=== PATIENT | female | born 1940 | race Hispanic/Latino ===

== ENCOUNTER 2018-08-19 12:24 | Emergency (ER) | payer MEDICARE ==
[~2018-08-19] VITALS: Ht 154.9 cm; Wt 63.5 kg
--- OUTSIDE RECORDS SUMMARY | 2018-08-19 12:26 | XMS REPORT | Clinical Summary ---
Author Author [facility] Organization [facility] Address Unknown Phone Unavailable Care Team Providers Care Facility Practice Specialist Name Role Phone Catrachita Carter MD PCP Allergies Comments Active Allergy Reactions Severity Noted Date Codeine 02/13/2017 Meperidine 02/13/2017 Medications End Date Status Medication Sig Dispensed Refills Start Date Active alendronate (FOSAMAX) 70 Take 70 mg by 0 12/05/ MG tablet mouth every 7 7 days. Pt takes on Mon Active atorvastatin (LIPITOR) 10 Take 10 mg by 0 12/27/ MG tablet mouth every 7 evening. Active cholecalciferol, vitamin Take 1 tablet 0 D3, 5,000 unit tablet by mouth every morning. Active cycloSPORINE (SandIMMUNE) TAKE ONE (1) 0 25 MG capsule CAPSULE(S) BY 7 MOUTH TWICE A DAY. Active diltiazem CD (CardIZEM Take 180 mg 0 CD) 180 MG 24 hr capsule by mouth 2 7 (two) times a day. Active fluticasone (FLONASE) 50 2 sprays by 0 mcg/actuation nasal spray Each Nare 7 route daily as needed. Active furosemide (LASIX) 40 mg Take 40 mg by 0 tablet mouth every 7 morning. Active isosorbide mononitrate Take 30 mg by 0 (IMDUR) 30 MG 24 hr mouth every 7 tablet evening. Active levothyroxine (SYNTHROID, TAKE ONE (1) 0 LEVOXYL) 25 mcg tablet TABLET(S) BY 7 MOUTH DAILY. at 0600 Active metoprolol succinate XL Take 25 mg by 0 (TOPROL-XL) 25 mg 24 hr mouth every 7 tablet morning. Active ondansetron ODT 1 tab under 0 (ZOFRAN-ODT) 4 MG the tongue 7 disintegrating tablet every 6 hrs prn nausea Active potassium chloride 20 mEq Take 1 tablet 0 tablet extended release by mouth 7 every other day. Active predniSONE (DELTASONE) TAKE ONE (1) 0 2.5 mg tablet TABLET(S) BY 8 MOUTH TWICE A DAY. Active repaglinide (PRANDIN) 0.5 Take 1 tablet 0 12/05/ MG tablet daily 30 7 minutes before the dinner meal ( with largest meal ). Active tiZANidine (ZANAFLEX) 4 Take 2 mg by 0 MG tablet mouth nightly 7 as needed. Active traMADol (ULTRAM) 50 mg Take 25 mg by 0 tablet mouth daily as needed. Active aspirin (ECOTRIN) 81 MG Take 81 mg by 0 enteric coated tablet mouth every morning. Active cyanocobalamin 1,000 Inject 1,000 0 mcg/mL injection mcg into the shoulder, thigh, or buttocks every 30 (thirty) days. Active pantoprazole (PROTONIX) Take 40 mg by 0 40 MG EC tablet mouth daily as needed. Active Problems Problem Noted Date Severe sepsis 02/13/2017 Social History Date Tobacco Use Types Packs/Day Years Used Never Smoker Smokeless Tobacco: Never Used Alcohol Use Drinks/Week oz/Week Comments No Sex Assigned at Date Recorded Not on file Industry Job Start Date Occupation Not on file Not on file Not on file Travel End Travel History Travel Start No recent travel history available. Last Filed Vital Signs Not on file Plan of Treatment Health Maintenance Due Date Last Done Comments SHINGLES VACCINES (#1) 1990 INFLUENZA VACCINE 09/06/2018 11/24/2016, 12/08/2015 65+ PNEUMOCOCCAL VACCINE Completed 03/02/2016, 12/08/2006 Results Not on fileafter 08/18/2017 Insurance Type Payer Benefit Subscriber ID Effective Phone Address Plan / Dates Group [facility] xxxxxxxxxxx [id number] MANDI combs [facility] Advance Directives Patient has advance care planning documents, and code status on file. For more i nformation, please contact: Osvaldo Gutierrez [phone] [place] [address] Date Inactivated Comments Code Status Date Activated 02/17/2017 9:53 PM Full Code 02/13/2017 7:36 PM Code Status decision reached by: Patient
--- OUTSIDE RECORDS SUMMARY | 2018-08-19 12:27 | XMS REPORT | Clinical Summary ---
Author Author [facility] Address Unknown Phone Unavailable Care Team Providers Care Supervisor [employer] Name Role Phone Troncoso, Zay Lane PCP Allergies Comments Active Allergy Reactions Severity Noted Date Codeine Nausea And 03/19/2014 Vomiting Meperidine Nausea And 03/19/2014 Vomiting Medications End Date Status Medication Sig Dispensed Refills Start Date Active aspirin 81 MG EC Take 81 mg by 0 tabletIndications: mouth daily. Autoimmune hepatitis (HCC), Rheumatoid arthritis (HCC), Jaundice, Abnormal liver enzymes, Immunity status testing Active ferrous sulfate 324 mg Take 324 mg 0 (65 mg iron) by mouth TbECIndications: daily with Autoimmune hepatitis breakfast. (HCC), Rheumatoid arthritis (HCC), Jaundice, Abnormal liver enzymes, Immunity status testing Active leflunomide (ARAVA) 20 MG Take 20 mg by 0 tabletIndications: mouth daily. Autoimmune hepatitis (HCC), Rheumatoid arthritis (HCC), Jaundice, Abnormal liver enzymes, Immunity status testing Active insulin aspart Inject 0 protamine-insulin aspart subcutaneousl (NOVOLOG MIX 70/30) 100 y 2 (two) unit/mL (70-30) times daily injectionIndications: with Autoimmune hepatitis breakfast and (HCC), Rheumatoid dinner. 15 arthritis (HCC), units sq in Jaundice, Abnormal liver am and 10 enzymes, Immunity status units sq in testing pm Active cycloSPORINE (SANDIMMUNE) Take 25 mg by 0 25 MG capsule mouth 2 (two) 5 times daily Take one capsule by mouth in the AM (25 mg) and one capsule by mouth in the PM (25 MG) . Active predniSONE (DELTASONE) 5 Take 1 tablet 30 tablet 0 MG tablet (5 mg total) 5 by mouth daily. Active FOSAMAX 70 mg tablet Take 70 mg by 0 mouth daily . 9 Active atorvastatin (LIPITOR) 10 Take 10 mg by 0 MG tablet mouth daily. Active DILT-XR 180 mg 24 hr Take 180 mg 0 capsule by mouth 2 9 (two) times daily . Active furosemide (LASIX) 20 MG Take 20 mg by 0 tablet mouth daily. Active isosorbide mononitrate Take 30 mg by 0 (IMDUR) 30 MG 24 hr mouth daily. tablet Active levothyroxine (SYNTHROID, Take 25 mcg 0 LEVOTHROID) 25 MCG tablet by mouth Every morning on an empty stomach. Active metoprolol (TOPROL-XL) 25 Take 25 mg by 0 MG 24 hr tablet mouth daily. Active repaglinide (PRANDIN) 0.5 Take 0.5 mg 0 MG tablet by mouth 3 (three) times daily before meals. Active potassium chloride SA Take 10 mEq 0 (K-DUR,KLOR-CON) 10 MEQ by mouth tablet daily. Active cholecalciferol, vitamin Take 5,000 0 D3, 5,000 unit Tab Units by mouth daily. Active Lactobac no.41/Bifidobact Take by mouth 0 no.7 (PROBIOTIC-10 ORAL) daily. 07/09/2018 Discontinued CALCIUM CARBONATE/VITAMIN Take 1 0 D3 (CALTRATE 600 + D capsule by ORAL)Indications: mouth daily. Autoimmune hepatitis (HCC), Rheumatoid arthritis (HCC), Jaundice, Abnormal liver enzymes, Immunity status testing 07/09/2018 Discontinued VIT B COMP/E AC Take 1 0 SUCC/FA/HC 105 capsule by (ESTRONATURAL mouth daily. ORAL)Indications: Autoimmune hepatitis (HCC), Rheumatoid arthritis (HCC), Jaundice, Abnormal liver enzymes, Immunity status testing 07/09/2018 Discontinued levothyroxine (SYNTHROID, Take 50 mcg 0 LEVOTHROID) 50 MCG by mouth tabletIndications: daily. Autoimmune hepatitis (HCC), Rheumatoid arthritis (HCC), Jaundice, Abnormal liver enzymes, Immunity status testing 07/09/2018 Discontinued cyanocobalamin (VITAMIN Take 100 mcg 0 B-12) 1000 MCG by mouth tabletIndications: daily. Autoimmune hepatitis (HCC), Rheumatoid arthritis (HCC), Jaundice, Abnormal liver enzymes, Immunity status testing 07/09/2018 Discontinued potassium gluconate 595 Take 1 tablet 0 (99) mg TabIndications: by mouth Autoimmune hepatitis daily. (HCC), Rheumatoid arthritis (HCC), Jaundice, Abnormal liver enzymes, Immunity status testing 07/09/2018 Discontinued pantoprazole (PROTONIX) Take 40 mg by 0 40 MG tabletIndications: mouth daily. Autoimmune hepatitis (HCC), Rheumatoid arthritis (HCC), Jaundice, Abnormal liver enzymes, Immunity status testing 07/09/2018 Discontinued metoprolol (TOPROL-XL) 50 Take 50 mg by 0 MG 24 hr mouth daily. tabletIndications: Autoimmune hepatitis (HCC), Rheumatoid arthritis (HCC), Jaundice, Abnormal liver enzymes, Immunity status testing 07/09/2018 Discontinued traMADol (ULTRAM) 50 mg Take 1 tablet 60 tablet 0 tabletIndications: (50 mg total) 5 Autoimmune hepatitis by mouth (HCC), Rheumatoid every 6 (six) arthritis (HCC), hours as Jaundice, Abnormal liver needed for enzymes, Immunity status Pain. testing 07/09/2018 Discontinued predniSONE (DELTASONE) 5 Take 7.5 mg 30 tablet 0 MG tablet (1.5 tablets) 5 once daily for 7 days. Take 5 mg (1 tab) once daily for 7 days. Take 2.5 mg (half tab) once daily for 7 days.. 07/09/2018 Discontinued denosumab (PROLIA) 60 Inject 60 mg 0 mg/mL Syrg subcutaneousl y every 6 (six) months. 07/09/2018 Discontinued cycloSPORINE modified TAKE ONE 270 capsule 0 (NEORAL) 25 MG capsule CAPSULE BY 5 MOUTH EVERY MORNING AND 2 CAPSULES EVERY EVENING Active Problems Problem Noted Date History of hepatitis E virus infection 08/29/2014 Liver failure 06/27/2014 Malaise 06/27/2014 Lupus (systemic lupus erythematosus) 06/27/2014 History of UTI 04/18/2014 Autoimmune hepatitis 03/19/2014 Rheumatoid arthritis 03/19/2014 Jaundice 03/19/2014 Abnormal liver enzymes 03/19/2014 Immunity status testing 03/19/2014 Encounters Care Team Description Date Type Specialty Jorden Thompson MD Autoimmune hepatitis (HCC) (Primary Dx); Rheumatoid arthritis, involving unspecified site, unspecified rheumatoid factor presence (HCC); Immunity status testing 07/09/2018 Office Visit Hepatology after 08/18/2017 Family History Medical History Relation Name Comments Diabetes Brother Heart disease Brother Diabetes Brother Heart disease Brother Colon cancer Brother Relation Name Status Comments Brother Brother Brother Alive Father Mother Social History Date Tobacco Use Types Packs/Day Years Used Quit: 02/06/1979 Former Smoker Cigarettes Smokeless Tobacco: Never Used Alcohol Use Drinks/Week oz/Week Comments No 0.0 SOCIAL-QUIT 1979 Sex Assigned at Date Recorded Not on file Industry Job Start Date Occupation Not on file Not on file Not on file Travel End Travel History Travel Start No recent travel history available. Last Filed Vital Signs Time Taken Vital Sign Reading 07/09/2018 11:04 AM CDT Blood Pressure 152/76 07/09/2018 11:04 AM CDT Pulse 65 07/09/2018 11:04 AM CDT Temperature 36.7 C (98.1 F) 07/09/2018 11:04 AM CDT Respiratory Rate 14 07/09/2018 11:04 AM CDT Oxygen Saturation 97% - Inhaled Oxygen - Concentration 07/09/2018 11:04 AM CDT Weight 64.7 kg (142 lb 9.6 oz) 07/09/2018 11:04 AM CDT Height 155.2 cm (5' 1.1") 07/09/2018 11:04 AM CDT Body Mass Index 26.86 Plan of Treatment Not on file Results Not on fileafter 08/18/2017 Insurance Payer Benefit Subscriber ID Type Phone Address Plan / Group [facility] xxxxxxxxxxx MEDICARE ADV [address] ([place]) [place] [address] Advance Directives For more information, please contact: [address] [address] Date Inactivated Comments Code Status Date Activated 07/14/2014 8:40 PM Full Code 06/27/2014 9:36 PM This code status was determined by: Patient
--- OUTSIDE RECORDS SUMMARY | 2018-08-19 12:29 | XMS REPORT | Continuity of Care Document ---
Author Author [employer] Address Unknown Phone Unavailable Care Team Providers Care Strategic Debriefing Officer Name Role Phone [employer] Unavailable Unavailable Problems Problem Status Onset Date Classification Date Reported Comments Source SCREENING MAMMOGRAM Active 04/16/2015 [facility] ANEMIA, HYPONATREMIA Active 08/03/2014 [facility] ABNORMAL LABS Active 08/03/2014 [facility] AUTOIMMUNE HEPATITIS, JAUNDICE, Active 01/10/2014 [facility] AUTO IMMUNE HTPTISIS Active 01/10/2014 [facility] EXACERBATION OF AUTOIMMUNE HEPATITIS, JA Active 01/10/2014 [facility] PAIN Active 01/08/2014 [facility] SCREENING Active 12/09/2013 [facility] FLARE UP OF LIVER Active 12/11/2012 [facility] AUTOIMMUNE HEPATITIS, UTI Active 12/11/2012 [facility] AUTOIMMUNE HEP Active 12/11/2012 [facility] ROUTINE Active 09/24/[address] [facility] [address] SENT Active 07/17/2012 [facility] LIVER FAILURE Active 07/17/2012 [facility] ELEVATED LFT Active 07/12/2012 [facility] 511.9 Active 10/08/2011 [facility] DENSITY Active 09/06/2011 [facility] ROUTINE SCREENING Active 08/31/2011 [facility] NECK PAIN Active 07/07/2011 [facility] Anemia1 Active 10/04/2007 Problem 04/24/2015 Data migrated from [employer] on 07/05/14. [facility] Hypertensive disorder2 Active 10/04/2007 Problem 04/24/2015 Data migrated from [employer] on 07/05/14. [facility] Migraine3 Active 10/04/2007 Problem 04/24/2015 Data migrated from [employer] on 07/05/14. [facility] Neck pain4 Active 10/04/2007 Problem 04/24/2015 Data migrated from [employer] on 07/05/14. [facility] Shoulder pain5 Active 10/04/2007 Problem 04/24/2015 Data migrated from [employer] on 07/05/14. [facility] Angina Resolved Problem 09/27/2012 [facility] Benign hypertension Resolved Problem 09/27/2012 [facility] H/O: hypothyroidism Active Problem 09/27/2012 [facility] H/O: rheumatoid arthritis Active Problem 09/27/2012 [facility] Hypercholesterolemia Active Problem 09/27/2012 [facility] Liver enzymes abnormal Resolved Problem 09/27/2012 [facility] Nausea Resolved Problem 12/16/2012 [facility] UTI Resolved Problem 12/16/2012 [facility] Angina Resolved Problem 04/24/2015 [facility] Benign hypertension Resolved Problem 04/24/2015 [facility] H/O: hypothyroidism Active Problem 04/24/2015 [facility] H/O: rheumatoid arthritis Active Problem 04/24/2015 [facility] Hypercholesterolemia Active Problem 04/24/2015 [facility] Liver enzymes abnormal Resolved Problem 04/24/2015 [facility] Final: 08/11/2014 [facility] Nausea Resolved Problem 04/24/2015 [facility] UTI (Confirmed) Resolved Problem 04/24/2015 [facility] NECK PAIN, CERVICAL SPONDYLOSIS, Active [facility] CIRRHOSIS OF LIVER NOS Active [facility] HEPATITIS NOS Active [facility] URIN TRACT INFECTION NOS Active [facility] JAUNDICE NOS Active [facility] ANEMIA NOS Active [facility] ENCNTR SCREEN MAMMOGRAM FOR MALIGNANT NE Active [facility] Medications Medication Details Route Status Patient Instructions Ordering Provider Order Date Source Coumadin 3 mg, 3 tab, Route: PO, Drug form: TAB, QSun, Start date: 08/10/14 17:00:00, Duration: 30 day, Stop date: 09/07/14 17:00:00Notes: Nurse to ensure documentation of patient education per anticoagulation policy. Avoid large intake of vitamin-K containing foods diet. (Same As: Coumadin) No Longer Active 08/10/2014 [facility] Cephalexin 500 MG Oral Capsule [Keflex] 500 mg=1 cap, PO, QID, X 5 day, # 20 cap, 0 Refill(s) Active 2014 [facility] Docusate Sodium 100 MG Oral Capsule [Colace] 100 mg=1 cap, PO, BID, PRN as needed for constipation, # 30 cap, 0 Refill(s) Active 2014 [facility] diltiazem 180 mg/24 hours oral capsule, extended release 360 mg=2 cap, PO, Daily, # 60 cap, 0 Refill(s) Active 2014 [facility] spironolactone 50 mg oral tablet 50 mg=1 tab, PO, Daily, 0 Refill(s) Active 2014 [facility] cetirizine 5 mg oral tablet 5 mg=1 tab, PO, Daily, X 30 day, # 30 tab, 0 Refill(s) Active 2014 [facility] Zyrtec 10 mg, 2 tab, Route: PO, Drug form: TAB, Daily, Dosing Weight 70.091, kg, Start date: 08/08/14 9:00:00, Duration: 30 day, Stop date: 09/06/14 9:00:00Notes: (Same As: Zyrtec) Inactive 2014 [facility] Docusate Sodium 100 MG Oral Capsule [Colace] 100 mg, 1 cap, Route: PO, Drug form: CAP, BID, Dosing Weight 70.091, kg, Start date: 08/08/14 9:00:00, Duration: 30 day, Stop date: 09/06/14 17:00:00Notes: (Same as: Colace) (Do Not Crush) Inactive 2014 [facility] Diltiazem Hydrochloride XT 360 mg, 2 cap, Route: PO, Drug form: ERCAP, Daily, Dosing Weight 70.091, kg, Start date: 08/08/14 9:00:00, Duration: 30 day, Stop date: 09/06/14 9:00:00Notes: (Same as:Cardizem CD) Before meals. DO NOT CRUSH. Inactive 2014 [facility] Miralax 17 gm, 1 pkt, Route: PO, Drug form: PWDR, Daily, Dosing Weight 70.091, kg, PRN Constipation, Start date: 08/07/14 19:37:00, Duration: 30 day, Stop date: 09/06/14 19:36:00Notes: Dissolve in 8 oz of water or juice. (Same as: Miralax) No Longer Active 2014 [facility] Robitussin 100 mg, Route: PO, Dosing Weight 70.091, kg, Q6H, Start date: 08/07/14 18:00:00, Duration: 30 day, Stop date: 09/06/14 12:00:00 Inactive 08/07/2014 [facility] Coumadin 2.5 mg, 1 tab, Route: PO, Drug form: TAB, , Dosing Weight 70.091, kg, Start date: 08/07/14 17:00:00, Duration: 30 day, Stop date: 09/04/14 17:00:00Notes: Nurse to ensure documentation of patient education per anticoagulation policy. Avoid large intake of vitamin-K containing foods diet. (Same As: Coumadin) No Longer Active 08/07/2014 [facility] Rocephin 1 gm, Route: IVPB, [id number], Dosing Weight 70.091, kg, Start date: 08/07/14 16:00:00, Duration: 30 day, Stop date: 09/05/14 16:00:00Notes: Mix in NS 100ml ADV bag and infuse over 30 Minutes (Same As: Rocephin) No Longer Active 08/07/2014 [facility] Robitussin 100 mg, 5 mL, Route: PO, Drug Form: LIQ, Dosing Weight 70.091, kg, Q6H, PRN Cough, Start date: 08/07/14 13:33:00, Duration: 30 day, Stop date: 09/06/14 13:32:00Notes: (Same as: Robitussin) No Longer Active 08/07/2014 [facility] Cardizem 240 mg, 1 cap, Route: PO, Drug form: ERCAP, ONCE, Dosing Weight 70.091, kg, Start date: 08/07/14 13:14:00, Stop date: 08/07/14 13:14:00Notes: (Same as: Cardizem CD) Before meals. DO NOT CRUSH. Inactive 08/07/2014 [facility] ferrous sulfate 225 mg, 3.75 mL, Route: PO, Drug form: LIQ, TID, Start date: 08/07/14 13:00:00, Duration: 30 day, Stop date: 09/06/14 9:00:00Notes: Give with food. iron elemental 12mg/ia=698pk/5ml as ferrous sulfate No Longer Active 08/07/2014 [facility] Robitussin Route: PO, Drug Form: TAB, Dosing Weight 70.091, kg, Q6H, PRN Cough, Start date: 08/07/14 12:39:00, Duration: 30 day, Stop date: 09/06/14 12:38:00 Inactive 08/07/2014 [facility] Tylenol 325 mg, 1 tab, Route: PO, Drug form: TAB, Daily, Dosing Weight 70.091, kg, PRN Headache 1-5, Start date: 08/07/14 10:03:00, Duration: 30 day, Stop date: 09/06/14 10:02:00Notes: Do not exceed 4 gm/day. (Same as: Tylenol) No Longer Active 08/07/2014 [facility] Aldactone 50 mg, 1 tab, Route: PO, Drug form: TAB, Daily, Dosing Weight 70.091, kg, Start date: 08/07/14 9:00:00, Duration: 30 day, Stop date: 09/05/14 9:00:00Notes: (Same As: Aldactone) No Longer Active 08/07/2014 [facility] diltiazem 125 mg + Sodium Chloride 0.9% (titrate) 100 mL 100 mL, Rate: Titrate, Dosing Weight 70.091, kg, Route: IV, Total Volume: 125 mL, Start Date: 08/07/14 0:02:00, Duration: 30 day, Stop date: 09/06/14 0:01:00, Replace Every: 24 hrNotes: (Same as: Cardizem) No Longer Active 08/07/2014 [facility] Diltiazem Hydrochloride XT 120 mg, 1 cap, Route: PO, Drug form: ERCAP, Daily, Dosing Weight 70.091, kg, Start date: 08/06/14 17:05:00, Duration: 30 day, Stop date: 09/05/14 9:00:00Notes: (Same as: Cardizem CD) Do Not Crush Before meals. No Longer Active 08/06/2014 [facility] Coumadin 3 mg, 3 tab, Route: PO, Drug form: TAB, Q-M-W-F, Start date: 08/06/14 17:00:00, Duration: 30 day, Stop date: 09/03/14 17:00:00Notes: Nurse to ensure documentation of patient education per anticoagulation policy. Avoid large intake of vitamin-K containing foods diet. (Same As: Coumadin) Inactive 08/06/2014 [facility] cyclosporine, modified 25 MG Oral Capsule 50 mg, 2 cap, Route: PO, Drug form: CAP, QPM, Dosing Weight 70.091, kg, Start date: 08/06/14 17:00:00, Duration: 30 day, Stop date: 09/04/14 17:00:00Notes: "Avoid grapefruit and grapefruit juice Neoral No Longer Active 08/06/2014 [facility] Actigall 300 mg, 1 cap, Route: PO, Drug form: CAP, TID, Start date: 08/06/14 12:00:00, Duration: 30 day, Stop date: 09/05/14 9:00:00Notes: (Same As: Actigall) No Longer Active 08/06/2014 [facility] Aldactone 25 mg, 1 tab, Route: PO, Drug form: TAB, ONCE, Start date: 08/06/14 9:00:00, Stop date: 08/06/14 9:00:00Notes: (Same As: Aldactone) Inactive 08/06/2014 [facility] Prednisone 5 mg, 1 tab, Route: PO, Drug form: TAB, Daily, Dosing Weight 70.091, kg, Start date: 08/06/14 9:00:00, Duration: 30 day, Stop date: 09/04/14 9:00:00Notes: Take with food. No Longer Active 08/06/2014 [facility] Slow Release Iron 45 mg oral tablet, extended release 45 mg, 1 tab, Route: PO, Drug form: ERTAB, Daily, Dosing Weight 70.091, kg, Start date: 08/06/14 9:00:00, Duration: 30 day, Stop date: 09/04/14 9:00:00 No Longer Active 08/06/2014 [facility] Ursodeoxycholate 500 mg, Route: PO, Drug form: TAB, TID, Dosing Weight 70.091, kg, Start date: 08/06/14 9:00:00, Duration: 30 day, Stop date: 09/04/14 17:00:00 Inactive 08/06/2014 [facility] Arava 20 mg, 2 tab, Route: PO, Drug form: TAB, Daily, Dosing Weight 70.091, kg, Start date: 08/06/14 9:00:00, Stop date: 09/04/14 9:00:00Notes: Non-Formulary Drug. (Same as:Arava) No Longer Active 08/06/2014 [facility] cyclosporine, modified 25 MG Oral Capsule 25 mg, 1 cap, Route: PO, Drug form: CAP, QAM, Dosing Weight 70.091, kg, Start date: 08/06/14 9:00:00, Duration: 30 day, Stop date: 09/04/14 9:00:00Notes: "Avoid grapefruit and grapefruit juice Neoral No Longer Active 08/06/2014 [facility] ursodiol 500 mg oral tablet 500 mg=1 tab, PO, TID, 0 Refill(s) Active 08/06/2014 [facility] cycloSPORINE microemulsion 50 mg oral capsule 50 mg=1 cap, PO, QPM, # 60 cap, 0 Refill(s) Active 08/06/2014 [facility] cyclosporine, modified 25 MG Oral Capsule 25 mg=1 cap, PO, QAM, # 180 cap, 0 Refill(s) Active 08/06/2014 [facility] leflunomide 20 MG Oral Tablet [Arava] 20 mg=1 tab, PO, Daily, # 30 tab, 0 Refill(s) Active 08/06/2014 [facility] Fosamax 70 mg, PO, Q7D, 0 Refill(s) Active 08/06/2014 [facility] diltiazem 125 mg + Sodium Chloride 0.9% (titrate) 100 mL 100 mL, Rate: Titrate, Dosing Weight 70.091, kg, Route: IV, Total Volume: 125 mL, Start Date: 08/05/14 18:18:00, Duration: 30 day, Stop date: 09/04/14 18:17:00, Replace Every: 24 hrNotes: (Same as: Cardizem) No Longer Active 08/05/2014 [facility] Diltiazem 10 mg, 2 mL, Route: IV, Drug form: INJ, ONCE, Dosing Weight 70.091, kg, Start date: 08/05/14 17:58:00, Stop date: 08/05/14 17:58:00Notes: (Same as: Cardizem) Inactive 08/05/2014 [facility] predniSONE 5 mg oral tablet 5 mg=1 tab, PO, Daily, 0 Refill(s) On Hold 08/05/2014 [facility] Aspirin 81 MG Enteric Coated Tablet 81 mg, 1 tab, Route: PO, Drug form: ECTAB, Daily, Dosing Weight 60.455, kg, Start date: 08/05/14 9:00:00, Duration: 30 day, Stop date: 09/03/14 9:00:00Notes: Do not crush or chew. (Same As: Ecotrin) No Longer Active 08/05/2014 [facility] Detrol LA 4 mg, 1 cap, Route: PO, Drug form: CAP, Daily, Dosing Weight 60.455, kg, Start date: 08/05/14 9:00:00, Duration: 30 day, Stop date: 09/03/14 9:00:00Notes: Do Not Crush. (Same As: Detrol LA) No Longer Active 08/05/2014 [facility] Prednisone 60 mg, 3 tab, Route: PO, Drug form: TAB, Daily, Dosing Weight 60.455, kg, Start date: 08/05/14 9:00:00, Duration: 30 day, Stop date: 09/03/14 9:00:00Notes: Take with food. No Longer Active 08/05/2014 [facility] metoprolol tartrate 25 mg, 1 tab, Route: PO, Drug form: ERTAB, Daily, Dosing Weight 60.455, kg, Start date: 08/05/14 9:00:00, Duration: 30 day, Stop date: 09/03/14 9:00:00Notes: (Same as: Toprol XL) Do Not Crush No Longer Active 08/05/2014 [facility] Isosorbide 30 mg, 1 tab, Route: PO, Drug form: ERTAB, Daily, Dosing Weight 60.455, kg, Start date: 08/05/14 9:00:00, Duration: 30 day, Stop date: 09/03/14 9:00:00Notes: (Same as:Imdur) "Do Not Crush" Take on empty stomach/ full glass of water. Do not crush No Longer Active 08/05/2014 [facility] Slow Release Iron 45 mg oral tablet, extended release 45 mg, 1 tab, Route: PO, Drug form: ERTAB, Daily, Dosing Weight 60.455, kg, Start date: 08/05/14 9:00:00, Duration: 30 day, Stop date: 09/03/14 9:00:00 No Longer Active 08/05/2014 [facility] Thyroxine 50 microgram, 1 tab, Route: PO, Drug form: TAB, Q630AM, Dosing Weight 60.455, kg, Start date: 08/05/14 6:30:00, Duration: 30 day, Stop date: 09/03/14 6:30:00Notes: Take 1 hour before or 2 hours after meal; Enteral feeds may interefere with the absorption of this medication.(Same as:Levothroid, Synthroid) No Longer Active 08/05/2014 [facility] Spironolactone 25 mg, 1 tab, Route: PO, Drug form: TAB, BID, Dosing Weight 60.455, kg, Start date: 08/04/14 17:00:00, Duration: 30 day, Stop date: 09/03/14 9:00:00Notes: (Same As: Aldactone) No Longer Active 08/04/2014 [facility] calcium-vitamin D 600 mg-200 units oral tablet 1 tab, Route: PO, Drug Form: TAB, Dosing Weight 60.455, kg, BID, Start date: 08/04/14 17:00:00, Duration: 30 day, Stop date: 09/03/14 9:00:00Notes: (Same As: Ubaldo-D, OsCal-D, Oyster Calcium) No Longer Active 08/04/2014 [facility] pantoprazole 40 mg, 1 tab, Route: PO, Drug form: ECTAB, Before Dinner, Dosing Weight 60.455, kg, Start date: 08/04/14 16:30:00, Duration: 30 day, Stop date: 09/02/14 16:30:00Notes: Tablet should not be chewed or crushed. (Same as: Protonix) No Longer Active 08/04/2014 [facility] Enoxaparin 30 mg, 0.3 mL, Route: SUB-Q, Drug form: INJ, [id number], Dosing Weight 60.455, kg, Start date: 08/04/14 15:00:00, Duration: 30 day, Stop date: 09/02/14 15:00:00Notes: (Same as: Lovenox) No Longer Active 08/04/2014 [facility] Vitamin B12 1,000 microgram, 1 mL, Route: IM, Drug form: INJ, Q30D, Dosing Weight 60.455, kg, Start date: 08/04/14 15:00:00, Duration: 30 day, Stop date: 09/03/14 9:00:00Notes: (Same As: Vitamin B12) No Longer Active 08/04/2014 [facility] nitroglycerin 0.4 mg sublingual tablet 0.4 mg, 1 tab, Route: SL, Drug form: TAB, Q5Min, PRN Chest Pain, Start date: 08/04/14 9:15:00, Duration: 30 day, Stop date: 09/03/14 9:14:00Notes: (Same as:Nitroquick, Nitrostat) "Do Not Crush" Sublingual tablet No Longer Active 08/04/2014 [facility] atropine 0.5 mg, 5 mL, Route: IVP, Drug form: INJ, PRN, PRN Bradycardia, Start date: 08/04/14 9:15:00, Duration: 30 day, Stop date: 09/03/14 9:14:00 No Longer Active 08/04/2014 [facility] Sodium Chloride 0.154 MEQ/ML Injectable Solution 1,000 mL, Rate: 90 ml/hr, Infuse over: 11.1 hr, Route: IV, Dosing Weight 56.818 kg, Total Volume: 1,000, Start date: 08/04/14 5:49:00, Duration: 30 day, Stop date: 09/03/14 5:48:00 No Longer Active 08/04/2014 [facility] Saline Flush 0.9% 10 ml, Route: IVP, Drug Form: INJ, Dosing Weight 56.818, kg, PRN, PRN Line Flush, Start date: 08/04/14 5:49:00, Duration: 30 day, Stop date: 09/03/14 5:48:00Notes: (Same as: BD Posiflush) No Longer Active 08/04/2014 [facility] Ondansetron 4 mg, 2 mL, Route: IVP, Drug form: INJ, Q8H, Dosing Weight 56.818, kg, PRN Nausea & Vomiting, Start date: 08/04/14 5:49:00, Duration: 30 day, Stop date: 09/03/14 5:48:00Notes: (Same as: Candy) MEDICATION WASTE Product Size: 4 mg Product Wasted: ___ mg No Longer Active 08/04/2014 [facility] Morphine 2 mg, 1 mL, Route: IVP, Drug form: INJ, Q3H, Dosing Weight 56.818, kg, PRN Pain Score 4-6, Start date: 08/04/14 5:49:00, Duration: 30 day, Stop date: 09/03/14 5:48:00Notes: (Same as:MORPhine Sulfate) No Longer Active 08/04/2014 [facility] Sodium Chloride 0.154 MEQ/ML Injectable Solution 500 mL, 500 ml/hr, Infuse Over: 1 hr, Route: IV, 500, Drug form: INJ, ONCE, Priority: STAT, Dosing Weight 56.818 kg, Start date: 08/04/14 1:25:00, Duration: 1 doses or times, Stop date: 08/04/14 1:25:00 Inactive 08/04/2014 [facility] Ondansetron 4 mg, 2 mL, Route: IVP, Drug form: INJ, ONCE, Dosing Weight 56.818, kg, Priority: STAT, Start date: 08/03/14 23:05:00, Stop date: 08/03/14 23:05:00Notes: (Same as: Zofran) MEDICATION WASTE Product Size: 4 mg Product Wasted: ___ mg No Longer Active 08/04/2014 [facility] pantoprazole 40 mg, Route: IVP, Drug form: INJ, ONCE, Dosing Weight 56.818, kg, For IV push reconstitute with 10 ml 0.9% sodium chloride and push over at least 3 minutes, Priority: STAT, Start date: 08/03/14 23:05:00, Stop date: 08/03/14 23:05:00Notes: For IV push reconstitute with 10 ml 0.9% sodium chloride and push over 2 minutes. (Same as: Protonix) No Longer Active 08/04/2014 [facility] Saline Flush 0.9% 10 mL, Route: IVP, Drug Form: INJ, Dosing Weight 56.818, kg, PRN, PRN Line Flush, Start date: 08/03/14 23:05:00, Duration: 30 day, Stop date: 09/02/14 23:04:00Notes: (Same as: BD Posiflush) No Longer Active 08/04/2014 [facility] Prednisone 60 mg, 3 tab, Route: PO, Drug form: TAB, Daily, Dosing Weight 69.545, kg, Start date: 01/16/14 9:00:00, Duration: 30 day, Stop date: 02/14/14 9:00:00Notes: Take with food. No Longer Active 01/16/2014 [facility] predniSONE 20 mg oral tablet 60 mg, PO, Daily, 0 Refill(s) Active 01/15/2014 [facility] Prednisone 60 mg, 3 tab, Route: PO, Drug form: TAB, ONCE, Dosing Weight 69.545, kg, Start date: 01/15/14 9:03:00, Stop date: 01/15/14 9:03:00Notes: Take with food. Inactive 01/15/2014 [facility] Methylprednisolone 125 mg, 2 mL, Route: IVP, Drug form: INJ, BID, Dosing Weight 69.545, kg, Start date: 01/14/14 9:00:00, Duration: 30 day, Stop date: 02/12/14 17:00:00Notes: (Same as:Solu-MEDROL, A-Methapred) No Longer Active 01/14/2014 [facility] NS 1,000 mL 1,000 mL, Rate: 64 ml/hr, Infuse over: 15.6 hr, Route: IV, Dosing Weight 69.545 kg, Total Volume: 1,000, Start date: 01/12/14 19:53:00, Duration: 30 day, Stop date: 02/11/14 19:52:00 No Longer Active 01/13/2014 [facility] Sodium Chloride 0.9% IV 500 mL 500 mL, Rate: 64 ml/hr, Infuse over: 7.8 hr, Route: IV, Dosing Weight 69.545 kg, Total Volume: 500, Start date: 01/12/14 15:28:00, Stop date: 02/09/14 14:47:00 Inactive 01/12/2014 [facility] Detrol LA 4 mg, 1 cap, Route: PO, Drug form: CAP, Daily, Dosing Weight 69.545, kg, Start date: 01/12/14 9:00:00, Duration: 30 day, Stop date: 02/10/14 9:00:00Notes: Do Not Crush. (Same As: Detrol LA) No Longer Active 01/12/2014 [facility] ferrous sulfate 325 mg, 1 tab, Route: PO, Drug form: ECTAB, Daily, Start date: 01/12/14 9:00:00, Duration: 30 day, Stop date: 02/10/14 9:00:00Notes: Give with food. "Do Not Crush" No Longer Active 01/12/2014 [facility] metoprolol tartrate 25 mg, 1 tab, Route: PO, Drug form: ERTAB, Daily, Dosing Weight 69.545, kg, Start date: 01/12/14 9:00:00, Duration: 30 day, Stop date: 02/09/14 21:00:00Notes: (Same as: Toprol XL) Do Not Crush No Longer Active 01/12/2014 [facility] Slow Release Iron 45 mg oral tablet, extended release 45 mg, 1 tab, Route: PO, Drug form: ERTAB, Daily, Dosing Weight 69.545, kg, Start date: 01/12/14 9:00:00, Duration: 30 day, Stop date: 02/10/14 9:00:00 No Longer Active 01/12/2014 [facility] Aspirin 81 MG Enteric Coated Tablet 81 mg, 1 tab, Route: PO, Drug form: ECTAB, Daily, Dosing Weight 69.545, kg, Start date: 01/12/14 9:00:00, Duration: 30 day, Stop date: 02/10/14 9:00:00Notes: Do not crush or chew. (Same As: Ecotrin) No Longer Active 01/12/2014 [facility] Entocort EC 9 mg, Route: PO, Drug form: ERCAP, Daily, Dosing Weight 69.545, kg, Start date: 01/12/14 9:00:00, Duration: 30 day, Stop date: 02/10/14 9:00:00 No Longer Active 01/12/2014 [facility] Thyroxine 50 microgram, 1 tab, Route: PO, Drug form: TAB, Q630AM, Dosing Weight 69.545, kg, Start date: 01/12/14 6:30:00, Duration: 30 day, Stop date: 02/10/14 6:30:00Notes: Take 1 hour before or 2 hours after meal; Enteral feeds may interefere with the absorption of this medication.(Same as:Levothroid, Synthroid) No Longer Active 01/12/2014 [facility] Spironolactone 25 mg, 1 tab, Route: PO, Drug form: TAB, Q12H, Dosing Weight 69.545, kg, Start date: 01/11/14 21:00:00, Duration: 30 day, Stop date: 02/10/14 9:00:00Notes: (Same As: Aldactone) No Longer Active 01/12/2014 [facility] Isosorbide 30 mg, 1 tab, Route: PO, Drug form: ERTAB, Daily, Dosing Weight 69.545, kg, Start date: 01/11/14 21:00:00, Stop date: 02/10/14 9:00:00Notes: (Same as:Imdur) "Do Not Crush" Take on empty stomach/ full glass of water. Do not crush No Longer Active 01/12/2014 [facility] pantoprazole 40 mg, 1 tab, Route: PO, Drug form: ECTAB, Before Dinner, Dosing Weight 69.545, kg, Start date: 01/11/14 16:30:00, Duration: 30 day, Stop date: 02/09/14 16:30:00Notes: Tablet should not be chewed or crushed. (Same as: Protonix) No Longer Active 01/11/2014 [facility] Enoxaparin 40 mg, 0.4 mL, Route: SUB-Q, Drug form: INJ, [id number], Dosing Weight 69.545, kg, Start date: 01/11/14 12:00:00, Duration: 30 day, Stop date: 02/09/14 12:00:00Notes: (Same as: Lovenox) No Longer Active 01/11/2014 [facility] multivitamin 1 tab, Route: PO, Drug Form: TAB, Daily, Start date: 01/11/14 9:00:00, Duration: 30 day, Stop date: 02/09/14 9:00:00Notes: (Same as:One Tab Daily, Tab-A-Leanne + Beta Carotene) Give with food. No Longer Active 01/11/2014 [facility] metoprolol 25 mg oral tablet, extended release PO, Daily, 0 Refill(s) Active 01/10/2014 [facility] Entocort EC 3 mg oral capsule, extended release 9 mg=3 cap, PO, Daily, # 90 cap, 0 Refill(s) No Longer Active 01/10/2014 [facility] spironolactone 25 mg oral tablet 25 mg=1 tab, PO, BID, # 60 tab, 0 Refill(s) Active 01/10/2014 [facility] tramadol hydrochloride 50 MG Oral Tablet 50 mg=1 tab, PO, Q4H, Pain, # 60 tab, 0 Refill(s) Active 01/10/2014 [facility] methylPREDNISolone 125 mg, 2 mL, Route: IV, Drug form: INJ, Q6H-02, Start date: 01/10/14 15:00:00, Duration: 30 day, Stop date: 02/09/14 14:00:00Notes: (Same as:Solu-MEDROL, A-Methapred) No Longer Active 01/10/2014 [facility] NovoLOG FlexPen 1 unit, 0.01 mL, Route: SUB-Q, Drug form: SOLN, QID-Before Meals, PRN Blood Glucose Results, Start date: 01/10/14 14:52:00, Duration: 30 day, Stop date: 02/09/14 14:51:00Notes: Roll in palms of hands gently; Do not shake vigorously. (Same as: NovoLOG) "single patient use only" Stable for 28 days at room temperature. Expires in days from Date No Longer Active 01/10/2014 [facility] Dextrose 50% in Water IV 50 mL, Route: IVP, Start date: 01/10/14 14:52:00, Duration: 30 day, Stop date: 02/09/14 14:51:00, PRN Blood Glucose Results No Longer Active 01/10/2014 [facility] glucagon 1 mg, Route: IM, Drug form: PDR/INJ, PRN, PRN Blood Glucose Results, Start date: 01/10/14 14:52:00, Duration: 30 day, Stop date: 02/09/14 14:51:00 No Longer Active 01/10/2014 [facility] NovoLOG FlexPen 4 unit, 0.04 mL, Route: SUB-Q, Drug form: SOLN, QID-Before Meals, PRN Blood Glucose Results, Start date: 01/10/14 14:51:00, Duration: 30 day, Stop date: 02/09/14 14:50:00Notes: Roll in palms of hands gently; Do not shake vigorously. (Same as: NovoLOG) "single patient use only" Stable for 28 days at room temperature. Expires in days from Date No Longer Active 01/10/2014 [facility] NovoLOG FlexPen 2 unit, 0.02 mL, Route: SUB-Q, Drug form: SOLN, QID-Before Meals, PRN Blood Glucose Results, Start date: 01/10/14 14:50:00, Duration: 30 day, Stop date: 02/09/14 14:49:00Notes: Roll in palms of hands gently; Do not shake vigorously. (Same as: NovoLOG) "single patient use only" Stable for 28 days at room temperature. Expires in days from Date No Longer Active 01/10/2014 [facility] Sodium Chloride 0.9% IV 500 mL 500 mL, Rate: 64 ml/hr, Infuse over: 7.8 hr, Route: IV, Dosing Weight 69.545 kg, Total Volume: 500, Start date: 01/10/14 14:49:00, Duration: 30 day, Stop date: 02/09/14 14:48:00 No Longer Active 01/10/2014 [facility] predniSONE 20 mg, 1 tab, Route: PO, Drug form: TAB, TID, Dosing Weight 67.955, kg, Start date: 12/14/12 13:00:00, Duration: 1 week, Stop date: 12/21/12 9:00:00Take with food. Inactive Yaa 12/14/2012 [facility] predniSONE 20 mg oral tablet 20 mg, 1 tab, PO, TID, 30 tab, Substitution Allowed, TAB Active [place] 12/14/2012 [facility] Vitamin B12 1,000 microgram, 1 mL, Route: IM, Drug form: INJ, Q30D, Start date: 12/13/12 13:00:00, Duration: 30 day, Stop date: 01/12/13 9:00:00(Same As: Vitamin B12) No Longer Active [facility] 12/13/2012 [facility] Lovenox 40 mg, 0.4 mL, Route: SUB-Q, Drug form: INJ, [id number], Dosing Weight 67.955, kg, Start date: 12/13/12 12:00:00, Duration: 30 day, Stop date: 01/11/13 12:00:00(Same as: Lovenox) No Longer Active [facility] 12/13/2012 [facility] pantoprazole 40 mg, 1 tab, Route: PO, Drug form: ECTAB, Before Dinner, Dosing Weight 68.182, kg, Start date: 12/12/12 16:30:00, Duration: 30 day, Stop date: 01/10/13 16:30:00Tablet should not be chewed or crushed. (Same as: Protonix) No Longer Active [place] 12/12/2012 [facility] calcium-vitamin D 500 mg-200 intl units oral tablet 1 tab, Route: PO, Drug Form: TAB, BID, Start date: 12/12/12 9:00:00, Duration: 30 day, Stop date: 01/10/13 17:00:00(Same As: Ubaldo-D, OsCal-D, Oyster Calcium) No Longer Active [facility] 12/12/2012 [facility] Detrol LA 4 mg, 1 cap, Route: PO, Drug form: CAP, Daily, Dosing Weight 68.182, kg, Start date: 12/12/12 9:00:00, Duration: 30 day, Stop date: 01/10/13 9:00:00Do Not Crush. (Same As: Detrol LA) No Longer Active [place] 12/12/2012 [facility] hydrochlorothiazide-losartan 12.5 mg-50 mg oral tablet 1 tab, Route: PO, Drug Form: TAB, Dosing Weight 67.955, kg, Daily, Start date: 12/12/12 9:00:00, Duration: 30 day, Stop date: 01/10/13 9:00:00 Inactive [facility] 12/12/2012 [facility] isosorbide mononitrate 30 mg, 1 tab, Route: PO, Drug form: ERTAB, Daily, Dosing Weight 68.182, kg, Start date: 12/12/12 9:00:00, Duration: 30 day, Stop date: 01/10/13 9:00:00(Same as:Imdur) "Do Not Crush" Take on e mpty stomach/ full glass of water. Do not crush No Longer Active [facility] 12/12/2012 [facility] calcium-vitamin D 600 mg-200 units oral tablet 1 tab, Route: PO, Drug Form: TAB, Dosing Weight 67.955, kg, BID, Start date: 12/12/12 9:00:00, Duration: 30 day, Stop date: 01/10/13 17:00:00 Inactive [facility] 12/12/2012 [facility] Cozaar 50 mg, 2 tab, Route: PO, Drug form: TAB, Daily, Start date: 12/12/12 9:00:00, Duration: 30 day, Stop date: 01/10/13 9:00:00(Same as: Cozaar) No Longer Active [facility] 12/12/2012 [facility] Microzide 12.5 mg, 1 cap, Route: PO, Drug form: CAP, Daily, Start date: 12/12/12 9:00:00, Duration: 30 day, Stop date: 01/10/13 9:00:00(Same as: Microzide) With food. No Longer Active [facility] 12/12/2012 [facility] aspirin 81 mg tablet, enteric coated 81 mg, 1 tab, Route: PO, Drug form: ECTAB, Daily, Dosing Weight 68.182, kg, Start date: 12/12/12 9:00:00, Duration: 30 day, Stop date: 01/10/13 9:00:00Do not crush or chew. (Same As: Ecotrin) No Longer Active [facility] 12/12/2012 [facility] Fioricet oral tablet 1 tab, Route: PO, Drug Form: TAB, Dosing Weight 67.955, kg, Q4H, PRN as needed for headache, Start date: 12/12/12 8:28:00, Duration: 30 day, Stop date: 01/11/13 8:27:00([id number]-grgnqeprte-hylgmmak 325-50-40mg) Do not exceed 4 gm/day of acetaminophen. (Same as: Esgic, Fioricet) No Longer Active [place] 12/12/2012 [facility] levothyroxine 50 microgram, 1 tab, Route: PO, Drug form: TAB, Q630AM, Dosing Weight 68.182, kg, Start date: 12/12/12 6:30:00, Duration: 30 day, Stop date: 01/10/13 6:30:00Take 1 hour before or 2 hours after meal; Ent eral feeds may interefere with the absorption of this medication.(Same as:Levothroid, Synthroid) No Longer Active [place] 12/12/2012 [facility] SoluMedrol 125 mg, 2 mL, Route: IVP, Drug form: INJ, Q6H, Dosing Weight 68.182, kg, Start date: 12/12/12 0:00:00, Duration: 30 day, Stop date: 01/10/13 18:00:00(Same as:Solu-Medrol, A-Methapred) No Longer Active Yaa 12/12/2012 [facility] insulin aspart 1 unit, 0.01 mL, Route: SUB-Q, Drug form: SOLN, TID-Before Meals, Dosing Weight 68.182, kg, PRN Blood Glucose Results, Start date: 12/11/12 22:47:00, Duration: 30 day, Stop date: 01/10/13 22:46:00Rol l in palms of hands gently; Do not shake vigorously. (Same as: NovoLog) "single patient use only" Stable for 28 days at room temperature. Expires in days from Date No Longer Active [place] 12/12/2012 [facility] glucagon 1 mg, Route: IM, Drug form: PDR/INJ, PRN, Dosing Weight 68.182, kg, PRN Blood Glucose Results, Start date: 12/11/12 22:47:00, Duration: 30 day, Stop date: 01/10/13 22:46:00 No Longer Active [place] 12/12/2012 [facility] Dextrose 50% Syringe 25 gm, 50 mL, Route: IVP, Drug Form: INJ, Dosing Weight 68.182, kg, PRN, PRN Blood Glucose Results, Start date: 12/11/12 22:47:00, Duration: 30 day, Stop date: 01/10/13 22:46:00 No Longer Active [place] 12/12/2012 [facility] Sodium Chloride 0.9% IV 1,000 mL 1,000 mL, Rate: 125 ml/hr, Infuse over: 8 hr, Route: IV, Dosing Weight 68.182 kg, Total Volume: 1,000, Start date: 12/11/12 22:47:00, Duration: 30 day, Stop date: 01/10/13 22:46:00 No Longer Active [place] 12/12/2012 [facility] Saline Flush 0.9% 5 ml, Route: IVP, Drug Form: INJ, Dosing Weight 68.182, kg, PRN, PRN Line Flush, Start date: 12/11/12 22:47:00, Duration: 30 day, Stop date: 01/10/13 22:46:00(Same as: BD Posiflush) No Longer Active [facility] 12/12/2012 [facility] ondansetron 4 mg, 2 mL, Route: IVP, Drug form: INJ, Q8H, Dosing Weight 68.182, kg, PRN Nausea & Vomiting, Start date: 12/11/12 22:47:00, Duration: 30 day, Stop date: 01/10/13 22:46:00(Same as: Zofran) No Longer Active [facility] 12/12/2012 [facility] docusate 100 mg, 1 cap, Route: PO, Drug form: CAP, BID, Dosing Weight 68.182, kg, PRN Constipation, Start date: 12/11/12 22:47:00, Duration: 30 day, Stop date: 01/10/13 22:46:00(Same as: Colace) (Do Not Crush) No Longer Active [facility] 12/12/2012 [facility] ceftriaxone + Sodium Chloride 0.9% IV 100 mL 1 gm, Route: IVPB, [id number], Dosing Weight 68.182, kg, Priority: STAT, Start date: 12/11/12 22:47:00, Duration: 30 day, Stop date: 01/09/13 22:47:00(Same As: Rocephin). Use with 100ml NS mini-bag PLUS and infuse over 30 min No Longer Active [facility] 12/12/2012 [facility] predniSONE 10 mg oral tablet 10 mg, 1 tab, PO, QSun, Substitution Allowed No Longer Active 12/12/2012 [facility] predniSONE 10 mg oral tablet 10 mg, 1 tab, PO, Q-M-W-F, Substitution Allowed No Longer Active 12/12/2012 [facility] glipiZIDE 5 mg oral tablet 2.5 mg, 0.5 tab, PO, Before Breakfast, Substitution Allowed Active 12/12/2012 [facility] pantoprazole 40 mg oral enteric coated tablet 40 mg, 1 tab, PO, Before Dinner, Substitution Allowed Active 12/12/2012 [facility] Fioricet oral tablet 1 tab, PO, Q4H, PRN, as needed for headache, Substitution Allowed, Maintenance Active 12/12/2012 [facility] potassium gluconate 595 mg oral tablet 595 mg, 1 tab, PO, Daily, Substitution Allowed Active 12/12/2012 [facility] Slow Release Iron 45 mg oral tablet, extended release 45 mg, 1 tab, Daily, Substitution Allowed Active 12/12/2012 [facility] predniSONE 20 mg oral tablet 60 mg, 3 tab, PO, Daily, 120 tab, Substitution Allowed, TAB PO Active [facility] 07/23/2012 [facility] pantoprazole 40 mg oral enteric coated tablet 40 mg, 1 tab, PO, Before Dinner, 30 tab, Substitution Allowed, ECTAB PO Active [facility] 07/23/2012 [facility] glipiZIDE 5 mg oral tablet 5 mg, 1 tab, PO, BID-Before Meals, 60 tab, Substitution Allowed, TAB PO Active [facility] 07/23/2012 [facility] calcium carbonate 500 mg (200 mg elemental calcium) oral tablet 1,000 mg, 2 tab, CHEW, TID, PRN, 120 tab, Indigestion, Substitution Allowed, CHEWTAB CHEW Active [facility] 07/23/2012 [facility] glipiZIDE 5 mg oral tablet 5 mg, 1 tab, Route: PO, Drug form: TAB, BID-Before Meals, Dosing Weight 62.7, kg, Start date: 07/22/12 7:30:00, Duration: 30 day, Stop date: 08/20/12 16:30:00 PO No Longer Active [place] 07/22/2012 [facility] MiraLax 34 gm, 2 pkt, Route: PO, Drug form: PWDR, Bedtime, PRN Constipation, Start date: 07/21/12 14:03:00, Duration: 30 day, Stop date: 08/20/12 14:02:00 PO No Longer Active [place] 07/21/2012 [facility] phytonadione 10 mg, 1 mL, Route: SUB-Q, Drug form: INJ, Daily, Start date: 07/21/12 9:00:00, Duration: 3 day, Stop date: 07/23/12 9:00:00 SUB-Q No Longer Active [place] 07/21/2012 [facility] predniSONE 60 mg, 3 tab, Route: PO, Drug form: TAB, Daily, Start date: 07/20/12 17:52:00, Duration: 30 day, Stop date: 08/19/12 9:00:00 PO No Longer Active [place] 07/20/2012 [facility] Protonix 40 mg, 1 tab, Route: PO, Drug form: ECTAB, Before Dinner, Dosing Weight 62.7, kg, Start date: 07/20/12 16:30:00, Duration: 30 day, Stop date: 08/18/12 16:30:00 PO No Longer Active [place] 07/20/2012 [facility] Dextrose 50% in Water IV 50 mL, Route: IVP, Start date: 07/20/12 14:15:00, Duration: 30 day, Stop date: 08/19/12 14:14:00, PRN Blood Glucose Results IVP No Longer Active [facility] 07/20/2012 [facility] glucagon 1 mg, Route: IM, Drug form: PDR/INJ, PRN, PRN Blood Glucose Results, Start date: 07/20/12 14:15:00, Duration: 30 day, Stop date: 08/19/12 14:14:00 IM No Longer Active [place] 07/20/2012 [facility] NovoLog FlexPen 6 unit, 0.06 mL, Route: SUB-Q, Drug form: SOLN, Sliding Scale, PRN Blood Glucose Results, Start date: 07/20/12 14:15:00, Duration: 30 day, Stop date: 08/19/12 14:14:00 SUB-Q No Longer Active [place] 07/20/2012 [facility] Tums 1,000 mg, 2 tab, Route: CHEW, Drug form: CHEWTAB, TID, PRN Indigestion, Start date: 07/19/12 20:27:00, Duration: 30 day, Stop date: 08/18/12 20:26:00 CHEW No Longer Active [facility] 07/20/2012 [facility] calcium carbonate 500 mg (200 mg elemental calcium) oral tablet 1,000 mg, 2 tab, Route: CHEW, Drug form: TAB, TID, Dosing Weight 62.7, kg, PRN Indigestion, Start date: 07/19/12 18:23:00, Stop date: 08/18/12 18:22:00 CHEW No Longer Active [facility] 07/19/2012 [facility] Protonix 40 mg, Route: IVP, Drug form: INJ, ONCE, Dosing Weight 62.7, kg, Start date: 07/19/12 18:22:00, Stop date: 07/19/12 18:22:00 IVP No Longer Active [facility] 07/19/2012 [facility] morphine Sulfate 3 mg, 1.5 mL, Route: IVP, Drug form: INJ, Q4H, Dosing Weight 62.7, kg, PRN Pain Score 4-6, Start date: 07/19/12 14:15:00, Duration: 3 day, Stop date: 07/22/12 14:14:00 IVP No Longer Active [facility] 07/19/2012 [facility] Restoril 15 mg, 1 cap, Route: PO, Drug form: CAP, Bedtime, PRN Sleep, Start date: 07/18/12 9:56:00, Duration: 30 day, Stop date: 08/17/12 9:55:00 PO No Longer Active [facility] 07/18/2012 [facility] Ambien 5 mg, Route: PO, Bedtime, Dosing Weight 62.7, kg, PRN Insomnia, Start date: 07/18/12 9:49:00, Duration: 30 day, Stop date: 08/17/12 9:48:00 PO No Longer Active [facility] 07/18/2012 [facility] hydrochlorothiazide 25 mg oral tablet 12.5 mg, 0.5 tab, Route: PO, Drug form: TAB, Daily, Start date: 07/18/12 9:00:00, Duration: 30 day, Stop date: 08/16/12 9:00:00 PO No Longer Active [place] 07/18/2012 [facility] Cozaar 50 mg, 1 tab, Route: PO, Drug form: TAB, Daily, Start date: 07/18/12 9:00:00, Duration: 30 day, Stop date: 08/16/12 9:00:00 PO No Longer Active [place] 07/18/2012 [facility] Detrol LA 4 mg, 1 cap, Route: PO, Drug form: CAP, Daily, Dosing Weight 62.727, kg, Start date: 07/18/12 9:00:00, Duration: 30 day, Stop date: 08/16/12 9:00:00 PO No Longer Active [place] 07/18/2012 [facility] isosorbide mononitrate 30 mg, 1 tab, Route: PO, Drug form: ERTAB, Daily, Dosing Weight 62.727, kg, Start date: 07/18/12 9:00:00, Duration: 30 day, Stop date: 08/16/12 9:00:00 PO No Longer Active [place] 07/18/2012 [facility] hydrochlorothiazide-losartan 12.5 mg-50 mg oral tablet 1 tab, Route: PO, Drug Form: TAB, Dosing Weight 62.727, kg, Daily, Start date: 07/18/12 9:00:00, Duration: 30 day, Stop date: 08/16/12 9:00:00 PO No Longer Active [place] 07/18/2012 [facility] calcium-vitamin D 500 mg-200 intl units oral tablet 1 tab, Route: PO, Drug Form: TAB, Dosing Weight 62.727, kg, BID, Start date: 07/18/12 9:00:00, Duration: 30 day, Stop date: 08/16/12 17:00:00 PO No Longer Active [place] 07/18/2012 [facility] levothyroxine 50 microgram, 1 tab, Route: PO, Drug form: TAB, Q630AM, Dosing Weight 62.727, kg, Start date: 07/18/12 6:30:00, Duration: 30 day, Stop date: 08/16/12 6:30:00 PO No Longer Active [place] 07/18/2012 [facility] levofloxacin 500 mg, 2 tab, Route: PO, Drug form: TAB, [id number], Dosing Weight 62.727, kg, Start date: 07/17/12 22:00:00, Duration: 2 day, Stop date: 07/18/12 9:00:00 PO No Longer Active [place] 07/18/2012 [facility] Vitamin B12 1,000 microgram, 1 mL, Route: IM, Drug form: INJ, Q30D, Dosing Weight 62.727, kg, Start date: 07/17/12 22:00:00, Duration: 30 day, Stop date: 08/16/12 9:00:00 IM No Longer Active [place] 07/18/2012 [facility] aspirin 81 mg tablet, enteric coated 81 mg, 1 tab, Route: PO, Drug form: ECTAB, Daily, Dosing Weight 62.727, kg, Start date: 07/17/12 21:41:00, Duration: 30 day, Stop date: 08/16/12 9:00:00 PO No Longer Active [place] 07/18/2012 [facility] naproxen 500 mg, 1 tab, Route: PO, Drug form: TAB, BID, Dosing Weight 62.727, kg, PRN For Pain, Start date: 07/17/12 21:34:00, Duration: 30 day, Stop date: 08/16/12 21:33:00 PO No Longer Active [place] 07/18/2012 [facility] Zofran 4 mg, 2 mL, Route: IV, Drug form: INJ, Q6H, Dosing Weight 62.727, kg, PRN Nausea, Start date: 07/17/12 21:25:00, Duration: 30 day, Stop date: 08/16/12 21:24:00 IV No Longer Active [place] 07/18/2012 [facility] tuberculin purified protein derivative 5 unit, 0.1 mL, Route: INTRADERM, Drug form: INJ, ONCE, Dosing Weight 62.727, kg, Start date: 07/17/12 21:22:00, Stop date: 07/17/12 21:22:00LOT#: EXP: (Same As: Aplisol, Tubersol) Inactive [place] 07/18/2012 [facility] naproxen 500 mg oral tablet 500 mg, 1 tab, PO, BID, PRN, as needed for pain, Substitution Allowed PO Active [place] 07/18/2012 [facility] levofloxacin 500 mg oral tablet 500 mg, 1 tab, PO, Q24H, Substitution Allowed PO No Longer Active [place] 07/18/2012 [facility] potassium gluconate 595 mg oral tablet 595 mg, 1 tab, PO, Daily, Substitution Allowed PO No Longer Active 07/18/2012 [facility] Vitamin B12 1000 mcg/mL injectable solution 1,000 microgram, 1 mL, IM, Q30D, Substitution Allowed IM Active [place] 07/18/2012 [facility] hydrochlorothiazide-losartan 12.5 mg-50 mg oral tablet 1 tab, PO, Daily, Substitution Allowed, Maintenance PO Active [place] 07/18/2012 [facility] levothyroxine 50 mcg (0.05 mg) oral tablet 50 microgram, 1 tab, PO, Daily, Substitution Allowed PO Active [place] 07/18/2012 [facility] isosorbide mononitrate 30 mg oral tablet, extended release 30 mg, 1 tab, PO, Daily, Substitution Allowed PO Active [place] 07/18/2012 [facility] Detrol LA 4 mg oral capsule, extended release 4 mg, 1 cap, PO, Daily, Substitution Allowed PO Active [place] 07/18/2012 [facility] Caltrate 600 + D oral tablet 1 tab, PO, BID, Substitution Allowed, Maintenance PO Active [place] 07/18/2012 [facility] aspirin 81 mg tablet, enteric coated 81 mg, 1 tab, PO, Daily, Substitution Allowed PO Active [place] 07/18/2012 [facility] Allergies, Adverse Reactions, Alerts Substance Category Reaction Severity Reaction type Status Date Reported Comments Source meperidine<sup>1</sup> Assertion Drug allergy Active 10/04/2007 1Data migrated from [employer] on 06/05/14. Originally documented as DEMEROL. [facility] codeine<sup>1</sup> Assertion Drug allergy Active 10/04/2007 Data migrated from [employer] on 04/08/15. Originally documented as CODEINE. [facility] meperidine<sup>2</sup> Assertion Drug allergy Active 10/04/2007 Data migrated from [employer] on 06/05/14. Originally documented as DEMEROL. [facility] codeine Assertion Propensity to adverse reactions to drug Active [facility] Demerol Assertion Drug allergy Active [facility] Immunizations Immunization Date Given Site Status Last Updated Comments Source Hx influenza vaccine-unspecified 10/18/2013 Left Arm completed Dirk [facility] tuberculin purified protein derivative 07/18/2012 completed Nikolai [facility] tuberculin purified protein derivative 07/18/2012 Left mid forearm completed Nikolai [facility] Results Order Name Results Value Reference Range Date Interpretation Comments Source HEMATOLOGY PT 20.6 12.0 - 14.7 08/06/2014 [facility] HEMATOLOGY INR 1.73 0.85 - 1.17 08/06/2014 <sup>8</sup>Interpretive Data: RECOMMENDED RANGES FOR PROTIME INR:
2.0-3.0 for most medical and surgical thromboembolic states.
2.5-3.5 for artificial heart valves and recurrent embolism.

INR SHOULD BE USED ONLY FOR PATIENTS ON STABLE ANTICOAGULANT THERAPY. [facility] BACTERIAL - SEROLOGY MRSA by PCR Negative 10 (08/05/14 6:55 PM) 08/05/2014 <sup>10</sup>Interpretive Data: Interpretive Data: The [employer] Light[employer]ycler MRSA assay is a qualitative test for the direct detection of nasal colonization with methicillin-resistant Staphyloco ccus aureus (MRSA) to aid in the prevention and control of MRSA infections in healthcare settings. A positive result does not indicate an infection or require treatment. A negative result does not exclude colonization or infection.

The polymerase chain reaction (PCR) assay detects a proprietary sequence indicative of the integration of the SCCmec cassette into the Staphylococcus aureus chromosome, indicating the presence of MRSA DNA. The assay utilizes FDA cleared IVD reagents. Performance characteristics have been verified by the [facility] within the [facility]. The [facility] is authorized under the Clinical Laboratory Improvement Amendment of 1988 (CLIA-88) to perform high complexity testing. [facility] CHEM PANEL Magnesium Lvl 1.8 1.8 - 2.4 08/05/2014 [facility] CHEM PANEL Total Protein 4.8 6.4 - 8.4 08/05/2014 [facility] CHEM PANEL B/C Ratio 21 6 - 25 08/05/2014 [facility] CHEM PANEL AGAP 14.0 10.0 - 20.0 08/05/2014 [facility] CHEM PANEL CO2 16 24 - 32 08/05/2014 [facility] CHEM PANEL BUN 30 7 - 22 08/05/2014 [facility] CHEM PANEL Bili Total 1.3 0.2 - 1.3 08/05/2014 [facility] CHEM PANEL Albumin Lvl 2.1 3.5 - 5.0 08/05/2014 [facility] CHEM PANEL Globulin 2.7 2.0 - 4.0 08/05/2014 [facility] CHEM PANEL Glucose Lvl 125 70 - 99 08/05/2014 <sup>5</sup>Interpretive Data: Adult reference range values reflect the clinical guidelines
of the [place] [employer]. [facility] CHEM PANEL Alk Phos 131 39 - 136 08/05/2014 [facility] CHEM PANEL ALT 59 0 - 65 08/05/2014 [facility] CHEM PANEL A/G Ratio 0.8 0.7 - 1.6 08/05/2014 [facility] CHEM PANEL AST 41 0 - 37 08/05/2014 [facility] CHEM PANEL eGFR 37 08/05/2014 <sup>2</sup>Result Comment: The eGFR is calculated using the CKD-EPI formula. In most young, healthy individuals the eGFR will be >90 mL/min/1.73m2. The eGFR declines with age. An eGFR of 60-89 may be normal in some populations, particularly the elderly, for whom the CKD-EPI formula has not been extensively validated. Use of the eGFR is not recommended in the following populations:& lt;br/>
Individuals with unstable creatinine concentrations, including patients and those with serious co-morbid conditions.

Patients with extremes in muscle mass or diet.

The data above are obtained from the National Kidney Disease Education Program (NKDEP) which additionally recommends that when the eGFR is used in patients with extremes of body mass index for purposes of drug dosing, the eGFR should be multiplied by the estimated BMI. [facility] CHEM PANEL Creatinine Lvl 1.4 0.5 - 1.4 08/05/2014 [facility] CHEM PANEL Chloride Lvl 108 95 - 109 08/05/2014 [facility] CHEM PANEL Calcium Lvl 8.2 8.5 - 10.5 08/05/2014 [facility] CHEM PANEL Potassium Lvl 4.0 3.5 - 5.1 08/05/2014 [facility] CHEM PANEL Sodium Lvl 134 135 - 145 08/05/2014 [facility] HEMATOLOGY Monocytes 17.8 2.0 - 12.0 08/05/2014 [facility] HEMATOLOGY Basophils 1.3 0.0 - 1.0 08/05/2014 [facility] Eosinophils 1.6 0.0 - 4.0 08/05/2014 [facility] Macrocyte 1+ *ABN* (08/05/14 6:03 PM) None Seen 08/05/2014 [facility] Lymphocytes 17.6 20.0 - 40.0 08/05/2014 [facility] Segs 61.7 45.0 - 75.0 08/05/2014 [facility] Monocytes # 1.4 0.0 - 0.8 08/05/2014 [facility] Basophils # 0.1 0.0 - 0.2 08/05/2014 [facility] Eosinophils # 0.1 0.0 - 0.5 08/05/2014 [facility] Segs-Bands # 4.9 1.5 - 8.1 08/05/2014 [facility] Lymphocytes # 1.4 1.0 - 5.5 08/05/2014 [facility] RDW 27.6 11.5 - 14.5 08/05/2014 [facility] Platelet 98 133 - 450 08/05/2014 [facility] MCH 33.6 27.0 - 31.0 08/05/2014 [facility] MCHC 33.4 32.0 - 36.0 08/05/2014 [facility] MPV 9.5 7.4 - 10.4 08/05/2014 [facility] Hgb 10.4 12.0 - 16.0 08/05/2014 [facility] RBC 3.10 4.20 - 5.40 08/05/2014 [facility] Hct 31.1 36.0 - 48.0 08/05/2014 [facility] MCV 100.6 80.0 - 98.0 08/05/2014 [facility] WBC 7.9 3.7 - 10.4 08/05/2014 [facility] CHEM PANEL Magnesium Lvl 2.0 1.8 - 2.4 08/05/2014 [facility] CHEM PANEL eGFR 30 08/05/2014 <sup>3</sup>Result Comment: The eGFR is calculated using the CKD-EPI formula. In most young, healthy individuals the eGFR will be >90 mL/min/1.73m2. The eGFR declines with age. An eGFR of 60-89 may be normal in some populations, particularly the elderly, for whom the CKD-EPI formula has not been extensively validated. Use of the eGFR is not recommended in the following populations:& lt;br/>
Individuals with unstable creatinine concentrations, including patients and those with serious co-morbid conditions.

Patients with extremes in muscle mass or diet.

The data above are obtained from the National Kidney Disease Education Program (NKDEP) which additionally recommends that when the eGFR is used in patients with extremes of body mass index for purposes of drug dosing, the eGFR should be multiplied by the estimated BMI. [facility] CHEM PANEL Globulin 2.2 2.0 - 4.0 08/05/2014 [facility] CHEM PANEL Total Protein 4.3 6.4 - 8.4 08/05/2014 [facility] CHEM PANEL A/G Ratio 1.0 0.7 - 1.6 08/05/2014 [facility] CHEM PANEL ALT 59 0 - 65 08/05/2014 [facility] CHEM PANEL Albumin Lvl 2.1 3.5 - 5.0 08/05/2014 [facility] CHEM PANEL B/C Ratio 24 6 - 25 08/05/2014 [facility] CHEM PANEL AGAP 11.8 10.0 - 20.0 08/05/2014 [facility] CHEM PANEL Calcium Lvl 7.9 8.5 - 10.5 08/05/2014 [facility] CHEM PANEL Creatinine Lvl 1.7 0.5 - 1.4 08/05/2014 [facility] CHEM PANEL CO2 19 24 - 32 08/05/2014 [facility] CHEM PANEL Glucose Lvl 81 70 - 99 08/05/2014 <sup>6</sup>Interpretive Data: Adult reference range values reflect the clinical guidelines
of the [place] [employer]. [facility] CHEM PANEL BUN 41 7 - 22 08/05/2014 [facility] CHEM PANEL Bili Total 1.4 0.2 - 1.3 08/05/2014 [facility] CHEM PANEL AST 46 0 - 37 08/05/2014 [facility] CHEM PANEL Alk Phos 140 39 - 136 08/05/2014 [facility] CHEM PANEL Potassium Lvl 3.8 3.5 - 5.1 08/05/2014 [facility] CHEM PANEL Sodium Lvl 134 135 - 145 08/05/2014 [facility] CHEM PANEL Chloride Lvl 107 95 - 109 08/05/2014 [facility] CHEM PANEL Phosphorus 2.3 2.5 - 4.5 08/05/2014 [facility] Monocytes 15.3 2.0 - 12.0 08/05/2014 [facility] Lymphocytes 14.5 20.0 - 40.0 08/05/2014 [facility] Segs 67.7 45.0 - 75.0 08/05/2014 [facility] Basophils # 0.1 0.0 - 0.2 08/05/2014 [facility] Eosinophils 1.4 0.0 - 4.0 08/05/2014 [facility] Basophils 1.1 0.0 - 1.0 08/05/2014 [facility] Monocytes # 1.4 0.0 - 0.8 08/05/2014 [facility] Macrocyte 1+ *ABN* (08/05/14 4:35 AM) None Seen 08/05/2014 [facility] Eosinophils # 0.1 0.0 - 0.5 08/05/2014 [facility] Segs-Bands # 6.3 1.5 - 8.1 08/05/2014 [facility] Lymphocytes # 1.4 1.0 - 5.5 08/05/2014 [facility] RDW 27.2 11.5 - 14.5 08/05/2014 [facility] MCHC 33.6 32.0 - 36.0 08/05/2014 [facility] MPV 9.8 7.4 - 10.4 08/05/2014 [facility] Platelet 109 133 - 450 08/05/2014 [facility] WBC 9.3 3.7 - 10.4 08/05/2014 [facility] MCH 33.9 27.0 - 31.0 08/05/2014 [facility] Hgb 10.4 12.0 - 16.0 08/05/2014 [facility] MCV 100.9 80.0 - 98.0 08/05/2014 [facility] RBC 3.07 4.20 - 5.40 08/05/2014 [facility] Hct 30.9 36.0 - 48.0 08/05/2014 [facility] CHEM PANEL eGFR 22 08/04/2014 <sup>4</sup>Result Comment: The eGFR is calculated using the CKD-EPI formula. In most young, healthy individuals the eGFR will be >90 mL/min/1.73m2. The eGFR declines with age. An eGFR of 60-89 may be normal in some populations, particularly the elderly, for whom the CKD-EPI formula has not been extensively validated. Use of the eGFR is not recommended in the following populations:& lt;br/>
Individuals with unstable creatinine concentrations, including patients and those with serious co-morbid conditions.

Patients with extremes in muscle mass or diet.

The data above are obtained from the National Kidney Disease Education Program (NKDEP) which additionally recommends that when the eGFR is used in patients with extremes of body mass index for purposes of drug dosing, the eGFR should be multiplied by the estimated BMI. [facility] CHEM PANEL Creatinine Lvl 2.2 0.5 - 1.4 08/04/2014 [facility] HEMATOLOGY Platelet 118 133 - 450 08/04/2014 [facility] HEMATOLOGY PTT 39.4 22.9 - 35.8 08/04/2014 <sup>9</sup>Interpretive Data: Heparin Therapeutic Range: 57 - 92 Seconds [facility] CHEM PANEL Magnesium Lvl 2.3 1.8 - 2.4 08/04/2014 [facility] CHEM PANEL Phosphorus 3.5 2.5 - 4.5 08/04/2014 [facility] ELECTROLYTES Chloride Lvl 99 95 - 109 08/04/2014 [facility] ELECTROLYTES Potassium Lvl 4.3 3.5 - 5.1 08/04/2014 [facility] ELECTROLYTES Sodium Lvl 128 135 - 145 08/04/2014 [facility] ELECTROLYTES BUN 60 7 - 22 08/04/2014 [facility] ELECTROLYTES Glucose Lvl 81 70 - 99 08/04/2014 <sup>7</sup>Interpretive Data: Adult reference range values reflect the clinical guidelines
of the [place] [employer]. [facility] ELECTROLYTES Bili Total 1.6 0.2 - 1.3 08/04/2014 [facility] ELECTROLYTES Alk Phos 141 39 - 136 08/04/2014 [facility] ELECTROLYTES AST 51 0 - 37 08/04/2014 [facility] ELECTROLYTES ALT 64 0 - 65 08/04/2014 [facility] ELECTROLYTES CO2 20 24 - 32 08/04/2014 [facility] ELECTROLYTES Albumin Lvl 2.3 3.5 - 5.0 08/04/2014 [facility] ELECTROLYTES Calcium Lvl 8.0 8.5 - 10.5 08/04/2014 [facility] ELECTROLYTES Total Protein 5.2 6.4 - 8.4 08/04/2014 [facility] ELECTROLYTES A/G Ratio 0.8 0.7 - 1.6 08/04/2014 [facility] ELECTROLYTES Globulin 2.9 2.0 - 4.0 08/04/2014 [facility] ELECTROLYTES B/C Ratio 25 6 - 25 08/04/2014 [facility] ELECTROLYTES AGAP 13.3 10.0 - 20.0 08/04/2014 [facility] MPV 11.3 7.4 - 10.4 08/04/2014 [facility] RDW 29.9 11.5 - 14.5 08/04/2014 [facility] MCHC 32.0 32.0 - 36.0 08/04/2014 [facility] MCH 36.5 27.0 - 31.0 08/04/2014 [facility] MCV 114.0 80.0 - 98.0 08/04/2014 [facility] RBC 2.11 4.20 - 5.40 08/04/2014 [facility] Hgb 7.7 12.0 - 16.0 08/04/2014 [facility] Hct 24.1 36.0 - 48.0 08/04/2014 [facility] WBC 12.3 3.7 - 10.4 08/04/2014 [facility] Macrocyte 3+ *NA* (08/04/14 7:11 AM) None Seen 08/04/2014 [facility] Basophils # 0.2 0.0 - 0.2 08/04/2014 [facility] Lymphocytes # 3.0 1.0 - 5.5 08/04/2014 [facility] Monocytes # 1.1 0.0 - 0.8 08/04/2014 [facility] Eosinophils # 0.1 0.0 - 0.5 08/04/2014 [facility] Basophils 2.0 0.0 - 1.0 08/04/2014 [facility] Segs-Bands # 7.9 1.5 - 8.1 08/04/2014 [facility] Segs 64.1 45.0 - 75.0 08/04/2014 [facility] Eosinophils 1.2 0.0 - 4.0 08/04/2014 [facility] Monocytes 8.6 2.0 - 12.0 08/04/2014 [facility] Lymphocytes 24.1 20.0 - 40.0 08/04/2014 [facility] Plt Morph Normal (08/04/14 7:11 AM) 08/04/2014 [facility] BLOOD BANK RESULTS RBC product Product available 1 (08/04/14 1:25 AM) 08/04/2014 <sup>1</sup>Result Comment: 08/04/2014 05:24 [id number]
called franco Sanon at08/04/2014 05:24 [facility] ANEMIA STUDY Ferritin Lvl 528 5 - 204 08/04/2014 [facility] ANEMIA STUDY Transferrin 242 212 - 360 08/04/2014 [facility] ANEMIA STUDY Iron 52 30 - 160 08/04/2014 [facility] ANEMIA STUDY TIBC 312 228 - 428 08/04/2014 [facility] ANEMIA STUDY UIBC 260 110 - 370 08/04/2014 [facility] ANEMIA STUDY % [place] 17 12 - 57 08/04/2014 [facility] BLOOD BANK RESULTS Antibody Scrn Negative (08/04/14 12:32 AM) 08/04/2014 [facility] BLOOD BANK RESULTS ABO/Rh A POS 08/04/2014 [facility] CARDIAC ENZYMES Total CK 34 12 - 191 08/04/2014 [facility] CARDIAC ENZYMES CK MB 1.2 0.5 - 3.6 08/04/2014 [facility] CARDIAC ENZYMES Troponin-I <0.02 0.00 - 0.40 08/04/2014 [facility] CARDIAC ENZYMES CK MB Index 3.5 0.0 - 2.5 08/04/2014 [facility] CHEM PANEL Lipase Lvl 510 73 - 393 08/04/2014 [facility] CHEM PANEL Phosphorus 3.8 2.5 - 4.5 08/04/2014 [facility] HEMATOLOGY Polychrom Moderate *ABN* (08/04/14 12:32 AM) None Seen 08/04/2014 [facility] HEMATOLOGY Bands 7.0 0.0 - 11.0 08/04/2014 [facility] HEMATOLOGY NRBC 21 08/04/2014 [facility] HEMATOLOGY Atypical Lymphs 0.0 <=0.0 % 08/04/2014 [facility] HEMATOLOGY Plt Morph Normal (08/04/14 12:32 AM) 08/04/2014 [facility] URINE AND STOOL UA Ketones Negative mg/dL Negative mg/dL 08/04/2014 [facility] URINE AND STOOL UA Blood Negative (08/03/14 11:09 PM) Negative 08/04/2014 [facility] URINE AND STOOL UA Bili Negative *NA* (08/03/14 11:09 PM) Negative 08/04/2014 [facility] URINE AND STOOL UA Nitrite Negative (08/03/14 11:09 PM) Negative 08/04/2014 [facility] URINE AND STOOL UA Urobilinogen 2.0 0.1 - 1.0 08/04/2014 [facility] URINE AND STOOL UA Leuk Est Moderate *ABN* (08/03/14 11:09 PM) Negative 08/04/2014 [facility] URINE AND STOOL UA Sq Epi Moderate /LPF Few /LPF 08/04/2014 [facility] URINE AND STOOL UA WBC 2 0 - 5 08/04/2014 [facility] URINE AND STOOL UA RBC 2 0 - 2 08/04/2014 [facility] URINE AND STOOL UA Bacteria Occasional /HPF None Seen /HPF 08/04/2014 [facility] URINE AND STOOL UA Mucus Few /LPF None Seen /LPF 08/04/2014 [facility] URINE AND STOOL UA Color Yellow *NA* (08/03/14 11:09 PM) Yellow 08/04/2014 [facility] URINE AND STOOL UA Turbidity Marked *ABN* (08/03/14 11:09 PM) Clear 08/04/2014 [facility] URINE AND STOOL UA Spec Grav 1.009 <=1.030 08/04/2014 [facility] URINE AND STOOL UA pH 5.0 5.0 - 8.0 08/04/2014 [facility] URINE AND STOOL UA Protein Negative mg/dL Negative mg/dL 08/04/2014 [facility] URINE AND STOOL UA Glucose Negative mg/dL Negative mg/dL 08/04/2014 [facility] URINE AND STOOL Occult Bld Stl Negative (08/03/14 11:09 PM) Negative 08/04/2014 [facility] CHEM PANEL Bili Direct 9.6 0.0 - 0.3 01/15/2014 [facility] CHEM PANEL Globulin 3.2 2.0 - 4.0 01/15/2014 [facility] CHEM PANEL A/G Ratio 0.7 0.7 - 1.6 01/15/2014 [facility] CHEM PANEL Bili Indirect 2.5 0.0 - 1.0 01/15/2014 [facility] CHEM PANEL Albumin Lvl 2.1 3.5 - 5.0 01/15/2014 [facility] CHEM PANEL Total Protein 5.3 6.4 - 8.4 01/15/2014 [facility] CHEM PANEL ALT 398 0 - 65 01/15/2014 [facility] CHEM PANEL Alk Phos 201 39 - 136 01/15/2014 [facility] CHEM PANEL Bili Total 12.1 0.2 - 1.3 01/15/2014 [facility] CHEM PANEL AST 143 0 - 37 01/15/2014 [facility] CHEM PANEL Globulin 3.5 2.0 - 4.0 01/14/2014 [facility] CHEM PANEL Bili Indirect 2.7 0.0 - 1.0 01/14/2014 [facility] CHEM PANEL A/G Ratio 0.6 0.7 - 1.6 01/14/2014 [facility] CHEM PANEL Bili Total 12.6 0.2 - 1.3 01/14/2014 [facility] CHEM PANEL Alk Phos 199 39 - 136 01/14/2014 [facility] CHEM PANEL AST 186 0 - 37 01/14/2014 [facility] CHEM PANEL Bili Direct 9.9 0.0 - 0.3 01/14/2014 [facility] CHEM PANEL Albumin Lvl 2.1 3.5 - 5.0 01/14/2014 [facility] CHEM PANEL ALT 460 0 - 65 01/14/2014 [facility] CHEM PANEL Total Protein 5.6 6.4 - 8.4 01/14/2014 [facility] ELECTROLYTES Chloride Lvl 111 95 - 109 01/13/2014 [facility] ELECTROLYTES Potassium Lvl 3.9 3.5 - 5.1 01/13/2014 [facility] ELECTROLYTES Sodium Lvl 141 135 - 145 01/13/2014 [facility] ELECTROLYTES B/C Ratio 28 6 - 25 01/13/2014 [facility] ELECTROLYTES Globulin 3.1 2.0 - 4.0 01/13/2014 [facility] ELECTROLYTES A/G Ratio 0.7 0.7 - 1.6 01/13/2014 [facility] ELECTROLYTES eGFR 73 01/13/2014 <sup>1</sup>Result Comment: The eGFR is calculated using the CKD-EPI formula. In most young, healthy individuals the eGFR will be >90 mL/min/1.73m2. The eGFR declines with age. An eGFR of 60-89 may be normal in some populations, particularly the elderly, for whom the CKD-EPI formula has not been extensively validated. Use of the eGFR is not recommended in the following populations:& lt;br/>
Individuals with unstable creatinine concentrations, including patients and those with serious co-morbid conditions.

Patients with extremes in muscle mass or diet.

The data above are obtained from the National Kidney Disease Education Program (NKDEP) which additionally recommends that when the eGFR is used in patients with extremes of body mass index for purposes of drug dosing, the eGFR should be multiplied by the estimated BMI. [facility] ELECTROLYTES Creatinine Lvl 0.8 0.5 - 1.4 01/13/2014 [facility] ELECTROLYTES CO2 20 24 - 32 01/13/2014 [facility] ELECTROLYTES Glucose Lvl 184 70 - 99 01/13/2014 <sup>4</sup>Interpretive Data: Adult reference range values reflect the clinical guidelines
of the [place] [employer]. [facility] ELECTROLYTES BUN 22 7 - 22 01/13/2014 [facility] ELECTROLYTES Bili Total 13.3 0.2 - 1.3 01/13/2014 [facility] ELECTROLYTES AGAP 13.9 10.0 - 20.0 01/13/2014 [facility] ELECTROLYTES Total Protein 5.2 6.4 - 8.4 01/13/2014 [facility] ELECTROLYTES Albumin Lvl 2.1 3.5 - 5.0 01/13/2014 [facility] ELECTROLYTES ALT 540 0 - 65 01/13/2014 [facility] ELECTROLYTES AST 246 0 - 37 01/13/2014 [facility] ELECTROLYTES Alk Phos 210 39 - 136 01/13/2014 [facility] ELECTROLYTES Calcium Lvl 7.2 8.5 - 10.5 01/13/2014 [facility] CHEM PANEL eGFR 73 01/12/2014 <sup>2</sup>Result Comment: The eGFR is calculated using the CKD-EPI formula. In most young, healthy individuals the eGFR will be >90 mL/min/1.73m2. The eGFR declines with age. An eGFR of 60-89 may be normal in some populations, particularly the elderly, for whom the CKD-EPI formula has not been extensively validated. Use of the eGFR is not recommended in the following populations:& lt;br/>
Individuals with unstable creatinine concentrations, including patients and those with serious co-morbid conditions.

Patients with extremes in muscle mass or diet.

The data above are obtained from the National Kidney Disease Education Program (NKDEP) which additionally recommends that when the eGFR is used in patients with extremes of body mass index for purposes of drug dosing, the eGFR should be multiplied by the estimated BMI. [facility] CHEM PANEL Calcium Lvl 7.5 8.5 - 10.5 01/12/2014 [facility] CHEM PANEL Potassium Lvl 4.0 3.5 - 5.1 01/12/2014 [facility] CHEM PANEL Sodium Lvl 137 135 - 145 01/12/2014 [facility] CHEM PANEL Chloride Lvl 111 95 - 109 01/12/2014 [facility] CHEM PANEL Creatinine Lvl 0.8 0.5 - 1.4 01/12/2014 [facility] CHEM PANEL B/C Ratio 28 6 - 25 01/12/2014 [facility] CHEM PANEL AGAP 12.0 10.0 - 20.0 01/12/2014 [facility] CHEM PANEL CO2 18 24 - 32 01/12/2014 [facility] CHEM PANEL BUN 22 7 - 22 01/12/2014 [facility] CHEM PANEL Glucose Lvl 189 70 - 99 01/12/2014 <sup>5</sup>Interpretive Data: Adult reference range values reflect the clinical guidelines
of the [place] [employer]. [facility] CHEM PANEL Creatinine Lvl 0.9 0.5 - 1.4 01/11/2014 [facility] CHEM PANEL eGFR 64 01/11/2014 <sup>3</sup>Result Comment: The eGFR is calculated using the CKD-EPI formula. In most young, healthy individuals the eGFR will be >90 mL/min/1.73m2. The eGFR declines with age. An eGFR of 60-89 may be normal in some populations, particularly the elderly, for whom the CKD-EPI formula has not been extensively validated. Use of the eGFR is not recommended in the following populations:& lt;br/>
Individuals with unstable creatinine concentrations, including patients and those with serious co-morbid conditions.

Patients with extremes in muscle mass or diet.

The data above are obtained from the National Kidney Disease Education Program (NKDEP) which additionally recommends that when the eGFR is used in patients with extremes of body mass index for purposes of drug dosing, the eGFR should be multiplied by the estimated BMI. [facility] HEMATOLOGY PTT 36.3 22.9 - 35.8 01/11/2014 <sup>7</sup>Interpretive Data: Heparin Therapeutic Range: 57 - 92 Seconds [facility] HEMATOLOGY Platelet 138 133 - 450 01/11/2014 [facility] CHEM PANEL Calcium Lvl 8.1 8.5 - 10.5 01/11/2014 [facility] CHEM PANEL B/C Ratio 16 6 - 25 01/11/2014 [facility] CHEM PANEL BUN 13 7 - 22 01/11/2014 [facility] CHEM PANEL Glucose Lvl 261 70 - 99 01/11/2014 <sup>6</sup>Interpretive Data: Adult reference range values reflect the clinical guidelines
of the [place] [employer]. [facility] CHEM PANEL Chloride Lvl 109 95 - 109 01/11/2014 [facility] CHEM PANEL Potassium Lvl 4.2 3.5 - 5.1 01/11/2014 [facility] CHEM PANEL Sodium Lvl 134 135 - 145 01/11/2014 [facility] CHEM PANEL CO2 15 24 - 32 01/11/2014 [facility] ELECTROLYTES AGAP 13.0 10.0 - 20.0 01/10/2014 [facility] HEMATOLOGY Segs-Bands # 5.1 1.5 - 8.1 01/10/2014 [facility] HEMATOLOGY Lymphocytes # 2.5 1.0 - 5.5 01/10/2014 [facility] HEMATOLOGY Monocytes # 1.7 0.0 - 0.8 01/10/2014 [facility] HEMATOLOGY Eosinophils # 0.1 0.0 - 0.5 01/10/2014 [facility] HEMATOLOGY Basophils # 0.1 0.0 - 0.2 01/10/2014 [facility] HEMATOLOGY Segs 53.3 45.0 - 75.0 01/10/2014 [facility] HEMATOLOGY Lymphocytes 26.7 20.0 - 40.0 01/10/2014 [facility] HEMATOLOGY Eosinophils 0.8 0.0 - 4.0 01/10/2014 [facility] HEMATOLOGY Monocytes 17.9 2.0 - 12.0 01/10/2014 [facility] HEMATOLOGY Basophils 1.3 0.0 - 1.0 01/10/2014 [facility] HEMATOLOGY WBC 9.5 3.7 - 10.4 01/10/2014 [facility] HEMATOLOGY Hct 34.0 36.0 - 48.0 01/10/2014 [facility] HEMATOLOGY Hgb 11.5 12.0 - 16.0 01/10/2014 [facility] HEMATOLOGY RBC 3.63 4.20 - 5.40 01/10/2014 [facility] HEMATOLOGY MCV 93.8 80.0 - 98.0 01/10/2014 [facility] HEMATOLOGY MCH 31.6 27.0 - 31.0 01/10/2014 [facility] HEMATOLOGY MPV 10.1 7.4 - 10.4 01/10/2014 [facility] HEMATOLOGY Platelet 153 133 - 450 01/10/2014 [facility] HEMATOLOGY RDW 16.4 11.5 - 14.5 01/10/2014 [facility] HEMATOLOGY MCHC 33.7 32.0 - 36.0 01/10/2014 [facility] TUMOR MARKERS CA 19-9 36.2 0.0 - 35.0 01/10/2014 [facility] BEDSIDE GLUCOSE TESTING Gluc POC Comment 1 Notified LUCY/ 12/14/2012 [facility] BEDSIDE GLUCOSE TESTING Glucose POC 223 70 - 99 12/14/2012 [facility] <sup>1</sup>Interpretive Data: Upper Reportable Limit: 200 mg/dL. [facility] CHEMISTRY Bili Total 3.1 0.2 - 1.3 12/14/2012 [facility] CHEMISTRY ASPARTATE TRANSAMINASE 132 0 - 37 12/14/2012 [facility] CHEMISTRY Bili Direct 2.5 0.0 - 0.3 12/14/2012 [facility] CHEMISTRY Globulin 3.9 2.0 - 4.0 12/14/2012 Normal [facility] CHEMISTRY Alk Phos 203 39 - 136 12/14/2012 [facility] CHEMISTRY ALANINE AMINOTRANSFERASE 560 0 - 65 12/14/2012 [facility] CHEMISTRY Bili Indirect 0.6 0.0 - 1.0 12/14/2012 Normal [facility] CHEMISTRY A/G Ratio 0.6 0.7 - 1.6 12/14/2012 LOW [facility] CHEMISTRY Albumin Lvl 2.3 3.5 - 5.0 12/14/2012 LOW [facility] CHEMISTRY Total Protein 6.2 6.4 - 8.4 12/14/2012 LOW [facility] BEDSIDE GLUCOSE TESTING Glucose POC 214 70 - 99 12/14/2012 [facility] <sup>2</sup>Interpretive Data: Upper Reportable Limit: 200 mg/dL. [facility] BEDSIDE GLUCOSE TESTING Glucose POC 161 70 - 99 12/14/2012 [facility] <sup>3</sup>Interpretive Data: Upper Reportable Limit: 200 mg/dL. [facility] BEDSIDE GLUCOSE TESTING Gluc POC Comment 1 Notified ADONIS 12/13/2012 [facility] BEDSIDE GLUCOSE TESTING Gluc POC Comment 1 Notified ADONIS 12/13/2012 [facility] CHEMISTRY ASPARTATE TRANSAMINASE 251 0 - 37 12/13/2012 [facility] CHEMISTRY Globulin 4.7 2.0 - 4.0 12/13/2012 [facility] CHEMISTRY A/G Ratio 0.6 0.7 - 1.6 12/13/2012 LOW [facility] CHEMISTRY Bili Indirect 0.7 0.0 - 1.0 12/13/2012 Normal [facility] CHEMISTRY Bili Direct 3.8 0.0 - 0.3 12/13/2012 [facility] CHEMISTRY Alk Phos 248 39 - 136 12/13/2012 [facility] CHEMISTRY Bili Total 4.5 0.2 - 1.3 12/13/2012 [facility] CHEMISTRY Albumin Lvl 2.6 3.5 - 5.0 12/13/2012 LOW [facility] CHEMISTRY ALANINE AMINOTRANSFERASE 755 0 - 65 12/13/2012 [facility] CHEMISTRY Total Protein 7.3 6.4 - 8.4 12/13/2012 Normal [facility] CHEMISTRY Sodium Lvl 141 135 - 145 12/13/2012 Normal [facility] CHEMISTRY Chloride Lvl 108 95 - 109 12/13/2012 Normal [facility] CHEMISTRY Potassium Lvl 3.2 3.5 - 5.1 12/13/2012 LOW [facility] CHEMISTRY eGFR 87 12/13/2012 <sup>5</sup>Result Comment: The eGFR is calculated using the CKD-EPI formula. In most young, healthy individuals the eGFR will be >90 mL/min/1.73m2. The eGFR declines with age. An eGFR of 60-89 may be normal in some populations, particularly the elderly, for whom the CKD-EPI formula has not been extensively validated. Use of the eGFR is not recommended in the following populations:& lt;br/>
Individuals with unstable creatinine concentrations, including patients and those with serious co-morbid conditions.

Patients with extremes in muscle mass or diet.

The data above are obtained from the National Kidney Disease Education Program (NKDEP) which additionally recommends that when the eGFR is used in patients with extremes of body mass index for purposes of drug dosing, the eGFR should be multiplied by the estimated BMI. [facility] CHEMISTRY A/G Ratio 0.6 0.7 - 1.6 12/13/2012 LOW [facility] CHEMISTRY ASPARTATE TRANSAMINASE 249 0 - 37 12/13/2012 [facility] CHEMISTRY B/C Ratio 26 6 - 25 12/13/2012 [facility] CHEMISTRY AGAP 11.2 10.0 - 20.0 12/13/2012 Normal [facility] CHEMISTRY Bili Total 4.6 0.2 - 1.3 12/13/2012 [facility] CHEMISTRY ALANINE AMINOTRANSFERASE 748 0 - 65 12/13/2012 [facility] CHEMISTRY Globulin 4.5 2.0 - 4.0 12/13/2012 [facility] CHEMISTRY BUN 18 7 - 22 12/13/2012 Normal [facility] CHEMISTRY Calcium Lvl 8.2 8.5 - 10.5 12/13/2012 LOW [facility] CHEMISTRY Creatinine Lvl 0.7 0.5 - 1.4 12/13/2012 Normal [facility] CHEMISTRY Glucose Lvl 174 70 - 99 12/13/2012 [facility] <sup>8</sup>Interpretive Data: Adult reference range values reflect the clinical guidelines
of the [place] [employer]. [facility] CHEMISTRY Total Protein 7.1 6.4 - 8.4 12/13/2012 Normal [facility] CHEMISTRY Alk Phos 232 39 - 136 12/13/2012 [facility] CHEMISTRY Albumin Lvl 2.6 3.5 - 5.0 12/13/2012 LOW [facility] CHEMISTRY CO2 25 24 - 32 12/13/2012 Normal [facility] REFERENCE LAB RESULTS [facility] REPORT 12/12/2012 <sup>4</sup>Result Comment:

TEST NAME RESULT FLAG UNITS REF RANGE

TPMT Activity 21
UNITS:nmol/hr/mL RBC

Reference Range for TPMT Activity:

>12 Normal
4-12 Heterozygote or low metabolizer
<4 Homozygote Deficient Range

Test Performed at:
[facility]
[id number]
[place] [address] Susana Mejia MD, PhD [facility] CHEMISTRY Phosphorus 2.6 2.5 - 4.5 12/12/2012 Normal [facility] CHEMISTRY eGFR 91 12/12/2012 <sup>6</sup>Result Comment: The eGFR is calculated using the CKD-EPI formula. In most young, healthy individuals the eGFR will be >90 mL/min/1.73m2. The eGFR declines with age. An eGFR of 60-89 may be normal in some populations, particularly the elderly, for whom the CKD-EPI formula has not been extensively validated. Use of the eGFR is not recommended in the following populations:& lt;br/>
Individuals with unstable creatinine concentrations, including patients and those with serious co-morbid conditions.

Patients with extremes in muscle mass or diet.

The data above are obtained from the National Kidney Disease Education Program (NKDEP) which additionally recommends that when the eGFR is used in patients with extremes of body mass index for purposes of drug dosing, the eGFR should be multiplied by the estimated BMI. [facility] CHEMISTRY B/C Ratio 25 6 - 25 12/12/2012 Normal [facility] CHEMISTRY Calcium Lvl 8.4 8.5 - 10.5 12/12/2012 LOW [facility] CHEMISTRY CO2 22 24 - 32 12/12/2012 LOW [facility] CHEMISTRY AGAP 14.0 10.0 - 20.0 12/12/2012 Normal [facility] CHEMISTRY Chloride Lvl 107 95 - 109 12/12/2012 Normal [facility] CHEMISTRY Potassium Lvl 4.0 3.5 - 5.1 12/12/2012 Normal [facility] CHEMISTRY Sodium Lvl 139 135 - 145 12/12/2012 Normal [facility] CHEMISTRY Creatinine Lvl 0.6 0.5 - 1.4 12/12/2012 Normal [facility] CHEMISTRY Glucose Lvl 155 70 - 99 12/12/2012 [place] <sup>9</sup>Interpretive Data: Adult reference range values reflect the clinical guidelines
of the [place] [employer]. [facility] CHEMISTRY BUN 15 7 - 22 12/12/2012 Normal [facility] CHEMISTRY Magnesium Lvl 1.7 1.8 - 2.4 12/12/2012 LOW [facility] CHEMISTRY Bili Direct 6.3 0.0 - 0.3 12/11/2012 HI [facility] CHEMISTRY Bili Indirect 1.3 0.0 - 1.0 12/11/2012 [facility] CHEMISTRY eGFR 87 12/11/2012 <sup>7</sup>Result Comment: The eGFR is calculated using the CKD-EPI formula. In most young, healthy individuals the eGFR will be >90 mL/min/1.73m2. The eGFR declines with age. An eGFR of 60-89 may be normal in some populations, particularly the elderly, for whom the CKD-EPI formula has not been extensively validated. Use of the eGFR is not recommended in the following populations:& lt;br/>
Individuals with unstable creatinine concentrations, including patients and those with serious co-morbid conditions.

Patients with extremes in muscle mass or diet.

The data above are obtained from the National Kidney Disease Education Program (NKDEP) which additionally recommends that when the eGFR is used in patients with extremes of body mass index for purposes of drug dosing, the eGFR should be multiplied by the estimated BMI. [facility] CHEMISTRY Glucose Lvl 171 70 - 99 12/11/2012 [place] <sup>10</sup>Interpretive Data: Adult reference range values reflect the clinical guidelines
of the [place] [employer]. [facility] CHEMISTRY BUN 19 7 - 22 12/11/2012 Normal [facility] CHEMISTRY Creatinine Lvl 0.7 0.5 - 1.4 12/11/2012 Normal [facility] CHEMISTRY CO2 24 24 - 32 12/11/2012 Normal [facility] CHEMISTRY AGAP 13.6 10.0 - 20.0 12/11/2012 Normal [facility] CHEMISTRY Calcium Lvl 8.7 8.5 - 10.5 12/11/2012 Normal [facility] CHEMISTRY B/C Ratio 27 6 - 25 12/11/2012 HI [facility] CHEMISTRY Sodium Lvl 137 135 - 145 12/11/2012 Normal [facility] CHEMISTRY Potassium Lvl 3.6 3.5 - 5.1 12/11/2012 Normal [facility] CHEMISTRY Chloride Lvl 103 95 - 109 12/11/2012 Normal [facility] HEMATOLOGY INR 1.33 0.85 - 1.17 12/11/2012 [place] <sup>11</sup>Interpretive Data: RECOMMENDED RANGES FOR PROTIME INR:
2.0-3.0 for most medical and surgical thromboembolic states.
2.5-3.5 for artificial heart valves and recurrent embolism.

INR SHOULD BE USED ONLY FOR PATIENTS ON STABLE ANTICOAGULANT THERAPY. [facility] HEMATOLOGY aPTT 34.0 22.9 - 35.8 12/11/2012 Normal <sup>12</sup>Interpretive Data: Heparin Therapeutic Range: 57 - 92 Seconds [facility] HEMATOLOGY PROTIME 16.3 12.0 - 14.7 12/11/2012 HI [facility] HEMATOLOGY MPV 9.5 7.4 - 10.4 12/11/2012 Normal [facility] HEMATOLOGY Platelet 237 133 - 450 12/11/2012 Normal [facility] HEMATOLOGY MCV 92.8 81.0 - 99.0 12/11/2012 Normal [facility] HEMATOLOGY MCH 31.1 27.0 - 31.0 12/11/2012 [facility] HEMATOLOGY Hgb 11.1 12.0 - 16.0 12/11/2012 LOW [facility] HEMATOLOGY Hct 33.2 36.0 - 48.0 12/11/2012 LOW [facility] HEMATOLOGY MCHC 33.5 32.0 - 36.0 12/11/2012 Normal [facility] HEMATOLOGY RDW 18.6 11.5 - 14.5 12/11/2012 [facility] HEMATOLOGY RBC X 10x6 3.58 4.20 - 5.40 12/11/2012 LOW [facility] HEMATOLOGY WBC X 10x3 10.8 3.7 - 10.4 12/11/2012 [facility] HEMATOLOGY Large Plt Slight *ABN* (12/11/2012 17:15:00) None Seen 12/11/2012 ABN [facility] HEMATOLOGY Bands 1.0 0.0 - 11.0 12/11/2012 Normal [facility] HEMATOLOGY Segs 63.0 45.0 - 75.0 12/11/2012 Normal [facility] HEMATOLOGY Lymphocytes 25.0 20.0 - 40.0 12/11/2012 Normal [facility] HEMATOLOGY Monocytes 10.0 2.0 - 12.0 12/11/2012 Normal [facility] HEMATOLOGY Eosinophils 1.0 0.0 - 4.0 12/11/2012 Normal [facility] HEMATOLOGY Lymphocytes # 2.7 1.0 - 5.5 12/11/2012 Normal [facility] HEMATOLOGY Monocytes # 1.1 0.0 - 0.8 12/11/2012 [facility] HEMATOLOGY Segs-Bands # 6.9 1.5 - 8.1 12/11/2012 Normal [facility] HEMATOLOGY Eosinophils # 0.1 0.0 - 0.5 12/11/2012 Normal [facility] HEMATOLOGY Hypochrom Slight (12/11/2012 17:15:00) None Seen 12/11/2012 Normal [facility] HEMATOLOGY Target Cell Moderate *ABN* (12/11/2012 17:15:00) None Seen 12/11/2012 ABN [facility] URINALYSIS UA Color Mireya 12/11/2012 [facility] URINALYSIS UA Urobilinogen 2.0 0.1 - 1.0 12/11/2012 [facility] URINALYSIS UA Nitrite Negative (12/11/2012 17:15:00) Negative 12/11/2012 [facility] URINALYSIS UA Leuk Est Moderate *ABN* (12/11/2012 17:15:00) Negative 12/11/2012 ABN [facility] URINALYSIS UA Sq Epi Occasional /LPF Few 12/11/2012 [facility] URINALYSIS UA pH 6.0 5.0 - 8.0 12/11/2012 Normal [facility] URINALYSIS UA Spec Grav 1.006 <=1.030 12/11/2012 Normal [facility] URINALYSIS UA Protein Negative mg/dL Negative 12/11/2012 Normal [facility] URINALYSIS UA Turbidity Clear (12/11/2012 17:15:00) Clear 12/11/2012 Normal [facility] URINALYSIS UA Ketones Negative mg/dL Negative 12/11/2012 [facility] URINALYSIS UA Blood Negative (12/11/2012 17:15:00) Negative 12/11/2012 Normal [facility] URINALYSIS UA Glucose Negative mg/dL Negative 12/11/2012 [facility] URINALYSIS UA Bili Negative *NA* (12/11/2012 17:15:00) Negative 12/11/2012 [facility] URINALYSIS UA WBC 3 0 - 5 12/11/2012 Normal [facility] URINALYSIS UA RBC 1 0 - 2 12/11/2012 Normal [facility] URINALYSIS UA Bacteria Occasional /HPF None Seen 12/11/2012 [facility] BEDSIDE GLUCOSE TESTING Comment1 Notify RN/MD 07/23/2012 NA [facility] BEDSIDE GLUCOSE TESTING Gluc POC Lifscn 314 70 - 99 07/23/2012 [place] <sup>1</sup>Interpretive Data: Upper Reportable Limit: 200 mg/dL. [facility] CHEMISTRY Globulin 3.8 2.0 - 4.0 07/23/2012 Normal [facility] CHEMISTRY A/G Ratio 0.7 0.7 - 1.6 07/23/2012 Normal [facility] CHEMISTRY Bili Indirect 0.9 0.0 - 1.0 07/23/2012 Normal [facility] CHEMISTRY AST 246 0 - 37 07/23/2012 [facility] CHEMISTRY Bili Total 3.7 0.2 - 1.3 07/23/2012 HI [facility] CHEMISTRY Bili Direct 2.8 0.0 - 0.3 07/23/2012 HI [facility] CHEMISTRY Total Protein 6.3 6.4 - 8.4 07/23/2012 LOW [facility] CHEMISTRY Albumin Lvl 2.5 3.5 - 5.0 07/23/2012 LOW [facility] CHEMISTRY ALT 752 0 - 65 07/23/2012 [facility] CHEMISTRY Alk Phos 252 39 - 136 07/23/2012 [facility] HEMATOLOGY PT 17.4 12.0 - 14.7 07/23/2012 [facility] HEMATOLOGY INR 1.41 0.85 - 1.17 07/23/2012 [place] <sup>6</sup>Interpretive Data: RECOMMENDED RANGES FOR PROTIME INR:
2.0-3.0 for most medical and surgical thromboembolic states.
2.5-3.5 for artificial heart valves and recurrent embolism.

INR SHOULD BE USED ONLY FOR PATIENTS ON STABLE ANTICOAGULANT THERAPY. [facility] BEDSIDE GLUCOSE TESTING Comment1 Notify RN/ 07/23/2012 [facility] BEDSIDE GLUCOSE TESTING Gluc POC Lifscn 93 70 - 99 07/23/2012 Normal <sup>2</sup>Interpretive Data: Upper Reportable Limit: 200 mg/dL. [facility] BEDSIDE GLUCOSE TESTING Comment2 Notify RN/ 07/22/2012 [facility] BEDSIDE GLUCOSE TESTING Comment1 Assess patient 07/22/2012 [facility] BEDSIDE GLUCOSE TESTING Gluc POC Lifscn 290 70 - 99 07/22/2012 [place] <sup>3</sup>Interpretive Data: Upper Reportable Limit: 200 mg/dL. [facility] BEDSIDE GLUCOSE TESTING Comment2 Notify RN/ 07/22/2012 [facility] CHEMISTRY AST 324 0 - 37 07/22/2012 [facility] CHEMISTRY Bili Direct 4.6 0.0 - 0.3 07/22/2012 [facility] CHEMISTRY Total Protein 6.7 6.4 - 8.4 07/22/2012 Normal [facility] CHEMISTRY Albumin Lvl 3.0 3.5 - 5.0 07/22/2012 LOW [facility] CHEMISTRY ALT 992 0 - 65 07/22/2012 [facility] CHEMISTRY Bili Total 5.9 0.2 - 1.3 07/22/2012 [facility] CHEMISTRY Alk Phos 323 39 - 136 07/22/2012 [facility] CHEMISTRY Globulin 3.7 2.0 - 4.0 07/22/2012 Normal [facility] CHEMISTRY Bili Indirect 1.3 0.0 - 1.0 07/22/2012 HI [facility] CHEMISTRY A/G Ratio 0.8 0.7 - 1.6 07/22/2012 Normal [facility] HEMATOLOGY PT 16.2 12.0 - 14.7 07/22/2012 [facility] HEMATOLOGY INR 1.28 0.85 - 1.17 07/22/2012 [place] <sup>7</sup>Interpretive Data: RECOMMENDED RANGES FOR PROTIME INR:
2.0-3.0 for most medical and surgical thromboembolic states.
2.5-3.5 for artificial heart valves and recurrent embolism.

INR SHOULD BE USED ONLY FOR PATIENTS ON STABLE ANTICOAGULANT THERAPY. [facility] HEMATOLOGY PTT 31.7 22.9 - 35.8 07/22/2012 Normal <sup>9</sup>Interpretive Data: Heparin Therapeutic Range: 57 - 92 Seconds [facility] BEDSIDE GLUCOSE TESTING Comment2 Notify RN/ 07/21/2012 [facility] CHEMISTRY Alk Phos 371 39 - 136 07/21/2012 [facility] CHEMISTRY Bili Total 8.0 0.2 - 1.3 07/21/2012 [facility] CHEMISTRY ALT 1418 0 - 65 07/21/2012 [facility] CHEMISTRY Globulin 4.7 2.0 - 4.0 07/21/2012 [facility] CHEMISTRY A/G Ratio 0.7 0.7 - 1.6 07/21/2012 Normal [facility] CHEMISTRY Total Protein 7.9 6.4 - 8.4 07/21/2012 Normal [facility] CHEMISTRY Albumin Lvl 3.2 3.5 - 5.0 07/21/2012 LOW [facility] CHEMISTRY Bili Indirect 1.5 0.0 - 1.0 07/21/2012 [facility] CHEMISTRY AST 671 0 - 37 07/21/2012 [facility] CHEMISTRY Bili Direct 6.5 0.0 - 0.3 07/21/2012 [facility] HEMATOLOGY PTT 33.2 22.9 - 35.8 07/21/2012 Normal <sup>10</sup>Interpretive Data: Heparin Therapeutic Range: 57 - 92 Seconds [facility] HEMATOLOGY INR 1.37 0.85 - 1.17 07/21/2012 [place] <sup>8</sup>Interpretive Data: RECOMMENDED RANGES FOR PROTIME INR:
2.0-3.0 for most medical and surgical thromboembolic states.
2.5-3.5 for artificial heart valves and recurrent embolism.

INR SHOULD BE USED ONLY FOR PATIENTS ON STABLE ANTICOAGULANT THERAPY. [facility] HEMATOLOGY PT 17.0 12.0 - 14.7 07/21/2012 [facility] PTT 38.4 22.9 - 35.8 07/20/2012 [place] <sup>11</sup>Interpretive Data: Heparin Therapeutic Range: 57 - 92 Seconds [facility] EBV VCA IgG >8.0 <=0.8 07/19/2012 [place] <sup>13</sup>Interpretive Data: Antibody Index (AI) Results Interpretation
-------
0.0-0.8 Negative No detectable IgG Antibody.
0.9-1.0 Equivocal Repeat testing suggested in
10-14 days.
>=1.10 Positive Indicates presence of detectable
IgG Antibody. [facility] EBV VCA IgM 0.4 <=0.8 07/19/2012 Normal <sup>14</sup>Interpretive Data: Antibody Index (AI) Results Interpretation
-------
0.0-0.8 Negative No detectable IgM Antibody.
0.9-1.0 Equivocal Repeat testing suggested in
10-14 days.
>=1.10 Positive Significant level of detectable
IgM Antibody, indicative of
current or recent infection. [facility] CMV IgM 0.4 07/19/2012 NA <sup>12</sup>Interpretive Data: Reference Ranges:
Non-reactive: <0.9 S/CO Ratio
Indeterminate: 0.9 - 1.0 S/CO Ratio
Reactive: >=1.1 S/CO Ratio [facility] CMV IgG Reactive *ABN* (07/19/2012 04:03:00) Non Reactive 07/19/2012 ABN [facility] IMMUNOLOGY SMA Titer 1:80 *ABN* (07/19/2012 04:03:00) Negative 07/19/2012 ABN [facility] IMMUNOLOGY A-1-AT 204 83 - 199 07/19/2012 HI [facility] IMMUNOLOGY SMA Screen Positive *ABN* (07/19/2012 04:03:00) Negative 07/19/2012 ABN [facility] IMMUNOLOGY AMA Ab Scr Negative (07/19/2012 04:03:00) Negative 07/19/2012 Normal [facility] IMMUNOLOGY Ceruloplasmin 44 20 - 60 07/19/2012 Normal [facility] IMMUNOLOGY [place] Positive *ABN* (07/19/2012 04:03:00) Negative 07/19/2012 ABN [facility] IMMUNOLOGY DNA DS Ttr 1:20 *ABN* (07/19/2012 04:03:00) 07/19/2012 ABN [facility] SS-B (La) Ab Negative (07/19/2012 04:03:00) Negative 07/19/2012 Normal [facility] SS-A ([place]) Ab Negative (07/19/2012 04:03:00) Negative 07/19/2012 Normal [facility] IMMUNOLOGY [employer] Ab Negative (07/19/2012 04:03:00) Negative 07/19/2012 Normal [facility] IMMUNOLOGY Sm Ab Negative (07/19/2012 04:03:00) Negative 07/19/2012 Normal [facility] DNA Ab (DS) Positive *ABN* (07/19/2012 04:03:00) Negative 07/19/2012 ABN [facility] IMMUNOLOGY [place] Interp Pattern appears Homogeneous Marked Cytoplamic staining present. 07/19/2012 NA [facility] IMMUNOLOGY [place] Titer 1:160 *ABN* (07/19/2012 04:03:00) Negative 07/19/2012 ABN [facility] CHEMISTRY Acetaminoph Lvl 10 - 20 07/18/2012 Normal [facility] URINALYSIS UA Urobilinogen 0.1 - 1.0 07/18/2012 NA [facility] URINALYSIS UA WBC 7 0 - 5 07/18/2012 HI [facility] URINALYSIS UA RBC 1 0 - 2 07/18/2012 Normal [facility] URINALYSIS UA Bili Negative *NA* (07/17/2012 21:30:00) Negative 07/18/2012 NA [facility] URINALYSIS UA Nitrite Negative (07/17/2012 21:30:00) Negative 07/18/2012 Normal [facility] URINALYSIS UA Sq Epi Occasional /LPF *NA* (07/17/2012 21:30:00) Few 07/18/2012 NA [facility] URINALYSIS UA Leuk Est Moderate *ABN* (07/17/2012 21:30:00) Negative 07/18/2012 ABN [facility] URINALYSIS UA Ketones Negative mg/dL *NA* (07/17/2012 21:30:00) Negative 07/18/2012 NA [facility] URINALYSIS UA Blood Negative (07/17/2012 21:30:00) Negative 07/18/2012 Normal [facility] URINALYSIS UA Glucose Negative mg/dL *NA* (07/17/2012 21:30:00) Negative 07/18/2012 NA [facility] URINALYSIS UA Turbidity Slight *ABN* (07/17/2012 21:30:00) Clear 07/18/2012 ABN [facility] URINALYSIS UA Protein Negative mg/dL (07/17/2012 21:30:00) Negative 07/18/2012 Normal [facility] URINALYSIS UA Color Yellow *NA* (07/17/2012 21:30:00) Yellow 07/18/2012 NA [facility] URINALYSIS UA pH 7.0 5.0 - 8.0 07/18/2012 Normal [facility] URINALYSIS UA Spec Grav 1.003 <=1.030 07/18/2012 Normal [facility] Microbiology Culture: Urine 07/18/2012 [facility] CHEMISTRY Potassium Lvl 3.5 3.5 - 5.1 07/18/2012 Normal [facility] CHEMISTRY Sodium Lvl 130 135 - 145 07/18/2012 LOW [facility] CHEMISTRY Chloride Lvl 97 95 - 109 07/18/2012 Normal [facility] CHEMISTRY eGFR 87 07/18/2012 NA <sup>4</sup>Result Comment: The eGFR is calculated using the CKD-EPI formula. In most young, healthy individuals the eGFR will be >90 mL/min/1.73m2. The eGFR declines with age. An eGFR of 60-89 may be normal in some populations, particularly the elderly, for whom the CKD-EPI formula has not been extensively validated. Use of the eGFR is not recommended in the following populations:& lt;br/>
Individuals with unstable creatinine concentrations, including patients and those with serious co-morbid conditions.

Patients with extremes in muscle mass or diet.

The data above are obtained from the National Kidney Disease Education Program (NKDEP) which additionally recommends that when the eGFR is used in patients with extremes of body mass index for purposes of drug dosing, the eGFR should be multiplied by the estimated BMI. [facility] CHEMISTRY B/C Ratio 17 6 - 25 07/18/2012 Normal [facility] CHEMISTRY Calcium Lvl 8.9 8.5 - 10.5 07/18/2012 Normal [facility] CHEMISTRY AGAP 13.5 10.0 - 20.0 07/18/2012 Normal [facility] CHEMISTRY CO2 23 24 - 32 07/18/2012 LOW [facility] CHEMISTRY Creatinine Lvl 0.7 0.5 - 1.4 07/18/2012 Normal [facility] CHEMISTRY Glucose Lvl 104 70 - 99 07/18/2012 [place] <sup>5</sup>Interpretive Data: Adult reference range values reflect the clinical guidelines
of the [place] [employer]. [facility] CHEMISTRY BUN 12 7 - 22 07/18/2012 Normal [facility] CHEMISTRY GGT 747 5 - 85 07/18/2012 HI [facility] CHEMISTRY Lipase Lvl 112 73 - 393 07/18/2012 Normal [facility] HEMATOLOGY Eosinophils # 0.1 0.0 - 0.5 07/18/2012 Normal [facility] HEMATOLOGY Basophils # 0.0 0.0 - 0.2 07/18/2012 Normal [facility] HEMATOLOGY Segs-Bands # 7.2 1.5 - 8.1 07/18/2012 Normal [facility] HEMATOLOGY Lymphocytes # 2.2 1.0 - 5.5 07/18/2012 Normal [facility] HEMATOLOGY Monocytes # 1.9 0.0 - 0.8 07/18/2012 HI [facility] HEMATOLOGY Monocytes 16.6 2.0 - 12.0 07/18/2012 HI [facility] HEMATOLOGY Eosinophils 0.6 0.0 - 4.0 07/18/2012 Normal [facility] HEMATOLOGY Basophils 0.2 0.0 - 1.0 07/18/2012 Normal [facility] HEMATOLOGY Segs 63.4 45.0 - 75.0 07/18/2012 Normal [facility] HEMATOLOGY Lymphocytes 19.2 20.0 - 40.0 07/18/2012 LOW [facility] HEMATOLOGY Hgb 12.5 12.0 - 16.0 07/18/2012 Normal [facility] HEMATOLOGY MCV 94.2 81.0 - 99.0 07/18/2012 Normal [facility] HEMATOLOGY Hct 36.7 36.0 - 48.0 07/18/2012 Normal [facility] HEMATOLOGY MCH 32.0 27.0 - 31.0 07/18/2012 HI [facility] HEMATOLOGY MCHC 34.0 32.0 - 36.0 07/18/2012 Normal [facility] RBC 3.89 4.20 - 5.40 07/18/2012 LOW [facility] HEMATOLOGY WBC 11.4 3.7 - 10.4 07/18/2012 HI [facility] HEMATOLOGY RDW 16.8 11.5 - 14.5 07/18/2012 [facility] HEMATOLOGY MPV 8.6 7.4 - 10.4 07/18/2012 Normal [facility] HEMATOLOGY Platelet 226 133 - 450 07/18/2012 Normal [facility] IMMUNOLOGY Hep A IgM Negative *NA* (07/17/2012 19:18:00) Negative 07/18/2012 NA [facility] Hep B Core IgM Negative *NA* (07/17/2012 19:18:00) Negative 07/18/2012 Count includes the [facility] Hep Bs Ag Negative *NA* (07/17/2012 19:18:00) Negative 07/18/2012 NA [facility] IMMUNOLOGY Hep C Ab Negative *NA* (07/17/2012 19:18:00) Negative 07/18/2012 [facility] Pathology Reports No Data Provided for This Section Diagnostic Reports Report Value Date Source Digital Mammo Screening Oral MA - DIGITAL MAMMO SCREENING ORAL MA BILATERAL DIGITAL SCREENING MAMMOGRAM WITH CAD: 04/21/2015 CLINICAL: Other Screening Mammogram. Current study was evaluated with a Computer Aided Detection (CAD) system. Comparison is made to exams dated: 12/25/2013 mammogram, 09/25/2012 mammogram, 09/02/2011 mammogram, 06/08/2010 mammogram, 05/26/2009 mammogram - [facility] and 10/04/2007 mammogram - [facility]. The tissue of both breasts is extremely dense. This may lower the sensitivity of mammography. There are benign appearing calcifications in both breasts. There also are benign appearing densities in both breasts. Additionally there is a benign appearing intramammary node in the left breast. No significant masses, calcifications, or other findings are seen in either breast. There has been no significant interval change. IMPRESSION: BENIGN There is no mammographic evidence of malignancy. A 1 year screening mammogram is recommended. SUMMARY: As the patient has dense breast parenchyma, this could obscure additional abnormalities. The patient would likely benefit from a supplemental screening test such as bilateral ultrasound. This should be discussed with the patient by the referring physician. Pretty Ying M.D. ap/penrad:04/22/2015 09:10:37 [employer] Bab[employer]itter: Elisa Snow, [facility] This exam was dictated and interpreted by [id number] for [facility]. letter sent: Normal [facility] BI-RADS: 2 Benign 04/21/2015 [facility] Chest 1view DX Examination: Chest x-ray, single view History: Coughing Comparison: 10/25/2011 Findings: The lungs are clear and without focal consolidation. The cardiomediastinal silhouette is within normal limits. No pleural effusion or pneumothorax is seen. The osseous structures are without focal abnormality. Azygos lobe is again noted. IMPRESSION: No acute cardiopulmonary disease. SL: 16 08/03/2014 [facility] Abdomen complete US ABDOMINAL ULTRASOUND. HISTORY: Jaundice. TECHNIQUE: The abdomen was scanned utilizing dynamic scanning. Comparison is made to a right upper quadrant ultrasound of 12/11/2012. An MRI of the abdomen of 07/19/2012 was reviewed. FINDINGS: Gallbladder: Status post cholecystectomy. Common bile duct: Not dilated, 3 mm in diameter Bile ducts: No intrahepatic ductal dilatation evident. Liver: Somewhat coarsened echogenicity which may indicate diffuse hepatocellular disease. It is noted the patient underwent a liver biopsy on 07/19/2012. Please refer to the liver biopsy results. No focal lesion seen. Pancreas: Most of pancreas visualized and unremarkable. Spleen: Normal in size. Measures 9.8 x 3.6 x 3.4 cm Kidneys: Normal in size and echogenicity without hydronephrosis. Right kidney size: 9.9 x 4.6 x 4.1 cm. Left kidney size: 9.9 x 5.3 x 3.9 cm. Aorta: Normal in caliber. IVC: Visualized in segments and appears patent. CONCLUSION: 1. Status post cholecystectomy. 2. Coarsened echotexture of the liver which could indicate diffuse hepatocellular disease. 3.It is noted the patient underwent a liver biopsy on 07/19/2012. Please refer to the liver biopsy results. 4. No evidence of biliary ductal dilatation or other abnormality. Coding: Abdomen complete US CPT code:60364 SL: 13 Art Munson M.D. 01/08/2014 [facility] Digital Mammo Screening Oral MA - DIGITAL MAMMO SCREENING ORAL MA BILATERAL DIGITAL SCREENING MAMMOGRAM WITH CAD: 12/25/2013 CLINICAL: Other Screening Mammogram. Current study was evaluated with a Computer Aided Detection (CAD) system. Comparison is made to exams dated: 09/25/2012 mammogram, 09/02/2011 mammogram, 06/08/2010 mammogram, 05/26/2009 mammogram - [facility] and 10/04/2007 mammogram - [facility]. The tissue of both breasts is heterogeneously dense, which could obscure detection of small masses. There are benign calcifications in both breasts. There also is a benign nodule in the left breast. No significant masses, calcifications, or other findings are seen in either breast. There has been no significant interval change. IMPRESSION: BENIGN There is no mammographic evidence of malignancy. A screening mammogram in one year is recommended. Nga castle/jahaira:12/26/2013 08:16:23 Before School Babysitter: Pamela Topete, [facility] This exam was dictated and interpreted by [id number] for [facility]. letter sent: Normal exam Mammogram BI-RADS: 2 Benign 12/25/2013 [facility] Abdomen RUQ US PROCEDURE: Right upper quadrant abdominal ultrasound. INDICATION: Acute abdominal pain. COMPARISON: Liver ultrasound 07/16/2012. FINDINGS: The pancreas is not visualized in its entirety. There is no mass lesion in the visualized pancreas. The liver has normal homogeneous echogenicity without any mass lesion . Nonvisualization of the gallbladder presumably post cholecystectomy. The common bile duct measures 4.0 mm in diameter. There is no stone visualized in the common bile duct. The right kidney measures 10.1 cm. There is no mass lesion or hydronephrosis in the right kidney. IMPRESSION: Postoperative cholecystectomy. SL: 12 12/11/2012 [facility] Digital Mammo Screening Oral MA - DIGITAL MAMMO SCREENING ORAL MA BILATERAL DIGITAL SCREENING MAMMOGRAM WITH CAD: 09/25/2012 CLINICAL: Routine. Current study was evaluated with a Computer Aided Detection (CAD) system. Comparison is made to exams dated: 09/02/2011 mammogram, 06/08/2010 mammogram, 05/26/2009 mammogram - [facility], 10/04/2007 mammogram - [facility] and 01/11/2005. The tissue of both breasts is heterogeneously dense. This may lower the sensitivity of mammography. There are benign calcifications in both breasts. There also is a benign nodule in the left breast. No significant masses, calcifications, or other findings are seen in either breast. There has been no significant interval change. IMPRESSION: BENIGN There is no mammographic evidence of malignancy. A screening mammogram in one year is recommended. SUMMARY: SL: 13. Nga castle/jahaira:09/26/2012 08:15:06 Before School Babysitter: Nia Velasquez, [facility] letter sent: Normal exam Mammogram BI-RADS: 2 Benign 09/25/2012 [facility] Biopsy liver VR NEEDLE BIOPSY OF THE LIVER: HISTORY: Abnormal liver functions with jaundice due to acute liver failure. Autoimmune hepatitis is being considered. PROCEDURE: A suitable access site in the right intercostal region was identified with ultrasound. The procedure was then done using fluoroscopic guidance, sterile technique and local anesthetic. The fluoroscopic time for the procedure was 0.4 minutes. A 17-gauge guide needle was placed into the right lobe of the liver. Three cores of tissue were then obtained using a coaxial 18-gauge cutting needle and placed into formalin for histology. The tract was embolized with 3 pieces of gelfoam via the guide needle prior to its removal. The patient tolerated the procedure well without complications, and was transferred back to her hospital room in stable condition. SL:13 07/19/2012 [facility] Abdomen wo contrast MRI MRCP. TECHNIQUE: Multiple imaging sequences were obtained including axial T1, coronal T2 SS FSE, axial T2 SS FSE, axial T2 fat-saturated, and three-dimensional thick slab. COMPARISON: Liver ultrasound 07/16/2012 FINDINGS: The biliary system is reasonably well demonstrated. The common bile duct is of upper range normal to minimally dilated with maximum caliber at 6.5 mm. No filling defects to suggest choledocholithiasis. No intrahepatic bile duct dilation. The pancreatic duct is reasonably well visualized and demonstrates normal morphology. 2.3 x 1.3 cm increased T2 signal focus is noted anterior to the aorta near the aortic hiatus. This is located posterior and inferior to the heart. Tiny high T2 signal lesions are visualized in both kidneys, likely reflecting subcentimeter cysts IMPRESSION: Minimal dilation of common bile duct likely related to post cholecystectomy change. No intraluminal filling defects to suggest choledocholithiasis. Small increased T2 signal focus noted inferior to the heart and anterior to the aorta near the thoracoabdominal junction. This may represent a pericardial cyst but is inadequately evaluated on the current study. Further evaluation with cardiac echo or pre- and postcontrast CT of abdomen is recommended. SL:07/19/2012 [facility] Liver US PROCEDURE: Liver US CLINICAL INFORMATION: Elev. LFT's COMPARISON: None. FINDINGS: The pancreas body is obscured by bowel gas. The liver echotexture is normal. There is no intrahepatic ductal dilation. The gallbladder is without stones, pericholecystic fluid or abnormal wall thickness. The common bile duct measures 3.1 mm. IMPRESSION: 1. Normal liver ultrasound. SL: 07/16/2012 [facility] Consultation Notes No Data Provided for This Section Discharge Summaries No Data Provided for This Section History and Physicals No Data Provided for This Section Vital Signs Vital Sign Value Date Comments Source Temperature Oral (F) 97.7 F 2014 [facility] Heart Rate 87 2014 [facility] Systolic (mm Hg) 148 2014 [facility] Diastolic (mm Hg) 78 2014 [facility] Respitory Rate 18 2014 [facility] Temperature Oral (F) 97.7 F 2014 [facility] Heart Rate 80 2014 [facility] Systolic (mm Hg) 143 2014 [facility] Diastolic (mm Hg) 73 2014 [facility] Respitory Rate 19 2014 [facility] Heart Rate 77 2014 [facility] Respitory Rate 19 2014 [facility] Systolic (mm Hg) 137 2014 [facility] Diastolic (mm Hg) 73 2014 [facility] Temperature Oral (F) 97.3 F 2014 [facility] Weight 70.091 08/04/2014 [facility] Weight 60.455 08/04/2014 [facility] BMI Calculated 25.18 08/04/2014 [facility] Height 154.94 cm 08/04/2014 [facility] Weight 56.818 08/04/2014 [facility] BMI Calculated 24.46 08/04/2014 [facility] Height 152.4 cm 08/04/2014 [facility] Diastolic (mm Hg) 72 01/15/2014 [facility] Systolic (mm Hg) 113 01/15/2014 [facility] Respitory Rate 18 01/15/2014 [facility] Heart Rate 74 01/15/2014 [facility] Temperature Oral (F) 97.5 F 01/15/2014 [facility] Heart Rate 65 01/15/2014 [facility] Temperature Oral (F) 98.1 F 01/15/2014 [facility] Respitory Rate 18 01/15/2014 [facility] Systolic (mm Hg) 138 01/15/2014 [facility] Diastolic (mm Hg) 79 01/15/2014 [facility] Temperature Oral (F) 97.6 F 01/15/2014 [facility] Heart Rate 85 01/15/2014 [facility] Respitory Rate 18 01/15/2014 [facility] Diastolic (mm Hg) 73 01/15/2014 [facility] Systolic (mm Hg) 142 01/15/2014 [facility] BMI Calculated 28.97 01/10/2014 [facility] Weight 69.545 01/10/2014 [facility] Height 154.94 cm 01/10/2014 [facility] Height 154.94 cm 01/10/2014 [facility] BMI Calculated 28.97 01/10/2014 [facility] Weight 69.545 01/10/2014 [facility] Temperature Oral (F) 97.7 F 12/14/2012 [facility] Respitory Rate 15 12/14/2012 [facility] Systolic (mm Hg) 150 12/14/2012 [facility] Diastolic (mm Hg) 68 12/14/2012 [facility] Heart Rate 62 12/14/2012 [facility] Diastolic (mm Hg) 65 12/14/2012 [facility] Temperature Oral (F) 98.5 F 12/14/2012 [facility] Respitory Rate 16 12/14/2012 [facility] Systolic (mm Hg) 138 12/14/2012 [facility] Heart Rate 77 12/14/2012 [facility] Temperature Oral (F) 98.3 F 12/14/2012 [facility] Heart Rate 79 12/14/2012 [facility] Respitory Rate 16 12/14/2012 [facility] Diastolic (mm Hg) 62 12/14/2012 [facility] Systolic (mm Hg) 120 12/14/2012 [facility] Height 154.94 cm 12/12/2012 [facility] Weight 67.955 12/12/2012 [facility] Height 154.94 cm 12/11/2012 [facility] Weight 68.182 12/11/2012 [facility] Systolic (mm Hg) 122 07/23/2012 [facility] Heart Rate 83 07/23/2012 [facility] Respitory Rate 18 07/23/2012 [facility] Temperature Oral (F) 97.4 F 07/23/2012 [facility] Diastolic (mm Hg) 68 07/23/2012 [facility] Respitory Rate 18 07/23/2012 [facility] Heart Rate 60 07/23/2012 [facility] Systolic (mm Hg) 132 07/23/2012 [facility] Temperature Oral (F) 97.6 F 07/23/2012 [facility] Diastolic (mm Hg) 75 07/23/2012 [facility] Respitory Rate 18 07/23/2012 [facility] Systolic (mm Hg) 118 07/23/2012 [facility] Diastolic (mm Hg) 65 07/23/2012 [facility] Temperature Oral (F) 97.7 F 07/23/2012 [facility] Heart Rate 66 07/23/2012 [facility] Height 157.4 cm 07/22/2012 [facility] Height 157.4 cm 07/21/2012 [facility] Weight 62.7 07/18/2012 [facility] Weight 62.727 07/17/2012 [facility] Height 157.48 cm 07/17/2012 [facility] Encounters Location Location Details Encounter Type Encounter Number Reason For Visit Attending Provider ADM Date DC Date Status Source [facility] Outpatient [id number] NECK PAIN, CERVICAL SPONDYLOSIS, ASLAM TRONCOSO 07/01/2011 Active [facility] Outpatient [id number] NECK PAIN ASLAM TRONCOSO 07/13/2011 Active [facility] Outpatient [id number] ROUTINE SCREENING ASLAM TRONCOSO 09/02/2011 Active [facility] Outpatient [id number] DENSITY ASLAM TRONCOSO 09/15/2011 Active [facility] Outpatient [id number] 511.9 ZACHARY BAPAT 10/25/2011 Active [facility] Inpatient [id number] RAFI TEQWIMUAH 07/17/2012 07/23/2012 Discharged [facility] Outpatient [id number] ROUTINE MAYNOR TRONCOSO 09/25/2012 Active [facility] Inpatient [id number] ASLAM TRONCOSO 12/11/2012 12/14/2012 Discharged [facility] Outpatient [id number] Aslam Troncoso 12/25/2013 12/26/2013 [facility] Outpatient [id number] Aslam Troncoso 01/08/2014 01/09/2014 [facility] Inpatient [id number] Rafi Chavaqwimana laura 01/10/2014 01/15/2014 [facility] Inpatient [id number] Preeti Betancur 08/04/2014 2014 [facility] Outpatient [id number] Aslam Troncoso 04/21/2015 04/22/2015 [facility] Outpatient [id number] THEODOROS VOLOYIANNIS 05/12/2015 Active [facility] Outpatient [id number] THEODOROS VOLOYIANNIS 07/02/2015 Active [facility] Outpatient [id number] THEODOROS VOLOYIANNIS 07/21/2015 Active [facility] Outpatient [id number] THEODOROS VOLOYIANNIS 10/22/2015 Active [facility] Outpatient [id number] ANN ALVAREZAY 01/19/2016 Active [facility] Outpatient [id number] ELEVATED LFT ASLAM TRONCOSO Active [facility] Procedures Procedure Code Date Perfomer Comments Source Breast biopsy and related procedures [id number] [facility] Cataract surgery [id number] [facility] Appendectomy [id number] [facility] Cholecystectomy [id number] [facility] Tonsillectomy [id number] [facility] Total hysterectomy [id number] [facility] Appendectomy [id number] [facility] Cholecystectomy [id number] [facility] Tonsillectomy [id number] [facility] Total hysterectomy [id number] [facility] Assessment and Plan Assessment and Plan Date Source Extracted from:Title: Clinical Document Author: Rafi Sage DO Date: 01/14/14 Progress Daily [facility] SUBJECTIVE Pt is feeling better with no pain in her left eye which is still red. denies fever or chills OBJECTIVE Vital Signs (last 24 hrs) Last Charted Minimum Maximum Temp 98 (JAN 14 08:00) 97.5 (JAN 13 11:48) 98.2 (JAN 13 20:15) Heart Rate 79 (JAN 14 08:00) 73 (JAN 14 00:51) 79 (JAN 14 08:00) Resp Rate 18 (DEC 09 08:00) 18 (JAN 13 11:48) 18 (JAN 13 11:48) SBP H 148 (JAN 14 08:00) 127 (JAN 13 11:48) H 148 (JAN 14 08:00) DBP 79 (JAN 14 08:00) 64 (JAN 13 15:48) 79 (JAN 13 20:15) Labs (Last four charted values) WBC 9.5 (JAN 10) Hgb L 11.5 (JAN 10) Hct L 34.0 (JAN 10) Plt 138 (JAN 11) 153 (JAN 10) Na 141 (JAN 13) 137 (JAN 12) L 134 (JAN 11) 135 (JAN 10) K 3.9 (JAN 13) 4.0 (JAN 12) 4.2 (JAN 11) 4.0 (JAN 10) CO2 L 20 (JAN 13) L 18 (JAN 12) 15 (JAN 11) L 17 (JAN 10) Cl H 111 (JAN 13) H 111 (JAN 12) 109 (JAN 11) 109 (JAN 10) Cr 0.8 (JAN 13) 0.8 (JAN 12) 0.9 (JAN 11) 0.8 (JAN 11) BUN 22 (JAN 13) 22 (JAN 12) 13 (JAN 11) 11 (JAN 10) Glucose Random H 184 (JAN 13) H 189 (JAN 12) H 261 (JAN 11) L 61 (JAN 10) Ca L 7.2 (JAN 13) L 7.5 (JAN 12) L 8.1 (JAN 11) L 8.1 (JAN 10) PTT H 36.3 (JAN 11) Input/Output Record In Out Bal 01/14 24hr Tot 302 0 302 01/13 24hr Tot 2442 0 [id number] ASSESSMENT and EXAM Gen. Pt is AOX4 in no acute distress HEET: Normocephalic, nontraumatic.left eye hemorrhage with sclera icterus NECK: Supple, no JVD or Lymphadenopathy LUNGS: Clear on auscultation B/l with no wheezing or crackles HEART: S1, S2.RRR with no murmurs ABDOMEN: Soft, NT/ND with good BS CENTRAL NERVOUS SYSTEM: Patient moving all extremities grossly well. LOWER EXTREMITIES: No C/C/E PLAN and TREATMENT Pt with a hx id Autoimmune hepatitis admitted with jaundice with elevated LFT -Appreciated input from GI -C/w IV steroid at a redused dose -LFTs are improving -Monitor blood glucose closely -D/C IVF -Monitor left eye hemorrhage closely -Pt will need Ophthalmology f/u as out pt DIAGNOSES and PROBLEMS Jaundice Autoimmune hepatitis Anorexia Lupus Rheumothoid arthritis HTN Hypothyroidism DM Scheduled Meds (11):aspirin (aspirin 81 mg tablet, enteric coated), enoxaparin, ferrous sulfate, isosorbide mononitrate, levothyroxine, methylPREDNISolone, metoprolol (metoprolol tartrate), multivitamin, pantoprazole, spironolactone, tolterodine (Detrol LA) Unscheduled Meds: None PRN Meds (8):Dextrose 50% in Water IV, glucagon, insulin aspart (NovoLOG FlexPen), insulin aspart (NovoLOG FlexPen), insulin aspart (NovoLOG FlexPen), insulin aspart (NovoLOG FlexPen), insulin aspart (NovoLOG FlexPen), insulin aspart (NovoLOG FlexPen) One Time Meds: None Continuous Infusions: None 01/15/2014 [facility] Plan of Care No Data Provided for This Section Social History Social History Date Source Social History TypeResponse Smoking Status Former smoker; Type: Cigarettes; Exposure to Tobacco Smoke None; Cigarette Smoking Last 365 Days No; Reg Smoking Cessation Counseling No 08/04/2014 [facility] Family History No Data Provided for This Section Advance Directives No Data Provided for This Section Functional Status No Data Provided for This Section
--- OUTSIDE RECORDS SUMMARY | 2018-08-19 12:32 | XMS REPORT | CCD ---
Author Author Auto Generated Organization [facility] Address Unknown Phone Unavailable Care Team Providers Care Dredge Master Name Role Phone Eugene Coy CP Allergies, Adverse Reactions, Alerts Substance Reaction Status codeine Active Demerol Active
--- OUTSIDE RECORDS SUMMARY | 2018-08-19 12:32 | XMS REPORT | CCD ---
Author Author Auto Generated Organization [facility] Address Unknown Phone Unavailable Care Team Providers Care Mechanic And Welder Name Role Phone Zay Troncoso CP Allergies, Adverse Reactions, Alerts Substance Reaction Status codeine Active Demerol Active
--- OUTSIDE RECORDS SUMMARY | 2018-08-19 12:32 | XMS REPORT | CCD ---
Author Author Auto Generated Organization [facility] Address Unknown Phone Unavailable Care Team Providers Care Boom Stick Worker Name Role Phone Zay Troncoso RP Allergies, Adverse Reactions, Alerts Substance Reaction Status codeine Active Demerol Active
--- OUTSIDE RECORDS SUMMARY | 2018-08-19 12:32 | XMS REPORT | CCD ---
Author Author Auto Generated Organization [facility] Address Unknown Phone Unavailable Care Team Providers Care Food Bagging Machine Operator Name Role Phone Zay Troncoso RP Allergies, Adverse Reactions, Alerts Substance Reaction Status codeine Active Demerol Active
--- OUTSIDE RECORDS SUMMARY | 2018-08-19 12:32 | XMS REPORT | CCD ---
Author Author Auto Generated Organization [facility] Address Unknown Phone Unavailable Care Team Providers Care Beaver Trapper Name Role Phone Zay Troncoso RP Allergies, Adverse Reactions, Alerts Substance Reaction Status codeine Active Demerol Active
--- OUTSIDE RECORDS SUMMARY | 2018-08-19 12:33 | XMS REPORT | CCD ---
Author Author Auto Generated Organization [facility] Address Unknown Phone Unavailable Care Team Providers Care General Farmworker Name Role Phone Rafi Sage CP Allergies, Adverse Reactions, Alerts Substance Reaction Status codeine Active Demerol Active Problem List Condition Effective Dates Status Angina Resolved Benign hypertension Resolved H/O: hypothyroidism Active H/O: rheumatoid arthritis Active Hypercholesterolemia Active Liver enzymes abnormal Resolved Nausea Resolved UTI (urinary tract infection) Resolved Medications Medication Instructions Start Date End Date Status hydrochlorothiazide 12.5 mg, 0.5 tab, Route: PO, Drug 07/18/2012 07/23/2012 Discontinued 25 mg oral tablet form: TAB, Daily, Start date: 07/18/12 9:00:00, Duration: 30 day, Stop date: 08/16/12 9:00:00 Cozaar 50 mg, 1 tab, Route: PO, Drug form: 07/18/2012 07/23/2012 Discontinued TAB, Daily, Start date: 07/18/12 9:00:00, Duration: 30 day, Stop date: 08/16/12 9:00:00 Tums 1,000 mg, 2 tab, Route: CHEW, Drug 07/19/2012 07/23/2012 Discontinued form: CHEWTAB, TID, PRN Indigestion, Start date: 07/19/12 20:27:00, Duration: 30 day, Stop date: 08/18/12 20:26:00 Zofran 4 mg, 2 mL, Route: IV, Drug form: 07/17/2012 07/23/2012 Discontinued INJ, Q6H, Dosing Weight 62.727, kg, PRN Nausea, Start date: 07/17/12 21:25:00, Duration: 30 day, Stop date: 08/16/12 21:24:00 glipiZIDE 5 mg oral 5 mg, 1 tab, Route: PO, Drug form: 07/22/2012 07/23/2012 Discontinued tablet TAB, BID-Before Meals, Dosing Weight 62.7, kg, Start date: 07/22/12 7:30:00, Duration: 30 day, Stop date: 08/20/12 16:30:00 Restoril 15 mg, 1 cap, Route: PO, Drug form: 07/18/2012 07/23/2012 Discontinued CAP, Bedtime, PRN Sleep, Start date: 07/18/12 9:56:00, Duration: 30 day, Stop date: 08/17/12 9:55:00 MiraLax 34 gm, 2 pkt, Route: PO, Drug form: 07/21/2012 07/23/2012 Discontinued PWDR, Bedtime, PRN Constipation, Start date: 07/21/12 14:03:00, Duration: 30 day, Stop date: 08/20/12 14:02:00 Dextrose 50% in 50 mL, Route: IVP, Start date: 07/20/2012 07/23/2012 Discontinued Water IV 07/20/12 14:15:00, Duration: 30 day, Stop date: 08/19/12 14:14:00, PRN Blood Glucose Results glucagon 1 mg, Route: IM, Drug form: 07/20/2012 07/23/2012 Discontinued PDR/INJ, PRN, PRN Blood Glucose Results, Start date: 07/20/12 14:15:00, Duration: 30 day, Stop date: 08/19/12 14:14:00 NovoLog FlexPen 6 unit, 0.06 mL, Route: SUB-Q, Drug 07/20/2012 07/23/2012 Discontinued form: SOLN, Sliding Scale, PRN Blood Glucose Results, Start date: 07/20/12 14:15:00, Duration: 30 day, Stop date: 08/19/12 14:14:00 NovoLog FlexPen 5 unit, 0.05 mL, Route: SUB-Q, Drug 07/20/2012 07/23/2012 Discontinued form: SOLN, Sliding Scale, PRN Blood Glucose Results, Start date: 07/20/12 14:15:00, Duration: 30 day, Stop date: 08/19/12 14:14:00 NovoLog FlexPen 4 unit, 0.04 mL, Route: SUB-Q, Drug 07/20/2012 07/23/2012 Discontinued form: SOLN, Sliding Scale, PRN Blood Glucose Results, Start date: 07/20/12 14:15:00, Duration: 30 day, Stop date: 08/19/12 14:14:00 Ambien 5 mg, Route: PO, Bedtime, Dosing 07/18/2012 07/18/2012 Deleted Weight 62.7, kg, PRN Insomnia, Start date: 07/18/12 9:49:00, Duration: 30 day, Stop date: 08/17/12 9:48:00 NovoLog FlexPen 3 unit, 0.03 mL, Route: SUB-Q, Drug 07/20/2012 07/23/2012 Discontinued form: SOLN, Sliding Scale, PRN Blood Glucose Results, Start date: 07/20/12 14:15:00, Duration: 30 day, Stop date: 08/19/12 14:14:00 NovoLog FlexPen 2 unit, 0.02 mL, Route: SUB-Q, Drug 07/20/2012 07/23/2012 Discontinued form: SOLN, Sliding Scale, PRN Blood Glucose Results, Start date: 07/20/12 14:15:00, Duration: 30 day, Stop date: 08/19/12 14:14:00 levofloxacin 500 mg, 2 tab, Route: PO, Drug 07/17/2012 07/18/2012 Completed form: TAB, [id number], Dosing Weight 62.727, kg, Start date: 07/17/12 22:00:00, Duration: 2 day, Stop date: 07/18/12 9:00:00 Detrol LA 4 mg, 1 cap, Route: PO, Drug form: 07/18/2012 07/23/2012 Discontinued CAP, Daily, Dosing Weight 62.727, kg, Start date: 07/18/12 9:00:00, Duration: 30 day, Stop date: 08/16/12 9:00:00 naproxen 500 mg, 1 tab, Route: PO, Drug 07/17/2012 07/23/2012 Discontinued form: TAB, BID, Dosing Weight 62.727, kg, PRN For Pain, Start date: 07/17/12 21:34:00, Duration: 30 day, Stop date: 08/16/12 21:33:00 levothyroxine 50 microgram, 1 tab, Route: PO, 07/18/2012 07/23/2012 Discontinued Drug form: TAB, [id number], Dosing Weight 62.727, kg, Start date: 07/18/12 6:30:00, Duration: 30 day, Stop date: 08/16/12 6:30:00 isosorbide 30 mg, 1 tab, Route: PO, Drug form: 07/18/2012 07/23/2012 Discontinued mononitrate ERTAB, Daily, Dosing Weight 62.727, kg, Start date: 07/18/12 9:00:00, Duration: 30 day, Stop date: 08/16/12 9:00:00 hydrochlorothiazide- 1 tab, Route: PO, Drug Form: TAB, 07/18/2012 07/17/2012 Deleted losartan 12.5 mg-50 Dosing Weight 62.727, kg, Daily, mg oral tablet Start date: 07/18/12 9:00:00, Duration: 30 day, Stop date: 08/16/12 9:00:00 Vitamin B12 1,000 microgram, 1 mL, Route: IM, 07/17/2012 07/23/2012 Discontinued Drug form: INJ, Q30D, Dosing Weight 62.727, kg, Start date: 07/17/12 22:00:00, Duration: 30 day, Stop date: 08/16/12 9:00:00 NovoLog FlexPen 1 unit, 0.01 mL, Route: SUB-Q, Drug 07/20/2012 07/23/2012 Discontinued form: SOLN, Sliding Scale, PRN Blood Glucose Results, Start date: 07/20/12 14:15:00, Duration: 30 day, Stop date: 08/19/12 14:14:00 calcium-vitamin D 1 tab, Route: PO, Drug Form: TAB, 07/18/2012 07/23/2012 Discontinued 500 mg-200 intl Dosing Weight 62.727, kg, BID, units oral tablet Start date: 07/18/12 9:00:00, Duration: 30 day, Stop date: 08/16/12 17:00:00 aspirin 81 mg 81 mg, 1 tab, Route: PO, Drug form: 07/17/2012 07/23/2012 Discontinued tablet, enteric ECTAB, Daily, Dosing Weight 62.727, coated kg, Start date: 07/17/12 21:41:00, Duration: 30 day, Stop date: 08/16/12 9:00:00 phytonadione 10 mg, 1 mL, Route: SUB-Q, Drug 07/21/2012 07/23/2012 Completed form: INJ, Daily, Start date: 07/21/12 9:00:00, Duration: 3 day, Stop date: 07/23/12 9:00:00 predniSONE 60 mg, 3 tab, Route: PO, Drug form: 07/20/2012 07/23/2012 Discontinued TAB, Daily, Start date: 07/20/12 17:52:00, Duration: 30 day, Stop date: 08/19/12 9:00:00 predniSONE 20 mg 60 mg, 3 tab, PO, Daily, 120 tab, 07/23/2012 Ordered oral tablet Substitution Allowed, TAB pantoprazole 40 mg 40 mg, 1 tab, PO, Before Dinner, 30 07/23/2012 Ordered oral enteric coated tab, Substitution Allowed, ECTAB tablet tuberculin purified 5 unit, 0.1 mL, Route: INTRADERM, 07/17/2012 07/17/2012 Completed protein derivative Drug form: INJ, ONCE, Dosing Weight 62.727, kg, Start date: 07/17/12 21:22:00, Stop date: 07/17/12 21:22:00 glipiZIDE 5 mg oral 5 mg, 1 tab, PO, BID-Before Meals, 07/23/2012 Ordered tablet 60 tab, Substitution Allowed, TAB calcium carbonate 1,000 mg, 2 tab, CHEW, TID, PRN, 07/23/2012 Ordered 500 mg (200 mg 120 tab, Indigestion, Substitution elemental calcium) Allowed, CHEWTAB oral tablet naproxen 500 mg oral 500 mg, 1 tab, PO, BID, PRN, as 07/17/2012 Ordered tablet needed for pain, Substitution Allowed levofloxacin 500 mg 500 mg, 1 tab, PO, Q24H, 07/17/2012 07/23/2012 Discontinued oral tablet Substitution Allowed morphine Sulfate 3 mg, 1.5 mL, Route: IVP, Drug 07/19/2012 07/22/2012 Completed form: INJ, Q4H, Dosing Weight 62.7, kg, PRN Pain Score 4-6, Start date: 07/19/12 14:15:00, Duration: 3 day, Stop date: 07/22/12 14:14:00 potassium gluconate 595 mg, 1 tab, PO, Daily, 07/17/2012 07/17/2012 Completed 595 mg oral tablet Substitution Allowed calcium carbonate 1,000 mg, 2 tab, Route: CHEW, Drug 07/19/2012 07/19/2012 Deleted 500 mg (200 mg form: TAB, TID, Dosing Weight 62.7, elemental calcium) kg, PRN Indigestion, Start date: oral tablet 07/19/12 18:23:00, Stop date: 08/18/12 18:22:00 Protonix 40 mg, Route: IVP, Drug form: INJ, 07/19/2012 07/19/2012 Completed ONCE, Dosing Weight 62.7, kg, Start date: 07/19/12 18:22:00, Stop date: 07/19/12 18:22:00 Vitamin B12 1000 1,000 microgram, 1 mL, IM, Q30D, 07/17/2012 Ordered mcg/mL injectable Substitution Allowed solution hydrochlorothiazide- 1 tab, PO, Daily, Substitution 07/17/2012 Ordered losartan 12.5 mg-50 Allowed, Maintenance mg oral tablet isosorbide 30 mg, 1 tab, PO, Daily, 07/17/2012 Ordered mononitrate 30 mg Substitution Allowed oral tablet, extended release levothyroxine 50 mcg 50 microgram, 1 tab, PO, Daily, 07/17/2012 Ordered (0.05 mg) oral Substitution Allowed tablet Detrol LA 4 mg oral 4 mg, 1 cap, PO, Daily, 07/17/2012 Ordered capsule, extended Substitution Allowed release Caltrate 600 + D 1 tab, PO, BID, Substitution 07/17/2012 Ordered oral tablet Allowed, Maintenance aspirin 81 mg 81 mg, 1 tab, PO, Daily, 07/17/2012 Ordered tablet, enteric Substitution Allowed coated Protonix 40 mg, 1 tab, Route: PO, Drug form: 07/20/2012 07/23/2012 Discontinued ECTAB, Before Dinner, Dosing Weight 62.7, kg, Start date: 07/20/12 16:30:00, Duration: 30 day, Stop date: 08/18/12 16:30:00 Immunizations Vaccine Date Status tuberculin purified protein derivative 07/17/2012 Auth (Verified) Vital Signs Most recent to oldest [Reference Range]: 1 2 3 Height 157.4 cm (07/22/2012 06:01:00) 157.4 cm (07/21/2012 06:08:00) 157.48 cm (07/17/2012 18:44:00) Current Weight 61.864 kg (07/23/2012 06:21:00) 62.227 kg (07/22/2012 06:01:00) 62.074 kg (07/22/2012 04:52:00) Temperature Oral [96.4-99.1 DegF] 97.4 DegF (07/23/2012 11:15:00) 97.6 DegF (07/23/2012 07:15:00) 97.7 DegF (07/23/2012 03:40:00) Systolic Blood Pressure [90-140 mmHg] 122 mmHg (07/23/2012 11:15:00) 132 mmHg (07/23/2012 07:15:00) 118 mmHg (07/23/2012 03:40:00) Diastolic Blood Pressure [60-90 mmHg] 68 mmHg (07/23/2012 11:15:00) 75 mmHg (07/23/2012 07:15:00) 65 mmHg (07/23/2012 03:40:00) Respiratory Rate [14-20 BRMIN] 18 BRMIN (07/23/2012 11:15:00) 18 BRMIN (07/23/2012 07:15:00) 18 BRMIN (07/23/2012 03:40:00) Peripheral Pulse Rate [60-100 bpm] 83 bpm (07/23/2012 11:15:00) 60 bpm (07/23/2012 07:15:00) 66 bpm (07/23/2012 03:40:00) Weight 62.7 kg (07/17/2012 22:13:00) 62.727 kg (07/17/2012 18:44:00) Results BEDSIDE GLUCOSE TESTING Most recent to oldest [Reference Range]: 1 2 3 Gluc POC Lifscn [70-99 mg/dL] 314 mg/dL 1 *HI* (07/23/2012 11:14:00) 93 mg/dL 2 (07/23/2012 05:27:00) 290 mg/dL 3 *HI* (07/22/2012 16:46:00) Comment1 Notify RN/MD *NA* (07/23/2012 11:14:00) Notify RN/MD *NA* (07/23/2012 05:27:00) Assess patient *NA* (07/22/2012 16:46:00) Comment2 Notify RN/MD *NA* (07/22/2012 16:46:00) Notify RN/MD *NA* (07/22/2012 11:04:00) Notify RN/MD *NA* (07/21/2012 15:31:00) 1Interpretive Data: Upper Reportable Limit: 200 mg/dL. 2Interpretive Data: Upper Reportable Limit: 200 mg/dL. 3Interpretive Data: Upper Reportable Limit: 200 mg/dL. URINALYSIS Most recent to oldest [Reference Range]: 1 2 3 UA Turbidity [Clear] Slight *ABN* (07/17/2012 21:30:00) UA Color [Yellow] Yellow *NA* (07/17/2012 21:30:00) UA pH [5.0-8.0] 7.0 (07/17/2012 21:30:00) UA Spec Grav [<=1.030] 1.003 (07/17/2012 21:30:00) UA Glucose [Negative mg/dL] Negative mg/dL *NA* (07/17/2012 21:30:00) UA Blood [Negative] Negative (07/17/2012 21:30:00) UA Ketones [Negative mg/dL] Negative mg/dL *NA* (07/17/2012 21:30:00) UA Protein [Negative mg/dL] Negative mg/dL (07/17/2012 21:30:00) UA Urobilinogen [0.1-1.0 mg/dL] <=1.0 mg/dL *NA* (07/17/2012 21:30:00) UA Bili [Negative] Negative *NA* (07/17/2012 21:30:00) UA Leuk Est [Negative] Moderate *ABN* (07/17/2012 21:30:00) UA Nitrite [Negative] Negative (07/17/2012 21:30:00) UA WBC [0-5 /HPF] 7 /HPF *HI* (07/17/2012 21:30:00) UA RBC [0-2 /HPF] 1 /HPF (07/17/2012 21:30:00) UA Sq Epi [Few /LPF] Occasional /LPF *NA* (07/17/2012 21:30:00) CHEMISTRY Most recent to oldest [Reference Range]: 1 2 3 Sodium Lvl [135-145 mEq/L] 130 mEq/L *LOW* (07/17/2012 19:18:00) Potassium Lvl [3.5-5.1 mEq/L] 3.5 mEq/L (07/17/2012 19:18:00) Chloride Lvl [95-109 mEq/L] 97 mEq/L (07/17/2012 19:18:00) CO2 [24-32 mEq/L] 23 mEq/L *LOW* (07/17/2012 19:18:00) AGAP [10.0-20.0 mEq/L] 13.5 mEq/L (07/17/2012 19:18:00) Creatinine Lvl [0.5-1.4 mg/dL] 0.7 mg/dL (07/17/2012 19:18:00) eGFR 87 mL/min/1.73m2 4 *NA* (07/17/2012 19:18:00) BUN [7-22 mg/dL] 12 mg/dL (07/17/2012 19:18:00) B/C Ratio [6-25] 17 (07/17/2012 19:18:00) Glucose Lvl [70-99 mg/dL] 104 mg/dL 5 *HI* (07/17/2012 19:18:00) Total Protein [6.4-8.4 g/dL] 6.3 g/dL *LOW* (07/23/2012 05:30:00) 6.7 g/dL (07/22/2012 04:32:00) 7.9 g/dL (07/21/2012 05:57:00) Albumin Lvl [3.5-5.0 g/dL] 2.5 g/dL *LOW* (07/23/2012 05:30:00) 3.0 g/dL *LOW* (07/22/2012 04:32:00) 3.2 g/dL *LOW* (07/21/2012 05:57:00) Globulin [2.0-4.0 g/dL] 3.8 g/dL (07/23/2012 05:30:00) 3.7 g/dL (07/22/2012 04:32:00) 4.7 g/dL *HI* (07/21/2012 05:57:00) A/G Ratio [0.7-1.6] 0.7 (07/23/2012 05:30:00) 0.8 (07/22/2012 04:32:00) 0.7 (07/21/2012 05:57:00) Calcium Lvl [8.5-10.5 mg/dL] 8.9 mg/dL (07/17/2012 19:18:00) ALT [0-65 unit/L] 752 unit/L *HI* (07/23/2012 05:30:00) 992 unit/L *HI* (07/22/2012 04:32:00) 1418 unit/L *HI* (07/21/2012 05:57:00) AST [0-37 unit/L] 246 unit/L *HI* (07/23/2012 05:30:00) 324 unit/L *HI* (07/22/2012 04:32:00) 671 unit/L *HI* (07/21/2012 05:57:00) GGT [5-85 unit/L] 747 unit/L *HI* (07/17/2012 19:18:00) Alk Phos [39-136 unit/L] 252 unit/L *HI* (07/23/2012 05:30:00) 323 unit/L *HI* (07/22/2012 04:32:00) 371 unit/L *HI* (07/21/2012 05:57:00) Bili Total [0.2-1.3 mg/dL] 3.7 mg/dL *HI* (07/23/2012 05:30:00) 5.9 mg/dL *HI* (07/22/2012 04:32:00) 8.0 mg/dL *HI* (07/21/2012 05:57:00) Bili Direct [0.0-0.3 mg/dL] 2.8 mg/dL *HI* (07/23/2012 05:30:00) 4.6 mg/dL *HI* (07/22/2012 04:32:00) 6.5 mg/dL *HI* (07/21/2012 05:57:00) Bili Indirect [0.0-1.0 mg/dL] 0.9 mg/dL (07/23/2012 05:30:00) 1.3 mg/dL *HI* (07/22/2012 04:32:00) 1.5 mg/dL *HI* (07/21/2012 05:57:00) Lipase Lvl [73-393 unit/L] 112 unit/L (07/17/2012 19:18:00) Acetaminoph Lvl [10-20] <2 (07/18/2012 04:27:35) 4Result Comment: The eGFR is calculated using the CKD-EPI formula. In most young, healthy individuals the eGFR will be >90 mL/min/1.73m2. The eGFR declines with age. An eGFR of 60-89 may be normal in some populations, particularly the elderly, for whom the CKD-EPI formula has not been extensively validated. Use of the eGFR is not recommended in the following populations: Individuals with unstable creatinine concentrations, including patients and those with serious co-morbid conditions. Patients with extremes in muscle mass or diet. The data above are obtained from the National Kidney Disease Education Program ( NKDEP) which additionally recommends that when the eGFR is used in patients with extremes of body mass index for purposes of drug dosing, the eGFR should be mul tiplied by the estimated BMI. 5Interpretive Data: Adult reference range values reflect the clinical guidelines of the [place] [employer]. HEMATOLOGY Most recent to oldest [Reference Range]: 1 2 3 WBC [3.7-10.4 K/CMM] 11.4 K/CMM *HI* (07/17/2012 19:18:00) RBC [4.20-5.40 M/CMM] 3.89 M/CMM *LOW* (07/17/2012 19:18:00) Hgb [12.0-16.0 g/dL] 12.5 g/dL (07/17/2012 19:18:00) Hct [36.0-48.0 %] 36.7 % (07/17/2012 19:18:00) MCV [81.0-99.0 fL] 94.2 fL (07/17/2012 19:18:00) MCH [27.0-31.0 pg] 32.0 pg *HI* (07/17/2012 19:18:00) MCHC [32.0-36.0 g/dL] 34.0 g/dL (07/17/2012 19:18:00) RDW [11.5-14.5 %] 16.8 % *HI* (07/17/2012 19:18:00) Platelet [133-450 K/CMM] 226 K/CMM (07/17/2012 19:18:00) MPV [7.4-10.4 fL] 8.6 fL (07/17/2012 19:18:00) Segs [45.0-75.0 %] 63.4 % (07/17/2012 19:18:00) Lymphocytes [20.0-40.0 %] 19.2 % *LOW* (07/17/2012 19:18:00) Monocytes [2.0-12.0 %] 16.6 % *HI* (07/17/2012 19:18:00) Eosinophils [0.0-4.0 %] 0.6 % (07/17/2012 19:18:00) Basophils [0.0-1.0 %] 0.2 % (07/17/2012 19:18:00) Segs-Bands # [1.5-8.1 K/CMM] 7.2 K/CMM (07/17/2012 19:18:00) Lymphocytes # [1.0-5.5 K/CMM] 2.2 K/CMM (07/17/2012 19:18:00) Monocytes # [0.0-0.8 K/CMM] 1.9 K/CMM *HI* (07/17/2012 19:18:00) Eosinophils # [0.0-0.5 K/CMM] 0.1 K/CMM (07/17/2012 19:18:00) Basophils # [0.0-0.2 K/CMM] 0.0 K/CMM (07/17/2012 19:18:00) PT [12.0-14.7 seconds] 17.4 seconds *HI* (07/23/2012 05:30:00) 16.2 seconds *HI* (07/22/2012 04:32:00) 17.0 seconds *HI* (07/21/2012 05:57:00) INR [0.85-1.17] 1.41 6 *HI* (07/23/2012 05:30:00) 1.28 7 *HI* (07/22/2012 04:32:00) 1.37 8 *HI* (07/21/2012 05:57:00) PTT [22.9-35.8 seconds] 31.7 seconds 9 (07/22/2012 04:32:00) 33.2 seconds 10 (07/21/2012 05:57:00) 38.4 seconds 11 *HI* (07/20/2012 04:21:00) 6Interpretive Data: RECOMMENDED RANGES FOR PROTIME INR: 2.0-3.0 for most medical and surgical thromboembolic states. 2.5-3.5 for artificial heart valves and recurrent embolism. INR SHOULD BE USED ONLY FOR PATIENTS ON STABLE ANTICOAGULANT THERAPY. 7Interpretive Data: RECOMMENDED RANGES FOR PROTIME INR: 2.0-3.0 for most medical and surgical thromboembolic states. 2.5-3.5 for artificial heart valves and recurrent embolism. INR SHOULD BE USED ONLY FOR PATIENTS ON STABLE ANTICOAGULANT THERAPY. 8Interpretive Data: RECOMMENDED RANGES FOR PROTIME INR: 2.0-3.0 for most medical and surgical thromboembolic states. 2.5-3.5 for artificial heart valves and recurrent embolism. INR SHOULD BE USED ONLY FOR PATIENTS ON STABLE ANTICOAGULANT THERAPY. 9Interpretive Data: Heparin Therapeutic Range: 57 - 92 Seconds 10Interpretive Data: Heparin Therapeutic Range: 57 - 92 Seconds 11Interpretive Data: Heparin Therapeutic Range: 57 - 92 Seconds IMMUNOLOGY Most recent to oldest [Reference Range]: 1 2 3 A[facility]A [Negative] Positive *ABN* (07/19/2012 04:03:00) [facility] Titer [Negative] 1:160 *ABN* (07/19/2012 04:03:00) [facility] Interp Pattern appears Homogeneous Marked Cytoplamic staining present. *NA* (07/19/2012 04:03:00) DNA Ab (DS) [Negative] Positive *ABN* (07/19/2012 04:03:00) DNA DS Ttr 1:20 *ABN* (07/19/2012 04:03:00) Sm Ab [Negative] Negative (07/19/2012 04:03:00) [employer] Ab [Negative] Negative (07/19/2012 04:03:00) SS-A (Ro) Ab [Negative] Negative (07/19/2012 04:03:00) SS-B ([place]) Ab [Negative] Negative (07/19/2012 04:03:00) AMA Ab Scr [Negative] Negative (07/19/2012 04:03:00) SMA Screen [Negative] Positive *ABN* (07/19/2012 04:03:00) SMA Titer [Negative] 1:80 *ABN* (07/19/2012 04:03:00) Ceruloplasmin [20-60 mg/dL] 44 mg/dL (07/19/2012 04:03:00) A-1-AT [83-199 mg/dL] 204 mg/dL *HI* (07/19/2012 04:03:00) CMV IgG [Non Reactive] Reactive *ABN* (07/19/2012 04:03:00) CMV IgM 0.4 S/CO Ratio 12 *NA* (07/19/2012 04:03:00) EBV VCA IgG [<=0.8 AI] >8.0 AI 13 *HI* (07/19/2012 04:03:00) EBV VCA IgM [<=0.8 AI] 0.4 AI 14 (07/19/2012 04:03:00) Hep Bs Ag [Negative] Negative *NA* (07/17/2012 19:18:00) Hep B Core IgM [Negative] Negative *NA* (07/17/2012 19:18:00) Hep A IgM [Negative] Negative *NA* (07/17/2012 19:18:00) Hep C Ab [Negative] Negative *NA* (07/17/2012 19:18:00) 12Interpretive Data: Reference Ranges: Non-reactive: <0.9 S/CO Ratio Indeterminate: 0.9 - 1.0 S/CO Ratio Reactive: >=1.1 S/CO Ratio 13Interpretive Data: Antibody Index (AI) Results Interpretation ------- 0.0-0.8 Negative No detectable IgG Antibody. 0.9-1.0 Equivocal Repeat testing suggested in 10-14 days. >=1.10 Positive Indicates presence of detectable IgG Antibody. 14Interpretive Data: Antibody Index (AI) Results Interpretation ------- 0.0-0.8 Negative No detectable IgM Antibody. 0.9-1.0 Equivocal Repeat testing suggested in 10-14 days. >=1.10 Positive Significant level of detectable IgM Antibody, indicative of current or recent infection. Microbiology Reports PROCEDURE:Culture: Urine STATUS: Auth (Verified) BODY SITE: COLLECTED DATE/TIME: 07/17/2012 21:30:00 SOURCE: Urine, Clean Catch FREE TEXT SOURCE: FINAL REPORTS Final Report <10,000 CFU/mL Skin [facility] PRELIMINARY REPORTS Preliminary Report No Growth; Holding Procedures Procedures Date Related Diagnosis Appendectomy Cholecystectomy Tonsillectomy Total hysterectomy
--- OUTSIDE RECORDS SUMMARY | 2018-08-19 12:33 | XMS REPORT | CCD ---
Author Author Auto Generated Organization [facility] Address Unknown Phone Unavailable Care Team Providers Care Digital Ad Trafficker Name Role Phone Zay Troncoso RP Allergies, Adverse Reactions, Alerts Substance Reaction Status codeine Active Demerol Active Problem List Condition Effective Dates Status Angina Resolved Benign hypertension Resolved H/O: hypothyroidism Resolved H/O: rheumatoid arthritis Resolved Hypercholesterolemia Resolved Liver enzymes abnormal Resolved Nausea Resolved UTI (urinary tract infection) Resolved Medications Medication Instructions Start Date End Date Status tuberculin purified 5 unit, 0.1 mL, Route: INTRADERM, 07/17/2012 07/17/2012 Completed protein derivative Drug form: INJ, ONCE, Dosing Weight 62.727, kg, Start date: 07/17/12 21:22:00, Stop date: 07/17/12 21:22:00 Immunizations Vaccine Date Status tuberculin purified protein derivative 07/17/2012 Auth (Verified)
--- OUTSIDE RECORDS SUMMARY | 2018-08-19 12:34 | XMS REPORT | CCD ---
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 Name Role Phone Zay Troncoso CP Allergies, Adverse Reactions, Alerts Substance Reaction Status codeine Active Demerol Active Problem List Condition Effective Dates Status Angina Resolved Benign hypertension Resolved H/O: hypothyroidism Active H/O: rheumatoid arthritis Active Hypercholesterolemia Active Liver enzymes abnormal Resolved Nausea Resolved UTI (urinary tract infection) Resolved Medications Medication Instructions Start Date End Date Status calcium-vitamin D 1 tab, Route: PO, Drug Form: TAB, 12/12/2012 12/14/2012 Discontinued 500 mg-200 intl BID, Start date: 12/12/12 9:00:00, units oral tablet Duration: 30 day, Stop date: 01/10/13 17:00:00(Same As: Ubaldo-D, OsCal-D, Oyster Calcium) Vitamin B12 1,000 microgram, 1 mL, Route: IM, 12/13/2012 12/14/2012 Discontinued Drug form: INJ, Q30D, Start date: 12/13/12 13:00:00, Duration: 30 day, Stop date: 01/12/13 9:00:00(Same As: Vitamin B12) glipiZIDE 5 mg oral 2.5 mg, 0.5 tab, PO, Before 12/11/2012 Ordered tablet Breakfast, Substitution Allowed pantoprazole 40 mg 40 mg, 1 tab, PO, Before Dinner, 12/11/2012 Ordered oral enteric coated Substitution Allowed tablet Lovenox 40 mg, 0.4 mL, Route: SUB-Q, Drug 12/13/2012 12/14/2012 Discontinued form: INJ, [id number], Dosing Weight 67.955, kg, Start date: 12/13/12 12:00:00, Duration: 30 day, Stop date: 01/11/13 12:00:00(Same as: Lovenox) Fioricet oral tablet 1 tab, PO, Q4H, PRN, as needed for 12/11/2012 Ordered headache, Substitution Allowed, Maintenance potassium gluconate 595 mg, 1 tab, PO, Daily, 12/11/2012 Ordered 595 mg oral tablet Substitution Allowed insulin aspart 1 unit, 0.01 mL, Route: SUB-Q, Drug 12/11/2012 12/14/2012 Discontinued form: SOLN, TID-Before Meals, Dosing Weight 68.182, kg, PRN Blood Glucose Results, Start date: 12/11/12 22:47:00, Duration: 30 day, Stop date: 01/10/13 22:46:00Roll in palms of hands gently; Do not shake vigorously. (Same as: NovoLog)"single patient use only" Stable for 28 days at room temperature.Expires in days from Date insulin aspart 4 unit, 0.04 mL, Route: SUB-Q, Drug 12/11/2012 12/14/2012 Discontinued form: SOLN, TID-Before Meals, Dosing Weight 68.182, kg, PRN Blood Glucose Results, Start date: 12/11/12 22:47:00, Duration: 30 day, Stop date: 01/10/13 22:46:00Roll in palms of hands gently; Do not shake vigorously. (Same as: NovoLog)"single patient use only" Stable for 28 days at room temperature.Expires in days from Date insulin aspart 3 unit, 0.03 mL, Route: SUB-Q, Drug 12/11/2012 12/14/2012 Discontinued form: SOLN, TID-Before Meals, Dosing Weight 68.182, kg, PRN Blood Glucose Results, Start date: 12/11/12 22:47:00, Duration: 30 day, Stop date: 01/10/13 22:46:00Roll in palms of hands gently; Do not shake vigorously. (Same as: NovoLog)"single patient use only" Stable for 28 days at room temperature.Expires in days from Date insulin aspart 2 unit, 0.02 mL, Route: SUB-Q, Drug 12/11/2012 12/14/2012 Discontinued form: SOLN, TID-Before Meals, Dosing Weight 68.182, kg, PRN Blood Glucose Results, Start date: 12/11/12 22:47:00, Duration: 30 day, Stop date: 01/10/13 22:46:00Roll in palms of hands gently; Do not shake vigorously. (Same as: NovoLog)"single patient use only" Stable for 28 days at room temperature.Expires in days from Date insulin aspart 5 unit, 0.05 mL, Route: SUB-Q, Drug 12/11/2012 12/14/2012 Discontinued form: SOLN, TID-Before Meals, Dosing Weight 68.182, kg, PRN Blood Glucose Results, Start date: 12/11/12 22:47:00, Duration: 30 day, Stop date: 01/10/13 22:46:00Roll in palms of hands gently; Do not shake vigorously. (Same as: NovoLog)"single patient use only" Stable for 28 days at room temperature.Expires in days from Date glucagon 1 mg, Route: IM, Drug form: 12/11/2012 12/14/2012 Discontinued PDR/INJ, PRN, Dosing Weight 68.182, kg, PRN Blood Glucose Results, Start date: 12/11/12 22:47:00, Duration: 30 day, Stop date: 01/10/13 22:46:00 Dextrose 50% Syringe 25 gm, 50 mL, Route: IVP, Drug 12/11/2012 12/14/2012 Discontinued Form: INJ, Dosing Weight 68.182, kg, PRN, PRN Blood Glucose Results, Start date: 12/11/12 22:47:00, Duration: 30 day, Stop date: 01/10/13 22:46:00 Dextrose 50% Syringe 12.5 gm, 25 mL, Route: IVP, Drug 12/11/2012 12/14/2012 Discontinued Form: INJ, Dosing Weight 68.182, kg, PRN, PRN Blood Glucose Results, Start date: 12/11/12 22:47:00, Duration: 30 day, Stop date: 01/10/13 22:46:00 Slow Release Iron 45 45 mg, 1 tab, Daily, Substitution 12/11/2012 Ordered mg oral tablet, Allowed extended release Detrol LA 4 mg, 1 cap, Route: PO, Drug form: 12/12/2012 12/14/2012 Discontinued CAP, Daily, Dosing Weight 68.182, kg, Start date: 12/12/12 9:00:00, Duration: 30 day, Stop date: 01/10/13 9:00:00Do Not Crush. (Same As: Detrol LA) predniSONE 10 mg 10 mg, 1 tab, PO, QSun, 12/11/2012 12/14/2012 Discontinued oral tablet Substitution Allowed predniSONE 20 mg 20 mg, 1 tab, PO, TID, 30 tab, 12/14/2012 Ordered oral tablet Substitution Allowed, TAB predniSONE 10 mg 10 mg, 1 tab, PO, Q-M-W-F, 12/11/2012 12/14/2012 Discontinued oral tablet Substitution Allowed hydrochlorothiazide- 1 tab, Route: PO, Drug Form: TAB, 12/12/2012 12/12/2012 Deleted losartan 12.5 mg-50 Dosing Weight 67.955, kg, Daily, mg oral tablet Start date: 12/12/12 9:00:00, Duration: 30 day, Stop date: 01/10/13 9:00:00 Sodium Chloride 0.9% 1,000 mL, Rate: 125 ml/hr, Infuse 12/11/2012 12/13/2012 Discontinued IV 1,000 mL over: 8 hr, Route: IV, Dosing Weight 68.182 kg, Total Volume: 1,000, Start date: 12/11/12 22:47:00, Duration: 30 day, Stop date: 01/10/13 22:46:00 Saline Flush 0.9% 5 ml, Route: IVP, Drug Form: INJ, 12/11/2012 12/14/2012 Discontinued Dosing Weight 68.182, kg, PRN, PRN Line Flush, Start date: 12/11/12 22:47:00, Duration: 30 day, Stop date: 01/10/13 22:46:00(Same as: BD Posiflush) ondansetron 4 mg, 2 mL, Route: IVP, Drug form: 12/11/2012 12/14/2012 Discontinued INJ, Q8H, Dosing Weight 68.182, kg, PRN Nausea & Vomiting, Start date: 12/11/12 22:47:00, Duration: 30 day, Stop date: 01/10/13 22:46:00(Same as: Zofran) docusate 100 mg, 1 cap, Route: PO, Drug 12/11/2012 12/14/2012 Discontinued form: CAP, BID, Dosing Weight 68.182, kg, PRN Constipation, Start date: 12/11/12 22:47:00, Duration: 30 day, Stop date: 01/10/13 22:46:00(Same as: Colace) (Do Not Crush) pantoprazole 40 mg, 1 tab, Route: PO, Drug form: 12/12/2012 12/14/2012 Discontinued ECTAB, Before Dinner, Dosing Weight 68.182, kg, Start date: 12/12/12 16:30:00, Duration: 30 day, Stop date: 01/10/13 16:30:00Tablet should not be chewed or crushed.(Same as: Protonix) SoluMedrol 125 mg, 2 mL, Route: IVP, Drug 12/12/2012 12/14/2012 Discontinued form: INJ, Q6H, Dosing Weight 68.182, kg, Start date: 12/12/12 0:00:00, Duration: 30 day, Stop date: 01/10/13 18:00:00(Same as:Solu-Medrol, A-Methapred) ceftriaxone + Sodium 1 gm, Route: IVPB, [id number], Dosing 12/11/2012 12/13/2012 Discontinued Chloride 0.9% IV 100 Weight 68.182, kg, Priority: STAT, mL Start date: 12/11/12 22:47:00, Duration: 30 day, Stop date: 01/09/13 22:47:00(Same As: Rocephin). Use with 100ml NS mini-bag PLUS and infuse over 30 min levothyroxine 50 microgram, 1 tab, Route: PO, 12/12/2012 12/14/2012 Discontinued Drug form: TAB, [id number], Dosing Weight 68.182, kg, Start date: 12/12/12 6:30:00, Duration: 30 day, Stop date: 01/10/13 6:30:00Take 1 hour before or 2 hours after meal; Enteral feeds may interefere with the absorption of this medication.(Same as:Levothroid, Synthroid) isosorbide 30 mg, 1 tab, Route: PO, Drug form: 12/12/2012 12/14/2012 Discontinued mononitrate ERTAB, Daily, Dosing Weight 68.182, kg, Start date: 12/12/12 9:00:00, Duration: 30 day, Stop date: 01/10/13 9:00:00(Same as:Imdur)"Do Not Crush" Take on empty stomach/ full glass of water. Do not crush tuberculin purified 5 unit, 0.1 mL, Route: INTRADERM, 07/17/2012 07/17/2012 Completed protein derivative Drug form: INJ, ONCE, Dosing Weight 62.727, kg, Start date: 07/17/12 21:22:00, Stop date: 07/17/12 21:22:00LOT#: EXP: (Same As: Aplisol, Tubersol) calcium-vitamin D 1 tab, Route: PO, Drug Form: TAB, 12/12/2012 12/12/2012 Deleted 600 mg-200 units Dosing Weight 67.955, kg, BID, oral tablet Start date: 12/12/12 9:00:00, Duration: 30 day, Stop date: 01/10/13 17:00:00 Cozaar 50 mg, 2 tab, Route: PO, Drug form: 12/12/2012 12/14/2012 Discontinued TAB, Daily, Start date: 12/12/12 9:00:00, Duration: 30 day, Stop date: 01/10/13 9:00:00(Same as: Cozaar) predniSONE 20 mg, 1 tab, Route: PO, Drug form: 12/14/2012 12/14/2012 Discontinued TAB, TID, Dosing Weight 67.955, kg, Start date: 12/14/12 13:00:00, Duration: 1 week, Stop date: 12/21/12 9:00:00Take with food. Fioricet oral tablet 1 tab, Route: PO, Drug Form: TAB, 12/12/2012 12/14/2012 Discontinued Dosing Weight 67.955, kg, Q4H, PRN as needed for headache, Start date: 12/12/12 8:28:00, Duration: 30 day, Stop date: 01/11/13 8:27:00(cgjngfnidxvbl-wryvrxflfh-[id number] ffeine 325-50-40mg) Do not exceed 4 gm/day of acetaminophen. (Same as: Esgic, Fioricet) Microzide 12.5 mg, 1 cap, Route: PO, Drug 12/12/2012 12/14/2012 Discontinued form: CAP, Daily, Start date: 12/12/12 9:00:00, Duration: 30 day, Stop date: 01/10/13 9:00:00(Same as: Microzide) With food. aspirin 81 mg 81 mg, 1 tab, Route: PO, Drug form: 12/12/2012 12/14/2012 Discontinued tablet, enteric ECTAB, Daily, Dosing Weight 68.182, coated kg, Start date: 12/12/12 9:00:00, Duration: 30 day, Stop date: 01/10/13 9:00:00Do not crush or chew.(Same As: Ecotrin) Immunizations Vaccine Date Status tuberculin purified protein derivative 07/17/2012 Auth (Verified) Vital Signs Most recent to oldest [Reference Range]: 1 2 3 Height 154.94 cm (12/12/2012 00:01:00) 154.94 cm (12/11/2012 16:23:00) Temperature Oral [96.4-99.1 DegF] 97.7 DegF (12/14/2012 12:00:00) 98.5 DegF (12/14/2012 08:00:00) 98.3 DegF (12/14/2012 04:00:00) Systolic Blood Pressure [90-140 mmHg] 150 mmHg *HI* (12/14/2012 12:00:00) 138 mmHg (12/14/2012 08:00:00) 120 mmHg (12/14/2012 04:00:00) Diastolic Blood Pressure [60-90 mmHg] 68 mmHg (12/14/2012 12:00:00) 65 mmHg (12/14/2012 08:00:00) 62 mmHg (12/14/2012 04:00:00) Respiratory Rate [14-20 BRMIN] 15 BRMIN (12/14/2012 12:00:00) 16 BRMIN (12/14/2012 08:00:00) 16 BRMIN (12/14/2012 04:00:00) Peripheral Pulse Rate [60-100 bpm] 62 bpm (12/14/2012 12:00:00) 77 bpm (12/14/2012 08:00:00) 79 bpm (12/14/2012 04:00:00) Weight 67.955 kg (12/12/2012 00:01:00) 68.182 kg (12/11/2012 16:23:00) Results BEDSIDE GLUCOSE TESTING Most recent to oldest [Reference Range]: 1 2 3 Glucose POC [70-99 mg/dL] 223 mg/dL 1 *HI* (12/14/2012 11:29:00) 214 mg/dL 2 *HI* (12/14/2012 05:50:00) 161 mg/dL 3 *HI* (12/13/2012 21:00:00) Gluc POC Comment 1 Notified RN/MD *NA* (12/14/2012 11:29:00) Notified RN/MD *NA* (12/13/2012 15:08:00) Notified RN/MD *NA* (12/13/2012 11:21:00) 1Interpretive Data: Upper Reportable Limit: 200 mg/dL. 2Interpretive Data: Upper Reportable Limit: 200 mg/dL. 3Interpretive Data: Upper Reportable Limit: 200 mg/dL. REFERENCE LAB RESULTS Most recent to oldest [Reference Range]: 1 2 3 [facility] REPORT 4 *NA* (12/12/2012 16:15:00) 4Result Comment: TEST NAME RESULT FLAG UNITS REF RANGE TPMT Activity 21 UNITS:nmol/hr/mL RBC Reference Range for TPMT Activity: >12 Normal 4-12 Heterozygote or low metabolizer <4 Homozygote Deficient Range Test Performed at: [facility] [address] [place] [address] Susana Mejia MD, PhD URINALYSIS Most recent to oldest [Reference Range]: 1 2 3 UA Turbidity [Clear] Clear (12/11/2012 17:15:00) UA Color Mireya *NA* (12/11/2012 17:15:00) UA pH [5.0-8.0] 6.0 (12/11/2012 17:15:00) UA Spec Grav [<=1.030] 1.006 (12/11/2012 17:15:00) UA Glucose [Negative mg/dL] Negative mg/dL *NA* (12/11/2012 17:15:00) UA Blood [Negative] Negative (12/11/2012 17:15:00) UA Ketones [Negative mg/dL] Negative mg/dL *NA* (12/11/2012 17:15:00) UA Protein [Negative mg/dL] Negative mg/dL (12/11/2012 17:15:00) UA Urobilinogen [0.1-1.0 mg/dL] 2.0 mg/dL *HI* (12/11/2012 17:15:00) UA Bili [Negative] Negative *NA* (12/11/2012 17:15:00) UA Leuk Est [Negative] Moderate *ABN* (12/11/2012 17:15:00) UA Nitrite [Negative] Negative (12/11/2012 17:15:00) UA WBC [0-5 /HPF] 3 /HPF (12/11/2012 17:15:00) UA RBC [0-2 /HPF] 1 /HPF (12/11/2012 17:15:00) UA Bacteria [None Seen /HPF] Occasional /HPF *NA* (12/11/2012 17:15:00) UA Sq Epi [Few /LPF] Occasional /LPF *NA* (12/11/2012 17:15:00) CHEMISTRY Most recent to oldest [Reference Range]: 1 2 3 Sodium Lvl [135-145 mEq/L] 141 mEq/L (12/13/2012 06:11:00) 139 mEq/L (12/12/2012 07:33:00) 137 mEq/L (12/11/2012 17:15:00) Potassium Lvl [3.5-5.1 mEq/L] 3.2 mEq/L *LOW* (12/13/2012:11:00) 4.0 mEq/L (12/12/2012:33:00) 3.6 mEq/L (12/11/2012 17:15:00) Chloride Lvl [95-109 mEq/L] 108 mEq/L (12/13/2012::00) 107 mEq/L (12/12/2012:33:00) 103 mEq/L (12/11/2012 17:15:00) CO2 [24-32 mEq/L] 25 mEq/L (12/13/2012::00) 22 mEq/L *LOW* (12/12/2012::00) 24 mEq/L (12/11/2012 17:15:00) AGAP [10.0-20.0 mEq/L] 11.2 mEq/L (12/13/2012::00) 14.0 mEq/L (12/12/2012:33:00) 13.6 mEq/L (12/11/2012:15:00) Creatinine Lvl [0.5-1.4 mg/dL] 0.7 mg/dL (12/13/2012::00) 0.6 mg/dL (12/12/2012:33:00) 0.7 mg/dL (12/11/2012 17:15:00) eGFR 87 mL/min/1.73m2 5 *NA* (12/13/2012::00) 91 mL/min/1.73m2 6 *NA* (12/12/2012:33:00) 87 mL/min/1.73m2 7 *NA* (12/11/2012 17:15:00) BUN [7-22 mg/dL] 18 mg/dL (12/13/2012::00) 15 mg/dL (12/12/2012:33:00) 19 mg/dL (12/11/2012 17:15:00) B/C Ratio [6-25] 26 *HI* (12/13/2012:11:00) 25 (12/12/2012:33:00) 27 *HI* (12/11/2012 17:15:00) Glucose Lvl [70-99 mg/dL] 174 mg/dL 8 *HI* (12/13/2012 06:11:00) 155 mg/dL 9 *HI* (12/12/2012 07:33:00) 171 mg/dL 10 *HI* (12/11/2012 17:15:00) Total Protein [6.4-8.4 g/dL] 6.2 g/dL *LOW* (12/14/2012 06:06:00) 7.3 g/dL (12/13/2012 06:11:00) 7.1 g/dL (12/13/2012 06:11:00) Albumin Lvl [3.5-5.0 g/dL] 2.3 g/dL *LOW* (12/14/2012 06:06:00) 2.6 g/dL *LOW* (12/13/2012 06:11:00) 2.6 g/dL *LOW* (12/13/2012 06:11:00) Globulin [2.0-4.0 g/dL] 3.9 g/dL (12/14/2012 06:06:00) 4.7 g/dL *HI* (12/13/2012 06:11:00) 4.5 g/dL *HI* (12/13/2012 06:11:00) A/G Ratio [0.7-1.6] 0.6 *LOW* (12/14/2012 06:06:00) 0.6 *LOW* (12/13/2012 06:11:00) 0.6 *LOW* (12/13/2012 06:11:00) Calcium Lvl [8.5-10.5 mg/dL] 8.2 mg/dL *LOW* (12/13/2012 06:11:00) 8.4 mg/dL *LOW* (12/12/2012 07:33:00) 8.7 mg/dL (12/11/2012 17:15:00) Phosphorus [2.5-4.5 mg/dL] 2.6 mg/dL (12/12/2012 07:33:00) Magnesium Lvl [1.8-2.4 mg/dL] 1.7 mg/dL *LOW* (12/12/2012 07:33:00) ALT [0-65 unit/L] 560 unit/L *HI* (12/14/2012 06:06:00) 755 unit/L *HI* (12/13/2012 06:11:00) 748 unit/L *HI* (12/13/2012 06:11:00) AST [0-37 unit/L] 132 unit/L *HI* (12/14/2012 06:06:00) 251 unit/L *HI* (12/13/2012 06:11:00) 249 unit/L *HI* (12/13/2012 06:11:00) Alk Phos [39-136 unit/L] 203 unit/L *HI* (12/14/2012 06:06:00) 248 unit/L *HI* (12/13/2012 06:11:00) 232 unit/L *HI* (12/13/2012 06:11:00) Bili Total [0.2-1.3 mg/dL] 3.1 mg/dL *HI* (12/14/2012 06:06:00) 4.5 mg/dL *HI* (12/13/2012 06:11:00) 4.6 mg/dL *HI* (12/13/2012 06:11:00) Bili Direct [0.0-0.3 mg/dL] 2.5 mg/dL *HI* (12/14/2012 06:06:00) 3.8 mg/dL *HI* (12/13/2012 06:11:00) 6.3 mg/dL *HI* (12/11/2012 17:15:00) Bili Indirect [0.0-1.0 mg/dL] 0.6 mg/dL (12/14/2012 06:06:00) 0.7 mg/dL (12/13/2012 06:11:00) 1.3 mg/dL *HI* (12/11/2012 17:15:00) 5Result Comment: The eGFR is calculated using the [...] be mul tiplied by the estimated BMI. 6Result Comment: The eGFR is calculated using the [...] be mul tiplied by the estimated BMI. 7Result Comment: The eGFR is calculated using the [...] be mul tiplied by the estimated BMI. 8Interpretive Data: Adult reference range values reflect the clinical guidelines of the [place] [employer]. 9Interpretive Data: Adult reference range values reflect the clinical guidelines of the [place] [employer]. 10Interpretive Data: Adult reference range values reflect the clinical guidelines of the [place] [employer]. HEMATOLOGY Most recent to oldest [Reference Range]: 1 2 3 WBC [3.7-10.4 K/CMM] 10.8 K/CMM *HI* (12/11/2012 17:15:00) RBC [4.20-5.40 M/CMM] 3.58 M/CMM *LOW* (12/11/2012 17:15:00) Hgb [12.0-16.0 g/dL] 11.1 g/dL *LOW* (12/11/2012:15:00) Hct [36.0-48.0 %] 33.2 % *LOW* (12/11/2012:15:00) MCV [81.0-99.0 fL] 92.8 fL (12/11/2012:15:00) MCH [27.0-31.0 pg] 31.1 pg *HI* (12/11/2012:15:00) MCHC [32.0-36.0 g/dL] 33.5 g/dL (12/11/2012:15:00) RDW [11.5-14.5 %] 18.6 % *HI* (12/11/2012 17:15:00) Platelet [133-450 K/CMM] 237 K/CMM (12/11/2012 17:15:00) MPV [7.4-10.4 fL] 9.5 fL (12/11/2012 17:15:00) Segs [45.0-75.0 %] 63.0 % (12/11/2012:15:00) Bands [0.0-11.0 %] 1.0 % (12/11/2012 17:15:00) Lymphocytes [20.0-40.0 %] 25.0 % (12/11/2012 17:15:00) Monocytes [2.0-12.0 %] 10.0 % (12/11/2012:15:00) Eosinophils [0.0-4.0 %] 1.0 % (12/11/2012 17:15:00) Segs-Bands # [1.5-8.1 K/CMM] 6.9 K/CMM (12/11/2012 17:15:00) Lymphocytes # [1.0-5.5 K/CMM] 2.7 K/CMM (12/11/2012 17:15:00) Monocytes # [0.0-0.8 K/CMM] 1.1 K/CMM *HI* (12/11/2012 17:15:00) Eosinophils # [0.0-0.5 K/CMM] 0.1 K/CMM (12/11/2012 17:15:00) Hypochrom [None Seen] Slight (12/11/2012 17:15:00) Target Cell [None Seen] Moderate *ABN* (12/11/2012 17:15:00) Large Plt [None Seen] Slight *ABN* (12/11/2012 17:15:00) PT [12.0-14.7 seconds] 16.3 seconds *HI* (12/11/2012 17:15:00) INR [0.85-1.17] 1.33 11 *HI* (12/11/2012 17:15:00) PTT [22.9-35.8 seconds] 34.0 seconds 12 (12/11/2012 17:15:00) 11Interpretive Data: RECOMMENDED RANGES FOR PROTIME INR: 2.0-3.0 for most medical and surgical thromboembolic states. 2.5-3.5 for artificial heart valves and recurrent embolism. INR SHOULD BE USED ONLY FOR PATIENTS ON STABLE ANTICOAGULANT THERAPY. 12Interpretive Data: Heparin Therapeutic Range: 57 - 92 Seconds Microbiology Reports PROCEDURE:Culture: Urine STATUS: Auth (Verified) BODY SITE: COLLECTED DATE/TIME: 12/11/2012 17:45:00 SOURCE: Urine, Clean Catch FREE TEXT SOURCE: FINAL REPORTS Final Report <10,000 CFU/mL [facility] PRELIMINARY REPORTS Preliminary Report No Growth; Holding Procedures Procedures Date Related Diagnosis Breast biopsy and related procedures Cataract surgery
--- OUTSIDE RECORDS SUMMARY | 2018-08-19 12:34 | XMS REPORT | CCD ---
Author Author Auto Generated Organization [facility] Address Unknown Phone Unavailable Care Team Providers Care Lumber Mover Name Role Phone Nito Troncoso RP Allergies, Adverse Reactions, Alerts Substance [...]
--- OUTSIDE RECORDS SUMMARY | 2018-08-19 12:35 | XMS REPORT | Summary of Care ---
Author Organization Unknown Address Unknown Phone Unavailable Encounter DEONDRE Crane([facility]) [id number] Date(s): 08/03/14 - 08/08/14 [facility] [address] [place] [address]- Final: Discharge Disposition: Home Physician Attending: Preeti Betancur MD Physician Admitting: Preeti Betancur MD Vital Signs 1 2 3 Most recent to oldest [Reference Range]: 154.94 cm (08/04/14 8:39 AM) 152.4 cm (08/03/14 9:31 PM) Height 97.7 DegF (08/08/14 8:00 AM) 97.7 DegF (08/08/14 5:51 AM) 97.3 DegF (08/08/14 1:17 AM) Temperature Oral [96.4-99.1 DegF] 148/78 mmHg *HI* (08/08/14 8:00 AM) 143/73 mmHg *HI* (08/08/14 5:51 AM) 137/73 mmHg (08/08/14 1:17 AM) Blood Pressure [90-140/60-90 mmHg] 18 BRMIN (08/08/14 8:00 AM) 19 BRMIN (08/08/14 5:51 AM) 19 BRMIN (08/08/14 1:17 AM) Respiratory Rate [14-20 BRMIN] 87 bpm (08/08/14 8:00 AM) 80 bpm (08/08/14 5:51 AM) 77 bpm (08/08/14 1:17 AM) Peripheral Pulse Rate [60-100 bpm] 70.091 kg (08/04/14 4:00 PM) 60.455 kg (08/04/14 8:39 AM) 56.818 kg (08/03/14 9:31 PM) Weight 25.18 m2 (08/04/14 8:39 AM) 24.46 m2 (08/03/14 9:31 PM) Body Mass Index Problem List Condition Effective Dates Status Health Status Informant Anemia1 10/04/07 Active Angina(Confirmed) Resolved Benign Resolved hypertension(Confirm ed) H/O: Active hypothyroidism(Confi rmed) H/O: rheumatoid Active arthritis(Confirmed) Hypercholesterolemia Active (Confirmed) Hypertensive 10/04/07 Active disorder2 Liver enzymes Resolved abnormal(Confirmed) Migraine3 10/04/07 Active Nausea(Confirmed) Resolved Neck pain4 10/04/07 Active Shoulder pain5 10/04/07 Active UTI (urinary tract Resolved infection)(Confirmed ) 1Data migrated from [employer] on 07/05/14. 2Data migrated from [employer] on 07/05/14. 3Data migrated from [employer] on 07/05/14. 4Data migrated from [employer] on 07/05/14. 5Data migrated from [employer] on 07/05/14. Allergies, Adverse Reactions, Alerts Substance Reaction Severity Status codeine Active Demerol Active meperidine1 Active 1Data migrated from [employer] on 06/05/14. Originally documented as DEMEROL. Medications Actigall 300 mg, 1 cap, Route: PO, Drug form: CAP, TID, Start date: 08/06/14 12:00:00, Du ration: 30 day, Stop date: 09/05/14 9:00:00 Notes: (Same As: Actigall) Start Date: 08/06/14 Stop Date: 08/08/14 Status: Discontinued Aldactone 25 mg, 1 tab, Route: PO, Drug form: TAB, ONCE, Start date: 08/06/14 9:00:00, Sto p date: 08/06/14 9:00:00 Notes: (Same As: Aldactone) Start Date: 08/06/14 Stop Date: 08/06/14 Status: Completed Aldactone 50 mg, 1 tab, Route: PO, Drug form: TAB, Daily, Dosing Weight 70.091, kg, Start date: 08/07/14 9:00:00, Duration: 30 day, Stop date: 09/05/14 9:00:00 Notes: (Same As: Aldactone) Start Date: 08/07/14 Stop Date: 08/08/14 Status: Discontinued Arava 20 mg, 2 tab, Route: PO, Drug form: TAB, Daily, Dosing Weight 70.091, kg, Start date: 08/06/14 9:00:00, Stop date: 09/04/14 9:00:00 Notes: Non-Formulary Drug. (Same as:Arava) Start Date: 08/06/14 Stop Date: 08/08/14 Status: Discontinued Arava 20 mg oral tablet 20 mg=1 tab, PO, Daily, # 30 tab, 0 Refill(s) Start Date: 08/06/14 Status: Ordered aspirin 81 mg tablet, enteric coated 81 mg, 1 tab, Route: PO, Drug form: ECTAB, Daily, Dosing Weight 60.455, kg, Star t date: 08/05/14 9:00:00, Duration: 30 day, Stop date: 09/03/14 9:00:00 Notes: Do not crush or chew.(Same As: Ecotrin) Start Date: 08/05/14 Stop Date: 08/08/14 Status: Discontinued atropine 0.5 mg, 5 mL, Route: IVP, Drug form: INJ, PRN, PRN Bradycardia, Start date: 07/08 10/21 9:15:00, Duration: 30 day, Stop date: 09/03/14 9:14:00 Start Date: 08/04/14 Stop Date: 08/08/14 Status: Discontinued calcium-vitamin D 600 mg-200 units oral tablet 1 tab, Route: PO, Drug Form: TAB, Dosing Weight 60.455, kg, BID, Start date: 17:00:00, Duration: 30 day, Stop date: 09/03/14 9:00:00 Notes: (Same As: Ubaldo-D, OsCal-D, Oyster Calcium) Start Date: 08/04/14 Stop Date: 08/08/14 Status: Discontinued Cardizem 240 mg, 1 cap, Route: PO, Drug form: ERCAP, ONCE, Dosing Weight 70.091, kg, Star t date: 08/07/14 13:14:00, Stop date: 08/07/14 13:14:00 Notes: (Same as: Cardizem CD) Before meals. DO NOT CRUSH. Start Date: 08/07/14 Stop Date: 08/07/14 Status: Completed cetirizine 5 mg oral tablet 5 mg=1 tab, PO, Daily, X 30 day, # 30 tab, 0 Refill(s) Start Date: 08/08/14 Stop Date: 09/07/14 Status: Ordered Colace 100 mg oral capsule 100 mg, 1 cap, Route: PO, Drug form: CAP, BID, Dosing Weight 70.091, kg, Start d ate: 08/08/14 9:00:00, Duration: 30 day, Stop date: 09/06/14 17:00:00 Notes: (Same as: Colace) (Do Not Crush) Start Date: 08/08/14 Stop Date: 08/08/14 Status: Discontinued Colace 100 mg oral capsule 100 mg=1 cap, PO, BID, PRN as needed for constipation, # 30 cap, 0 Refill(s) Start Date: 08/08/14 Stop Date: 09/07/14 Status: Ordered Coumadin 3 mg, 3 tab, Route: PO, Drug form: TAB, QSun, Start date: 08/10/14 17:00:00, Dur ation: 30 day, Stop date: 09/07/14 17:00:00 Notes: Nurse to ensure documentation of patient education per anticoagulation po licy.Avoid large intake of vitamin-K containing foods diet.(Same As: Coumadin) Start Date: 08/10/14 Stop Date: 08/06/14 Status: Canceled Coumadin 2.5 mg, 1 tab, Route: PO, Drug form: TAB, Q-Tu-Th-Sa, Dosing Weight 70.091, kg, Start date: 08/07/14 17:00:00, Duration: 30 day, Stop date: 09/04/14 17:00:00 Notes: Nurse to ensure documentation of patient education per anticoagulation po licy.Avoid large intake of vitamin-K containing foods diet.(Same As: Coumadin) Start Date: 08/07/14 Stop Date: 08/06/14 Status: Canceled Coumadin 3 mg, 3 tab, Route: PO, Drug form: TAB, Q-M-W-F, Start date: 08/06/14 17:00:00, Duration: 30 day, Stop date: 09/03/14 17:00:00 Notes: Nurse to ensure documentation of patient education per anticoagulation po licy.Avoid large intake of vitamin-K containing foods diet.(Same As: Coumadin) Start Date: 08/06/14 Stop Date: 08/06/14 Status: Discontinued Coumadin 3 mg, Route: PO, Drug form: TAB, Q5PM, Dosing Weight 70.091, kg, Start date: 02/20 17:00:00, Duration: 30 day, Stop date: 09/04/14 17:00:00 Start Date: 08/06/14 Stop Date: 08/06/14 Status: Deleted cycloSPORINE microemulsion 50 mg oral capsule 50 mg=1 cap, PO, QPM, # 60 cap, 0 Refill(s) Start Date: 08/06/14 Status: Ordered cycloSPORINE modified 25 mg oral capsule 25 mg=1 cap, PO, QAM, # 180 cap, 0 Refill(s) Start Date: 08/06/14 Status: Ordered cycloSPORINE modified 25 mg oral capsule 25 mg, 1 cap, Route: PO, Drug form: CAP, QAM, Dosing Weight 70.091, kg, Start da te: 08/06/14 9:00:00, Duration: 30 day, Stop date: 09/04/14 9:00:00 Notes: "Avoid grapefruit and grapefruit juice Neoral Start Date: 08/06/14 Stop Date: 08/08/14 Status: Discontinued cycloSPORINE modified 25 mg oral capsule 50 mg, 2 cap, Route: PO, Drug form: CAP, QPM, Dosing Weight 70.091, kg, Start da te: 08/06/14 17:00:00, Duration: 30 day, Stop date: 09/04/14 17:00:00 Notes: "Avoid grapefruit and grapefruit juice Neoral Start Date: 08/06/14 Stop Date: 08/08/14 Status: Discontinued Detrol LA 4 mg, 1 cap, Route: PO, Drug form: CAP, Daily, Dosing Weight 60.455, kg, Start d ate: 08/05/14 9:00:00, Duration: 30 day, Stop date: 09/03/14 9:00:00 Notes: Do Not Crush. (Same As: Detrol LA) Start Date: 08/05/14 Stop Date: 08/08/14 Status: Discontinued diltiazem 10 mg, 2 mL, Route: IV, Drug form: INJ, ONCE, Dosing Weight 70.091, kg, Start da te: 08/05/14 17:58:00, Stop date: 08/05/14 17:58:00 Notes: (Same as: Cardizem) Start Date: 08/05/14 Stop Date: 08/05/14 Status: Completed diltiazem 125 mg + Sodium Chloride 0.9% (titrate) 100 mL 100 mL, Rate: Titrate, Dosing Weight 70.091, kg, Route: IV, Total Volume: 125 mL , Start Date: 08/05/14 18:18:00, Duration: 30 day, Stop date: 09/04/14 18:17:00, Replace Every: 24 hr Notes: (Same as: Cardizem) Start Date: 08/05/14 Stop Date: 08/06/14 Status: Discontinued diltiazem 125 mg + Sodium Chloride 0.9% (titrate) 100 mL 100 mL, Rate: Titrate, Dosing Weight 70.091, kg, Route: IV, Total Volume: 125 mL , Start Date: 08/07/14 0:02:00, Duration: 30 day, Stop date: 09/06/14 0:01:00, R eplace Every: 24 hr Notes: (Same as: Cardizem) Start Date: 08/07/14 Stop Date: 08/08/14 Status: Discontinued diltiazem 180 mg/24 hours oral capsule, extended release 360 mg=2 cap, PO, Daily, # 60 cap, 0 Refill(s) Start Date: 08/08/14 Status: Ordered Diltiazem Hydrochloride XT 120 mg, 1 cap, Route: PO, Drug form: ERCAP, Daily, Dosing Weight 70.091, kg, Sta rt date: 08/06/14 17:05:00, Duration: 30 day, Stop date: 09/05/14 9:00:00 Notes: (Same as: Cardizem CD) Do Not Crush Before meals. Start Date: 08/06/14 Stop Date: 08/07/14 Status: Discontinued Diltiazem Hydrochloride XT 360 mg, 2 cap, Route: PO, Drug form: ERCAP, Daily, Dosing Weight 70.091, kg, Sta rt date: 08/08/14 9:00:00, Duration: 30 day, Stop date: 09/06/14 9:00:00 Notes: (Same as:Cardizem CD) Before meals. DO NOT CRUSH. Start Date: 08/08/14 Stop Date: 08/08/14 Status: Discontinued enoxaparin 30 mg, 0.3 mL, Route: SUB-Q, Drug form: INJ, [id number], Dosing Weight 60.455, kg, Start date: 08/04/14 15:00:00, Duration: 30 day, Stop date: 09/02/14 15:00:00 Notes: (Same as: Lovenox) Start Date: 08/04/14 Stop Date: 08/08/14 Status: Discontinued ferrous sulfate 225 mg, 3.75 mL, Route: PO, Drug form: LIQ, TID, Start date: 08/07/14 13:00:00, Duration: 30 day, Stop date: 09/06/14 9:00:00 Notes: Give with food.iron elemental 12mg/dh=512jo/5ml as ferrous sulfate Start Date: 08/07/14 Stop Date: 08/08/14 Status: Discontinued Fosamax 70 mg, PO, Q7D, 0 Refill(s) Start Date: 08/06/14 Status: Ordered isosorbide mononitrate 30 mg, 1 tab, Route: PO, Drug form: ERTAB, Daily, Dosing Weight 60.455, kg, Star t date: 08/05/14 9:00:00, Duration: 30 day, Stop date: 09/03/14 9:00:00 Notes: (Same as:Imdur)"Do Not Crush" Take on empty stomach/ full glass of water . Do not crush Start Date: 08/05/14 Stop Date: 08/08/14 Status: Discontinued Keflex 500 mg oral capsule 500 mg=1 cap, PO, QID, X 5 day, # 20 cap, 0 Refill(s) Start Date: 08/08/14 Stop Date: 08/13/14 Status: Ordered levothyroxine 50 microgram, 1 tab, Route: PO, Drug form: TAB, [id number], Dosing Weight 60.455, kg , Start date: 08/05/14 6:30:00, Duration: 30 day, Stop date: 09/03/14 6:30:00 Notes: Take 1 hour before or 2 hours after meal; Enteral feeds may interefere wi th the absorption of this medication.(Same as:Levothroid, Synthroid) Start Date: 08/05/14 Stop Date: 08/08/14 Status: Discontinued metoprolol tartrate 25 mg, 1 tab, Route: PO, Drug form: ERTAB, Daily, Dosing Weight 60.455, kg, Star t date: 08/05/14 9:00:00, Duration: 30 day, Stop date: 09/03/14 9:00:00 Notes: (Same as: Toprol XL) Do Not Crush Start Date: 08/05/14 Stop Date: 08/08/14 Status: Discontinued MiraLax 17 gm, 1 pkt, Route: PO, Drug form: PWDR, Daily, Dosing Weight 70.091, kg, PRN C onstipation, Start date: 08/07/14 19:37:00, Duration: 30 day, Stop date: 5 19:36:00 Notes: Dissolve in 8 oz of water or juice.(Same as: Miralax) Start Date: 08/07/14 Stop Date: 08/08/14 Status: Discontinued morphine Sulfate 2 mg, 1 mL, Route: IVP, Drug form: INJ, Q3H, Dosing Weight 56.818, kg, PRN Pain Score 4-6, Start date: 08/04/14 5:49:00, Duration: 30 day, Stop date: 09/03/14 5 :48:00 Notes: (Same as:MORPhine Sulfate) Start Date: 08/04/14 Stop Date: 08/08/14 Status: Discontinued nitroglycerin 0.4 mg sublingual tablet 0.4 mg, 1 tab, Route: SL, Drug form: TAB, Q5Min, PRN Chest Pain, Start date: 9:15:00, Duration: 30 day, Stop date: 09/03/14 9:14:00 Notes: (Same as:Nitroquick, Nitrostat)"Do Not Crush" Sublingual tablet Start Date: 08/04/14 Stop Date: 08/08/14 Status: Discontinued ondansetron 4 mg, 2 mL, Route: IVP, Drug form: INJ, Q8H, Dosing Weight 56.818, kg, PRN Nause a & Vomiting, Start date: 08/04/14 5:49:00, Duration: 30 day, Stop date: 09/03/14 5:48:00 Notes: (Same as: Zofran) MEDICATION WASTE Product Size: 4 mgProduct Was carisa: ___ mg Start Date: 08/04/14 Stop Date: 08/08/14 Status: Discontinued ondansetron 4 mg, 2 mL, Route: IVP, Drug form: INJ, ONCE, Dosing Weight 56.818, kg, Priority : STAT, Start date: 08/03/14 23:05:00, Stop date: 08/03/14 23:05:00 Notes: (Same as: Zofran) MEDICATION WASTE Product Size: 4 mgProduct Was carisa: ___ mg Start Date: 08/03/14 Stop Date: 08/04/14 Status: Completed pantoprazole 40 mg, 1 tab, Route: PO, Drug form: ECTAB, Before Dinner, Dosing Weight 60.455, kg, Start date: 08/04/14 16:30:00, Duration: 30 day, Stop date: 09/02/14 16:30:0 0 Notes: Tablet should not be chewed or crushed.(Same as: Protonix) Start Date: 08/04/14 Stop Date: 08/08/14 Status: Discontinued pantoprazole 40 mg, Route: IVP, Drug form: INJ, ONCE, Dosing Weight 56.818, kg, For IV push r econstitute with 10 ml 0.9% sodium chloride and push over at least 3 minutes, Pr iority: STAT, Start date: 08/03/14 23:05:00, Stop date: 08/03/14 23:05:00 Notes: For IV push reconstitute with 10 ml 0.9% sodium chloride and push over 2 minutes. (Same as: Protonix) Start Date: 08/03/14 Stop Date: 08/04/14 Status: Completed predniSONE 5 mg, 1 tab, Route: PO, Drug form: TAB, Daily, Dosing Weight 70.091, kg, Start d ate: 08/06/14 9:00:00, Duration: 30 day, Stop date: 09/04/14 9:00:00 Notes: Take with food. Start Date: 08/06/14 Stop Date: 08/08/14 Status: Discontinued predniSONE 60 mg, 3 tab, Route: PO, Drug form: TAB, Daily, Dosing Weight 60.455, kg, Start date: 08/05/14 9:00:00, Duration: 30 day, Stop date: 09/03/14 9:00:00 Notes: Take with food. Start Date: 08/05/14 Stop Date: 08/07/14 Status: Discontinued predniSONE 5 mg oral tablet 5 mg=1 tab, PO, Daily, 0 Refill(s) Start Date: 08/05/14 Status: Suspended Robitussin 100 mg, Route: PO, Dosing Weight 70.091, kg, Q6H, Start date: 08/07/14 18:00:00, Duration: 30 day, Stop date: 09/06/14 12:00:00 Start Date: 08/07/14 Stop Date: 08/07/14 Status: Canceled Robitussin Route: PO, Drug Form: TAB, Dosing Weight 70.091, kg, Q6H, PRN Cough, Start date: 08/07/14 12:39:00, Duration: 30 day, Stop date: 09/06/14 12:38:00 Start Date: 08/07/14 Stop Date: 08/07/14 Status: Deleted Robitussin 100 mg, 5 mL, Route: PO, Drug Form: LIQ, Dosing Weight 70.091, kg, Q6H, PRN Coug h, Start date: 08/07/14 13:33:00, Duration: 30 day, Stop date: 09/06/14 13:32:00 Notes: (Same as: Robitussin) Start Date: 08/07/14 Stop Date: 08/08/14 Status: Discontinued Rocephin + Sodium Chloride 0.9% IV 100 mL 1 gm, Route: IVPB, [id number], Dosing Weight 70.091, kg, Start date: 08/07/14 16:00 :00, Duration: 30 day, Stop date: 09/05/14 16:00:00 Notes: Mix in NS 100ml ADV bag and infuse over 30 Minutes (Same As: Rocephin) Start Date: 08/07/14 Stop Date: 08/08/14 Status: Discontinued Saline Flush 0.9% 10 ml, Route: IVP, Drug Form: INJ, Dosing Weight 56.818, kg, PRN, PRN Line Flush , Start date: 08/04/14 5:49:00, Duration: 30 day, Stop date: 09/03/14 5:48:00 Notes: (Same as: BD Posiflush) Start Date: 08/04/14 Stop Date: 08/08/14 Status: Discontinued Saline Flush 0.9% 10 mL, Route: IVP, Drug Form: INJ, Dosing Weight 56.818, kg, PRN, PRN Line Flush , Start date: 08/03/14 23:05:00, Duration: 30 day, Stop date: 09/02/14 23:04:00 Notes: (Same as: BD Posiflush) Start Date: 08/03/14 Stop Date: 08/08/14 Status: Discontinued Slow Release Iron 45 mg oral tablet, extended release 45 mg, 1 tab, Route: PO, Drug form: ERTAB, Daily, Dosing Weight 70.091, kg, Star t date: 08/06/14 9:00:00, Duration: 30 day, Stop date: 09/04/14 9:00:00 Start Date: 08/06/14 Stop Date: 08/07/14 Status: Deleted Slow Release Iron 45 mg oral tablet, extended release 45 mg, 1 tab, Route: PO, Drug form: ERTAB, Daily, Dosing Weight 60.455, kg, Star t date: 08/05/14 9:00:00, Duration: 30 day, Stop date: 09/03/14 9:00:00 Start Date: 08/05/14 Stop Date: 08/04/14 Status: Canceled Sodium Chloride 0.9% (Bolus) IV 500 mL, 500 ml/hr, Infuse Over: 1 hr, Route: IV, 500, Drug form: INJ, ONCE, Prio rity: STAT, Dosing Weight 56.818 kg, Start date: 08/04/14 1:25:00, Duration: 1 d oses or times, Stop date: 08/04/14 1:25:00 Start Date: 08/04/14 Stop Date: 08/04/14 Status: Completed Sodium Chloride 0.9% IV 1,000 mL 1,000 mL, Rate: 90 ml/hr, Infuse over: 11.1 hr, Route: IV, Dosing Weight 56.818 kg, Total Volume: 1,000, Start date: 08/04/14 5:49:00, Duration: 30 day, Stop da te: 09/03/14 5:48:00 Start Date: 08/04/14 Stop Date: 08/06/14 Status: Discontinued spironolactone 25 mg, 1 tab, Route: PO, Drug form: TAB, BID, Dosing Weight 60.455, kg, Start da te: 08/04/14 17:00:00, Duration: 30 day, Stop date: 09/03/14 9:00:00 Notes: (Same As: Aldactone) Start Date: 08/04/14 Stop Date: 08/06/14 Status: Discontinued spironolactone 50 mg oral tablet 50 mg=1 tab, PO, Daily, 0 Refill(s) Start Date: 08/08/14 Status: Ordered Tylenol 325 mg, 1 tab, Route: PO, Drug form: TAB, Daily, Dosing Weight 70.091, kg, PRN H eadache 1-5, Start date: 08/07/14 10:03:00, Duration: 30 day, Stop date: 5 10:02:00 Notes: Do not exceed 4 gm/day. (Same as: Tylenol) Start Date: 08/07/14 Stop Date: 08/08/14 Status: Discontinued ursodiol 500 mg, Route: PO, Drug form: TAB, TID, Dosing Weight 70.091, kg, Start date: 9:00:00, Duration: 30 day, Stop date: 09/04/14 17:00:00 Start Date: 08/06/14 Stop Date: 08/06/14 Status: Deleted ursodiol 500 mg oral tablet 500 mg=1 tab, PO, TID, 0 Refill(s) Start Date: 08/06/14 Stop Date: 09/05/14 Status: Ordered Vitamin B12 1,000 microgram, 1 mL, Route: IM, Drug form: INJ, Q30D, Dosing Weight 60.455, kg , Start date: 08/04/14 15:00:00, Duration: 30 day, Stop date: 09/03/14 9:00:00 Notes: (Same As: Vitamin B12) Start Date: 08/04/14 Stop Date: 08/08/14 Status: Discontinued ZyrTEC 10 mg, 2 tab, Route: PO, Drug form: TAB, Daily, Dosing Weight 70.091, kg, Start date: 08/08/14 9:00:00, Duration: 30 day, Stop date: 09/06/14 9:00:00 Notes: (Same As: Zyrtec) Start Date: 08/08/14 Stop Date: 08/08/14 Status: Discontinued Results BLOOD BANK RESULTS 1 2 3 Most recent to oldest [Reference Range]: A POS *Unknown* (08/04/14 12:32 AM) ABO/Rh Negative (08/04/14 12:32 AM) Antibody Scrn Product available 1 (08/04/14 1:25 AM) RBC product 1Result Comment: 08/04/2014 05:24 [id number] called franco [id number] at08/04/2014 05:24 ELECTROLYTES 1 2 3 Most recent to oldest [Reference Range]: 134 mEq/L *LOW* (08/05/14 6:03 PM) 134 mEq/L *LOW* (08/05/14 4:35 AM) 128 mEq/L *LOW* (08/04/14 7:11 AM) Sodium Lvl [135-145 mEq/L] 4.0 mEq/L (08/05/14 6:03 PM) 3.8 mEq/L (08/05/14 4:35 AM) 4.3 mEq/L (08/04/14 7:11 AM) Potassium Lvl [3.5-5.1 mEq/L] 108 mEq/L (08/05/14 6:03 PM) 107 mEq/L (08/05/14 4:35 AM) 99 mEq/L (08/04/14 7:11 AM) Chloride Lvl [95-109 mEq/L] 16 mEq/L *LOW* (08/05/14 6:03 PM) 19 mEq/L *LOW* (08/05/14 4:35 AM) 20 mEq/L *LOW* (08/04/14 7:11 AM) CO2 [24-32 mEq/L] 14.0 mEq/L (08/05/14 6:03 PM) 11.8 mEq/L (08/05/14 4:35 AM) 13.3 mEq/L (08/04/14 7:11 AM) AGAP [10.0-20.0 mEq/L] CHEM PANEL 1 2 3 Most recent to oldest [Reference Range]: 1.4 mg/dL (08/05/14 6:03 PM) 1.7 mg/dL *HI* (08/05/14 4:35 AM) 2.2 mg/dL *HI* (08/04/14 6:53 PM) Creatinine Lvl [0.5-1.4 mg/dL] 37 mL/min/1.73m2 2 *NA* (08/05/14 6:03 PM) 30 mL/min/1.73m2 3 *NA* (08/05/14 4:35 AM) 22 mL/min/1.73m2 4 *NA* (08/04/14 6:53 PM) eGFR 30 mg/dL *HI* (08/05/14 6:03 PM) 41 mg/dL *HI* (08/05/14 4:35 AM) 60 mg/dL *HI* (08/04/14 7:11 AM) BUN [7-22 mg/dL] 21 (08/05/14 6:03 PM) 24 (08/05/14 4:35 AM) 25 (08/04/14 7:11 AM) B/C Ratio [6-25] 125 mg/dL 5 *HI* (08/05/14 6:03 PM) 81 mg/dL 6 (08/05/14 4:35 AM) 81 mg/dL 7 (08/04/14 7:11 AM) Glucose Lvl [70-99 mg/dL] 4.8 g/dL *LOW* (08/05/14 6:03 PM) 4.3 g/dL *LOW* (08/05/14 4:35 AM) 5.2 g/dL *LOW* (08/04/14 7:11 AM) Total Protein [6.4-8.4 g/dL] 2.1 g/dL *LOW* (08/05/14 6:03 PM) 2.1 g/dL *LOW* (08/05/14 4:35 AM) 2.3 g/dL *LOW* (08/04/14 7:11 AM) Albumin Lvl [3.5-5.0 g/dL] 2.7 g/dL (08/05/14 6:03 PM) 2.2 g/dL (08/05/14 4:35 AM) 2.9 g/dL (08/04/14 7:11 AM) Globulin [2.0-4.0 g/dL] 0.8 (08/05/14 6:03 PM) 1.0 (08/05/14 4:35 AM) 0.8 (08/04/14 7:11 AM) A/G Ratio [0.7-1.6] 8.2 mg/dL *LOW* (08/05/14 6:03 PM) 7.9 mg/dL *LOW* (08/05/14 4:35 AM) 8.0 mg/dL *LOW* (08/04/14 7:11 AM) Calcium Lvl [8.5-10.5 mg/dL] 2.3 mg/dL *LOW* (08/05/14 4:35 AM) 3.5 mg/dL (08/04/14 7:11 AM) 3.8 mg/dL (08/04/14 12:32 AM) Phosphorus [2.5-4.5 mg/dL] 1.8 mg/dL (08/05/14 6:03 PM) 2.0 mg/dL (08/05/14 4:35 AM) 2.3 mg/dL (08/04/14 7:11 AM) Magnesium Lvl [1.8-2.4 mg/dL] 59 unit/L (08/05/14 6:03 PM) 59 unit/L (08/05/14 4:35 AM) 64 unit/L (08/04/14 7:11 AM) ALT [0-65 unit/L] 41 unit/L *HI* (08/05/14 6:03 PM) 46 unit/L *HI* (08/05/14 4:35 AM) 51 unit/L *HI* (08/04/14 7:11 AM) AST [0-37 unit/L] 131 unit/L (08/05/14 6:03 PM) 140 unit/L *HI* (08/05/14 4:35 AM) 141 unit/L *HI* (08/04/14 7:11 AM) Alk Phos [39-136 unit/L] 1.3 mg/dL (08/05/14 6:03 PM) 1.4 mg/dL *HI* (08/05/14 4:35 AM) 1.6 mg/dL *HI* (08/04/14 7:11 AM) Bili Total [0.2-1.3 mg/dL] 510 unit/L *HI* (08/04/14 12:32 AM) Lipase Lvl [73-393 unit/L] 2Result Comment: The eGFR is calculated using the [...] be mul tiplied by the estimated BMI. 3Result Comment: The eGFR is calculated using the [...] be mul tiplied by the estimated BMI. 4Result Comment: The eGFR is calculated using [...] values reflect the clinical guidelines of the [employer] [employer]. 6Interpretive Data: Adult reference range values reflect the clinical guidelines of the [place] [employer]. 7Interpretive Data: Adult reference range values reflect the clinical guidelines of the [employer] [employer]. CARDIAC ENZYMES 1 2 3 Most recent to oldest [Reference Range]: 34 unit/L (08/04/14 12:32 AM) Total CK [12-191 unit/L] 1.2 ng/mL (08/04/14 12:32 AM) CK MB [0.5-3.6 ng/mL] 3.5 *HI* (08/04/14 12:32 AM) CK MB Index [0.0-2.5] <0.02 ng/mL (08/04/14 12:32 AM) Troponin-I [0.00-0.40 ng/mL] ANEMIA STUDY 1 2 3 Most recent to oldest [Reference Range]: 52 ug/dl (08/04/14 12:32 AM) Iron [30-160 ug/dl] 528 ng/mL *HI* (08/04/14 12:32 AM) Ferritin Lvl [5-204 ng/mL] 17 % (08/04/14 12:32 AM) % Satur Fe [12-57 %] 260 ug/dl (08/04/14 12:32 AM) UIBC [110-370 ug/dl] 312 ug/dl (08/04/14 12:32 AM) TIBC [228-428 ug/dl] 242 mg/dL (08/04/14 12:32 AM) Transferrin [212-360 mg/dL] URINE AND STOOL 1 2 3 Most recent to oldest [Reference Range]: Marked *ABN* (08/03/14 11:09 PM) UA Turbidity [Clear] Yellow *NA* (08/03/14 11:09 PM) UA Color [Yellow] 5.0 (08/03/14 11:09 PM) UA pH [5.0-8.0] 1.009 (08/03/14 11:09 PM) UA Spec Grav [<=1.030] Negative mg/dL *NA* (08/03/14 11:09 PM) UA Glucose [Negative mg/dL] Negative (08/03/14 11:09 PM) UA Blood [Negative] Negative mg/dL *NA* (08/03/14 11:09 PM) UA Ketones [Negative mg/dL] Negative mg/dL (08/03/14 11:09 PM) UA Protein [Negative mg/dL] 2.0 mg/dL *HI* (08/03/14 11:09 PM) UA Urobilinogen [0.1-1.0 mg/dL] Negative *NA* (08/03/14 11:09 PM) UA Bili [Negative] Moderate *ABN* (08/03/14 11:09 PM) UA Leuk Est [Negative] Negative (08/03/14 11:09 PM) UA Nitrite [Negative] 2 /HPF (08/03/14 11:09 PM) UA WBC [0-5 /HPF] 2 /HPF (08/03/14 11:09 PM) UA RBC [0-2 /HPF] Occasional /HPF *NA* (08/03/14 11:09 PM) UA Bacteria [None Seen /HPF] Moderate /LPF *ABN* (08/03/14 11:09 PM) UA Sq Epi [Few /LPF] Few /LPF *NA* (08/03/14 11:09 PM) UA Mucus [None Seen /LPF] Negative (08/03/14 11:09 PM) Occult Bld Stl [Negative] HEMATOLOGY 1 2 3 Most recent to oldest [Reference Range]: 7.9 K/CMM (08/05/14 6:03 PM) 9.3 K/CMM (08/05/14 4:35 AM) 12.3 K/CMM *HI* (08/04/14 7:11 AM) WBC [3.7-10.4 K/CMM] 3.10 M/CMM *LOW* (08/05/14 6:03 PM) 3.07 M/CMM *LOW* (08/05/14 4:35 AM) 2.11 M/CMM *LOW* (08/04/14 7:11 AM) RBC [4.20-5.40 M/CMM] 10.4 g/dL *LOW* (08/05/14 6:03 PM) 10.4 g/dL *LOW* (08/05/14 4:35 AM) 7.7 g/dL *LOW* (08/04/14 7:11 AM) Hgb [12.0-16.0 g/dL] 31.1 % *LOW* (08/05/14 6:03 PM) 30.9 % *LOW* (08/05/14 4:35 AM) 24.1 % *LOW* (08/04/14 7:11 AM) Hct [36.0-48.0 %] 100.6 fL *HI* (08/05/14 6:03 PM) 100.9 fL *HI* (08/05/14 4:35 AM) 114.0 fL *HI* (08/04/14 7:11 AM) MCV [80.0-98.0 fL] 33.6 pg *HI* (08/05/14 6:03 PM) 33.9 pg *HI* (08/05/14 4:35 AM) 36.5 pg *HI* (08/04/14 7:11 AM) MCH [27.0-31.0 pg] 33.4 g/dL (08/05/14 6:03 PM) 33.6 g/dL (08/05/14 4:35 AM) 32.0 g/dL (08/04/14 7:11 AM) MCHC [32.0-36.0 g/dL] 27.6 % *HI* (08/05/14 6:03 PM) 27.2 % *HI* (08/05/14 4:35 AM) 29.9 % *HI* (08/04/14 7:11 AM) RDW [11.5-14.5 %] 98 K/CMM *LOW* (08/05/14 6:03 PM) 109 K/CMM *LOW* (08/05/14 4:35 AM) 118 K/CMM *LOW* (08/04/14 6:53 PM) Platelet [133-450 K/CMM] 9.5 fL (08/05/14 6:03 PM) 9.8 fL (08/05/14 4:35 AM) 11.3 fL *HI* (08/04/14 7:11 AM) MPV [7.4-10.4 fL] 61.7 % (08/05/14 6:03 PM) 67.7 % (08/05/14 4:35 AM) 64.1 % (08/04/14 7:11 AM) Segs [45.0-75.0 %] 7.0 % (08/04/14 12:32 AM) Bands [0.0-11.0 %] 17.6 % *LOW* (08/05/14 6:03 PM) 14.5 % *LOW* (08/05/14 4:35 AM) 24.1 % (08/04/14 7:11 AM) Lymphocytes [20.0-40.0 %] 0.0 % (08/04/14 12:32 AM) Atypical Lymphs [<=0.0 %] 17.8 % *HI* (08/05/14 6:03 PM) 15.3 % *HI* (08/05/14 4:35 AM) 8.6 % (08/04/14 7:11 AM) Monocytes [2.0-12.0 %] 1.6 % (08/05/14 6:03 PM) 1.4 % (08/05/14 4:35 AM) 1.2 % (08/04/14 7:11 AM) Eosinophils [0.0-4.0 %] 1.3 % *HI* (08/05/14 6:03 PM) 1.1 % *HI* (08/05/14 4:35 AM) 2.0 % *HI* (08/04/14 7:11 AM) Basophils [0.0-1.0 %] 4.9 K/CMM (08/05/14 6:03 PM) 6.3 K/CMM (08/05/14 4:35 AM) 7.9 K/CMM (08/04/14 7:11 AM) Segs-Bands # [1.5-8.1 K/CMM] 1.4 K/CMM (08/05/14 6:03 PM) 1.4 K/CMM (08/05/14 4:35 AM) 3.0 K/CMM (08/04/14 7:11 AM) Lymphocytes # [1.0-5.5 K/CMM] 1.4 K/CMM *HI* (08/05/14 6:03 PM) 1.4 K/CMM *HI* (08/05/14 4:35 AM) 1.1 K/CMM *HI* (08/04/14 7:11 AM) Monocytes # [0.0-0.8 K/CMM] 0.1 K/CMM (08/05/14 6:03 PM) 0.1 K/CMM (08/05/14 4:35 AM) 0.1 K/CMM (08/04/14 7:11 AM) Eosinophils # [0.0-0.5 K/CMM] 0.1 K/CMM (08/05/14 6:03 PM) 0.1 K/CMM (08/05/14 4:35 AM) 0.2 K/CMM (08/04/14 7:11 AM) Basophils # [0.0-0.2 K/CMM] 21 /100WB *NA* (08/04/14 12:32 AM) NRBC Moderate *ABN* (08/04/14 12:32 AM) Polychrom [None Seen] 1+ *ABN* (08/05/14 6:03 PM) 1+ *ABN* (08/05/14 4:35 AM) 3+ *NA* (08/04/14 7:11 AM) Macrocyte [None Seen] Normal (08/04/14 7:11 AM) Normal (08/04/14 12:32 AM) Plt Morph 20.6 seconds *HI* (08/06/14 11:55 AM) PT [12.0-14.7 seconds] 1.73 8 *HI* (08/06/14 11:55 AM) INR [0.85-1.17] 39.4 seconds 9 *HI* (08/04/14 6:53 PM) PTT [22.9-35.8 seconds] 8Interpretive Data: RECOMMENDED RANGES FOR PROTIME INR: 2.0-3.0 for most medical and surgical thromboembolic states. 2.5-3.5 for artificial heart valves and recurrent embolism. INR SHOULD BE USED ONLY FOR PATIENTS ON STABLE ANTICOAGULANT THERAPY. 9Interpretive Data: Heparin Therapeutic Range: 57 - 92 Seconds BACTERIAL - SEROLOGY 1 2 3 Most recent to oldest [Reference Range]: Negative 10 (08/05/14 6:55 PM) MRSA by PCR 10Interpretive Data: Interpretive Data: The [employer] LightCycler MRSA assay is a qualitative test for the direct detection of nasal colonization with methicillin-resistant Staphylococcus aureus (MRSA) to aid in the prevention and control of MRSA infections in healthcare settings. A positive result does not indicate an infection or require treatment. A negative result does not exclude colonization or infection. The polymerase chain reaction (PCR) assay detects a proprietary sequence indicat zhou of the integration of the SCCmec cassette into the Staphylococcus aureus chr omosome, indicating the presence of MRSA DNA. The assay utilizes FDA cleared IV D reagents. Performance characteristics have been verified by the [facility] within the [facility]. The [facility] is authorized under the Clinical Laboratory Improvement Amendment of 1 988 (CLIA-88) to perform high complexity testing. Immunizations Vaccine Date Refusal Reason Hx influenza vaccine-unspecified 10/18/13 tuberculin purified protein derivative 07/17/12 Procedures Procedure Date Related Diagnosis Body Site Appendectomy Breast biopsy and related procedures Cataract surgery Cholecystectomy Tonsillectomy Total hysterectomy Social History Social History Type Response Smoking Status Former smoker; Type: Cigarettes; Exposure to Tobacco Smoke None; Cigarette Smoking Last 365 Days No; Reg Smoking Cessation Counseling No Assessment and Plan Extracted from: Title: Clinical Document Author: Sav Mueller MD Date: 08/08/14 Progress Note -Cardiology- Am[facility] (Office) [address] [facility], [address] (ph) [phone] Attending: Preeti Betancur MDPhone: Service: Internal Medicine Code status: Full Code [Ordered] Reason for Admission: ANEMIA, HYPONATREMIA Working DRG: Red blood cell disorders w/o CARE HOME Isolation: None Documented Consulting Physicians: Eugene Coy MDOffice: MSO: [id number]: Cardiology, Medicine Rd Dsouza MDOffice: MSO: [id number]: Pulmonary, Medicine Sav Mueller MDOffice: MSO: [id number]: Cardiology Brandon Celeste MDOffice: MSO: [id number]: Medicine Preeti Betancur MDOffice: MSO: [id number]: Medicine Subjective No acute overnight In NSR on CCB po Allergies: meperidine, codeine, Demerol Medications (31) Active Scheduled Meds (20): 08/05/14 aspirin (aspirin 81 mg tablet, enteric coated) 81 mg PO Daily 08/04/14 calcium-vitamin D (calcium-vitamin D 600 mg-200 units oral tablet) 1 tab PO BID 08/07/14 cefTRIAXone + Sodium Chloride 0.9% IV 100 mL (Rocephin + Sodium Chloride 0.9% IV 100 mL) 1 gm IVPB [id number] 200 ml/hr 08/08/14 cetirizine (ZyrTEC) 10 mg PO Daily 08/04/14 cyanocobalamin (Vitamin B12) 1,000 microgram IM Q30D 08/06/14 cycloSPORINE (cycloSPORINE modified 25 mg oral capsule) 50 mg PO QPM 08/06/14 cycloSPORINE (cycloSPORINE modified 25 mg oral capsule) 25 mg PO QAM 08/08/14 diltiazem (Diltiazem Hydrochloride XT) 360 mg PO Daily 08/08/14 docusate (Colace 100 mg oral capsule) 100 mg PO BID 08/04/14 enoxaparin 30 mg SUB-Q [id number] 08/07/14 ferrous sulfate 225 mg PO TID 08/05/14 isosorbide mononitrate 30 mg PO Daily 08/06/14 leflunomide (Arava) 20 mg PO Daily 08/05/14 levothyroxine 50 microgram PO Q630AM 08/05/14 metoprolol (metoprolol tartrate) 25 mg PO Daily 08/04/14 pantoprazole 40 mg PO Before Dinner 08/06/14 predniSONE 5 mg PO Daily 08/07/14 spironolactone (Aldactone) 50 mg PO Daily 08/05/14 tolterodine (Detrol LA) 4 mg PO Daily 08/06/14 ursodiol (Actigall) 300 mg PO TID Unscheduled Meds: None PRN Meds (9): 08/07/14 acetaminophen (Tylenol) 325 mg PO Daily 08/04/14 atropine 0.5 mg IVP PRN 08/07/14 guaiFENesin (Robitussin) 100 mg PO Q6H 08/04/14 morphine Sulfate 2 mg IVP Q3H 08/04/14 nitroglycerin (nitroglycerin 0.4 mg sublingual tablet) 0.4 mg SL Q5Min 08/04/14 ondansetron 4 mg IVP Q8H 08/07/14 polyethylene glycol 3350 (MiraLax) 17 gm PO Daily 08/03/14 sodium chloride (Saline Flush 0.9%) 10 mL IVP PRN 08/04/14 sodium chloride (Saline Flush 0.9%) 10 ml IVP PRN One Time Meds (1): 08/07/14 (Completed) diltiazem (Cardizem) 240 mg PO ONCE Continuous Infusions (1): 08/07/14 diltiazem 125 mg + Sodium Chloride 0.9% IV 100 mL (diltiazem 125 mg + Sodium Chloride 0.9% (titrate) 100 mL) 100 mL Titrate Objective Review of Systems HEENT: no diplopia Respiratory: no cough Cardiovascular: no chest pain Gastrointestinal: no diarrhea Genitourinary: no dysuria Integumentary: thickess Extremities: no edema Neurologic: no hx of CVA/TIA Austen/Lymph: no LAD Endocrine: no polyuria nor polydipsia Psychiatric: at baseline VitalsTmp(F)Tmp(C)[id number] 08/08 08:0097.736.21zcaq932/78---8718--------- 08/08 05:5197.736.56htmk541/73---[id number]------ 08/08 01:1797.336.26dcwr915/73---7719--------- 08/07 20:0097.836.99dxnx424/[id number]------ 08/07 19:00 121/[id number]------ 24 Hr Tmax: 97.8F (36.56c) at 08/07 20:00Vital Signs are the last 5 in the past 48 hours. 24 Hr Tmin: 97.3F (36.28c) at 08/08 01:17Weights are the last 5 in 60 days, plus initial. DateWt(kg)Wt(lb)Ht(cm)Ht(in)MethodBMIBSA 08/04 60.45 133.49325.94 61.00Estimated 25.21.61 08/03 (initial) 56.82 125.85648.40 60.00Estimated 24.51.55 (no point of care glucose results charted in last 24 hours) Most Recent Scores: 08/08/14Braden Score21 08/08/14Glasgow Coma Score15 08/08/14Pain Intensity NRS (0-10)0 08/08/14Johns Garcia Fall Score9 Lines, Tubes, and Drains: 08/05/2014 20:00 Peripheral Lines: Hand Right 20 gauge Over the needle catheter (no surgical procedures documented) (no lab data in past 24 hours) Physical Exam: HEENT: PERRLA Neurological: A&O x 3, no confusion Cardiac: S1 & S2, no murmurs, denies chest pain, sinus rhythm Respiratory: Lungs clear, no wheezing, denies cough Gastrointestinal: Positive bowel sounds, denies constipation, denies abdominal pain Genitourinary: Voiding without difficulties Extremeties: No edema Skin: chronic steroid Assessment & Plan: 74 yo WF admitted for anemia s/p PRBC transfusion for chronic anemia. Hx autoimmune hepatitis on Cyclospoine, COPD, p-Afib (prior on OAC, with liable INR 2/2 (to hepatis). AFIB: paroxysmal in NSR w/ high dose Diltiazem. Not ideal for other agents due to liver dx (amiodarone and DGX) or lung dz (BB). Aware of possible interaction w/ CCB and Cy. Cy monitored by P[facility] Supervisor at [facility]. Patient instructed to close follow up w/ BCM AND contact me on Monday as follow up. Regular follow up in 1 week as O/P. No OAC due to poor liver metabolism and relatively low CHADS and patient preference after lenghty discussion. Dispo: as above, Ok to DC. Extracted from: Title: Clinical Document Author: Preeti Betancur MD Date: 08/08/14 [id number] Extracted from: Title: History & Physical Author: Gertrude Culp MD Date: 08/04/14 H&P [facility] Completed: Monday, AUG 04, 2014, 03:34 by Gertrude Culp MD RM: IRISH - , SE CARLOS ALIAKIRSTEN [id number] (: 1940) F Attending: Preeti Betancur MDPhone: Service: Emergency Medicine Service Reason for Admission: ANEMIA, HYPONATREMIA Working DRG: None Documented Code status: None Specified=FULL CODECurrent diet: Isolation: None Documented Allergies: meperidine, codeine, Demerol SUBJECTIVE: generalized weakness and fatigue; anemic 73 year old referred from rehab with symptomatic anemia. per patient during therapy for the past few weeks she has had more fatigue, decreased endurance from her baseline. She states she has not had chest pain or shortness of breath. She has not notice melena or hematochezia. She has been taking her medications as directed. She denies fever, cough or congestion. No syncope but has been lightheaded. All other systems reviewed and are negative. PAST MEDICAL HISTORY 1. Autoimmune hepatitis diagnosed 07/2012 2. Borderline Diabetes mellitus type II 3. Rheumatoid arthritis 4. Lupus 5. Hypertension 6. Hypothyroidism 7. Iron deficiency anemia 8. h/o Angina 9. DJD 10. Cervical spondylosis 11. Cervical radiculopathy 12. Urinary incontinence 13. Vitamin B12 deficiency PAST SURGICAL HISTORY 1. Appendectomy. 2. Tonsillectomy. 3. Cholecystectomy. 4. Hysterectomy. 5. Cataract MEDICATIONS MAR pending review SOCIAL HISTORY with 2 stepchildren. FAMILY HISTORY Reviewed and she does not know. OBJECTIVE Hemodynamically stable H: NC/NT E: EOMI, sclera clear conjunctiva - pink OP moist Lungs clear to auscultation CV S1S2 RRR Abdomen flat, soft without tenderness, decreased bowel sounds deferred Rectal deferred Neurological AOx3 with CNII-XII grossly intact FROM in all extremties not full assessed for gait and endurance - patient about to undergo transfusion LFTs improved from previously as well as bilirubin. Elevated lipase but no comparison. Patient without abdominal pain. Present hyponatremia and occult stool negative. MCV elevated. Increased WBC function of chronic steroid use. No S/S of infection ASSESSMENT & EXAM 73 year old with above noted medical problems admitted for symptomatic anemia. Patient coming from [facility] and assigned to Dr. Betancur due to attending pathway. PLAN & TREATMENT 1. Admit for additional care support 2. Transfuse 2U and check post transfusion H/H Additional recommendations per the Team in am Ready for Discharge (Yes/No)? Choudhary still necessary (Yes/No): Line still necessary (Yes/No): 24hr Labs 08/04 0032 Sodium Ozi831 L Potassium Lvl4.6 Chloride Lvl95 CO217 L AGAP17.6 Glucose Lvl73 Creatinine Lvl2.5 H BUN69 H B/C Ratio28 H Total Protein5.3 L Albumin Lvl2.3 L Globulin3.0 A/G Ratio0.8 Calcium Lvl7.6 L ALT68 H AST53 H Alk Vosq490 H Bili Total1.7 H eGFR18 Total CK34 Lipase Emi265 H Magnesium Lvl2.2 Phosphorus3.8 Troponin-I<0.02 CK MB1.2 CK MB Index3.5 H WBC13.5 H RBC2.03 L Hgb7.5 L Hct23.1 L QJZ377.8 H MCH36.8 H MCHC32.3 RDW29.7 H Lapplbdu369 MPV9.5 08/03 2309 Occult Bld StlNegative UA ColorYellow UA TurbidityMarked UA Spec Grav1.009 UA pH5.0 UA ProteinNegative UA GlucoseNegative UA KetonesNegative UA BiliNegative UA BloodNegative UA Urobilinogen2.0 H UA NitriteNegative UA Leuk EstModerate UA RBC2 UA WBC2 UA BacteriaOccasional UA MucusFew UA Sq EpiModerate VitalsTmp(F)RlchxUEZDGtF3TFH7 08/03 21:31----[id number]--- 24 Hr Tmax: No Data AvailableVital Signs are the last 5 in the past 48 hours. DateWt(kg)Wt(lb)Ht(cm)Ht(in)Method 08/03 (initial) 56.82 125.31700.40 60.00Estimated I&ORecordInOutBal 07/2823hr Tot 510 0 510 07/2723hr Tot 0 0 0 Medications (4) Active Scheduled Meds: None Unscheduled Meds: None PRN Meds (1): 08/03/14 sodium chloride (Saline Flush 0.9%) 10 mL IVP PRN One Time Meds (3): 08/04/14 (Completed) Sodium Chloride 0.9% IV (Sodium Chloride 0.9% (Bolus) IV) 500 mL IV ONCE 500 ml/hr 08/03/14 (Completed) ondansetron 4 mg IVP ONCE 08/03/14 (Completed) pantoprazole 40 mg IVP ONCE Continuous Infusions: None
--- OUTSIDE RECORDS SUMMARY | 2018-08-19 12:36 | XMS REPORT | Summary of Care ---
Author Organization Unknown Address Unknown Phone Unavailable Encounter [facility](GARCIA) [id number] Date(s): 01/08/14 - 01/08/14 [facility] [address] Discharge Disposition: Home Physician Attending: Zay rToncoso MD Physician_Referring: Zay Troncoso MD Reason for Visit PAIN Problem List Condition Effective Dates Status Health Status Informant Angina(Confirmed) Resolved Benign Resolved hypertension(Confirm ed) H/O: Active hypothyroidism(Confi rmed) H/O: rheumatoid Active arthritis(Confirmed) Hypercholesterolemia Active (Confirmed) Liver enzymes Resolved abnormal(Confirmed) Nausea(Confirmed) Resolved UTI (urinary tract Resolved infection)(Confirmed ) Allergies, Adverse Reactions, Alerts Substance Reaction Severity Status codeine Active Demerol Active Medications No data available for this section Medications Administered During Your Visit No data available for this section Immunizations Vaccine Date Refusal Reason tuberculin purified protein derivative 07/17/12 Social History Social History Type Response Smoking Status Former smoker, Type: Cigarettes, Exposure to Tobacco Smoke None, Cigarette Smoking Last 365 Days No, Reg Smoking Cessation Counseling No
--- OUTSIDE RECORDS SUMMARY | 2018-08-19 12:36 | XMS REPORT | Summary of Care ---
Author Organization Unknown Address Unknown Phone Unavailable Encounter DEONDRE Crane(GARCIA) [id number] Date(s): 01/10/14 - 01/15/14 [facility] [address] [place] [address] - [facility] Discharge Disposition: Home Physician Attending: Rafi Sage DO Physician Admitting: Rafi Sage DO Reason for Visit EXACERBATION OF AUTOIMMUNE HEPATITIS, JAUNDICE Vital Signs 1 2 3 Most recent to oldest [Reference Range]: 154.94 cm (01/10/14 2:23 PM) 154.94 cm (01/10/14 2:07 PM) Height 97.5 DegF (01/15/14 7:53 AM) 98.1 DegF (01/15/14 5:14 AM) 97.6 DegF (01/14/14 9:22 PM) Temperature Oral [96.4-99.1 DegF] 113 mmHg (01/15/14 7:53 AM) 138 mmHg (01/15/14 5:14 AM) 142 mmHg *HI* (01/14/14 9:22 PM) Systolic Blood Pressure [90-140 mmHg] 72 mmHg (01/15/14 7:53 AM) 79 mmHg (01/15/14 5:14 AM) 73 mmHg (01/14/14 9:22 PM) Diastolic Blood Pressure [60-90 mmHg] 18 BRMIN (01/15/14 7:53 AM) 18 BRMIN (01/15/14 5:14 AM) 18 BRMIN (01/14/14 9:22 PM) Respiratory Rate [14-20 BRMIN] 74 bpm (01/15/14 7:53 AM) 65 bpm (01/15/14 5:14 AM) 85 bpm (01/14/14 9:22 PM) Peripheral Pulse Rate [60-100 bpm] 69.545 kg (01/10/14 2:23 PM) 69.545 kg (01/10/14 2:07 PM) Weight 28.97 m2 (01/10/14 2:23 PM) 28.97 m2 (01/10/14 2:07 PM) Body Mass Index Problem List Condition Effective Dates Status Health Status Informant Angina(Confirmed) Resolved Benign Resolved hypertension(Confirm ed) H/O: Active hypothyroidism(Confi rmed) H/O: rheumatoid Active arthritis(Confirmed) Hypercholesterolemia Active (Confirmed) Liver enzymes Resolved abnormal(Confirmed) Nausea(Confirmed) Resolved UTI (urinary tract Resolved infection)(Confirmed ) Allergies, Adverse Reactions, Alerts Substance Reaction Severity Status codeine Active Demerol Active Medications aspirin 81 mg tablet, enteric coated 81 mg, 1 tab, Route: PO, Drug form: ECTAB, Daily, Dosing Weight 69.545, kg, Star t date: 01/12/14 9:00:00, Duration: 30 day, Stop date: 02/10/14 9:00:00 Notes: Do not crush or chew.(Same As: Ecotrin) Start Date: 01/12/14 Stop Date: 01/15/14 Status: Discontinued Detrol LA 4 mg, 1 cap, Route: PO, Drug form: CAP, Daily, Dosing Weight 69.545, kg, Start d ate: 01/12/14 9:00:00, Duration: 30 day, Stop date: 02/10/14 9:00:00 Notes: Do Not Crush. (Same As: Detrol LA) Start Date: 01/12/14 Stop Date: 01/15/14 Status: Discontinued Dextrose 50% in Water IV 50 mL, Route: IVP, Start date: 01/10/14 14:52:00, Duration: 30 day, Stop date: 0 02/09/14 14:51:00, PRN Blood Glucose Results Start Date: 01/10/14 Stop Date: 01/15/14 Status: Discontinued enoxaparin 40 mg, 0.4 mL, Route: SUB-Q, Drug form: INJ, [id number], Dosing Weight 69.545, kg, Start date: 01/11/14 12:00:00, Duration: 30 day, Stop date: 02/09/14 12:00:00 Notes: (Same as: Lovenox) Start Date: 01/11/14 Stop Date: 01/15/14 Status: Discontinued Entocort EC 9 mg, Route: PO, Drug form: ERCAP, Daily, Dosing Weight 69.545, kg, Start date: 01/12/14 9:00:00, Duration: 30 day, Stop date: 02/10/14 9:00:00 Start Date: 01/12/14 Stop Date: 01/11/14 Status: Canceled Entocort EC 3 mg oral capsule, extended release 9 mg=3 cap, PO, Daily, # 90 cap, 0 Refill(s) Start Date: 01/10/14 Stop Date: 01/11/14 Status: Discontinued ferrous sulfate 325 mg, 1 tab, Route: PO, Drug form: ECTAB, Daily, Start date: 01/12/14 9:00:00, Duration: 30 day, Stop date: 02/10/14 9:00:00 Notes: Give with food. "Do Not Crush" Start Date: 01/12/14 Stop Date: 01/15/14 Status: Discontinued glucagon 1 mg, Route: IM, Drug form: PDR/INJ, PRN, PRN Blood Glucose Results, Start date: 01/10/14 14:52:00, Duration: 30 day, Stop date: 02/09/14 14:51:00 Start Date: 01/10/14 Stop Date: 01/15/14 Status: Discontinued isosorbide mononitrate 30 mg, 1 tab, Route: PO, Drug form: ERTAB, Daily, Dosing Weight 69.545, kg, Star t date: 01/11/14 21:00:00, Stop date: 02/10/14 9:00:00 Notes: (Same as:Imdur)"Do Not Crush" Take on empty stomach/ full glass of water . Do not crush Start Date: 01/11/14 Stop Date: 01/15/14 Status: Discontinued levothyroxine 50 microgram, 1 tab, Route: PO, Drug form: TAB, [id number], Dosing Weight 69.545, kg , Start date: 01/12/14 6:30:00, Duration: 30 day, Stop date: 02/10/14 6:30:00 Notes: Take 1 hour before or 2 hours after meal; Enteral feeds may interefere wi th the absorption of this medication.(Same as:Levothroid, Synthroid) Start Date: 01/12/14 Stop Date: 01/15/14 Status: Discontinued methylPREDNISolone 125 mg, 2 mL, Route: IV, Drug form: INJ, Q6H-02, Start date: 01/10/14 15:00:00, Duration: 30 day, Stop date: 02/09/14 14:00:00 Notes: (Same as:Solu-MEDROL, A-Methapred) Start Date: 01/10/14 Stop Date: 01/14/14 Status: Discontinued methylPREDNISolone 125 mg, 2 mL, Route: IVP, Drug form: INJ, BID, Dosing Weight 69.545, kg, Start d ate: 01/14/14 9:00:00, Duration: 30 day, Stop date: 02/12/14 17:00:00 Notes: (Same as:Solu-MEDROL, A-Methapred) Start Date: 01/14/14 Stop Date: 01/15/14 Status: Discontinued metoprolol 25 mg oral tablet, extended release PO, Daily, 0 Refill(s) Start Date: 01/10/14 Status: Ordered metoprolol tartrate 25 mg, 1 tab, Route: PO, Drug form: ERTAB, Daily, Dosing Weight 69.545, kg, Star t date: 01/12/14 9:00:00, Duration: 30 day, Stop date: 02/09/14 21:00:00 Notes: (Same as: Toprol XL) Do Not Crush Start Date: 01/12/14 Stop Date: 01/15/14 Status: Discontinued multivitamin 1 tab, Route: PO, Drug Form: TAB, Daily, Start date: 01/11/14 9:00:00, Duration: 30 day, Stop date: 02/09/14 9:00:00 Notes: (Same as:One Tab Daily, Tab-A-Leanne + Beta Carotene) Give with food. Start Date: 01/11/14 Stop Date: 01/15/14 Status: Discontinued NovoLOG FlexPen 4 unit, 0.04 mL, Route: SUB-Q, Drug form: SOLN, QID-Before Meals, PRN Blood Gluc ose Results, Start date: 01/10/14 14:51:00, Duration: 30 day, Stop date: 14:50:00 Notes: Roll in palms of hands gently; Do not shake vigorously. (Same as: NovoCAROLINE Olvera)"single patient use only" Stable for 28 days at room temperature.Expires in _ ____ days from Date Start Date: 01/10/14 Stop Date: 01/15/14 Status: Discontinued NovoLOG FlexPen 3 unit, 0.03 mL, Route: SUB-Q, Drug form: SOLN, QID-Before Meals, PRN Blood Gluc ose Results, Start date: 01/10/14 14:51:00, Duration: 30 day, Stop date: 14:50:00 Notes: Roll in palms of hands gently; Do not shake vigorously. (Same as: Mookie Olvera)"single patient use only" Stable for 28 days at room temperature.Expires in _ ____ days from Date Start Date: 01/10/14 Stop Date: 01/15/14 Status: Discontinued NovoLOG FlexPen 2 unit, 0.02 mL, Route: SUB-Q, Drug form: SOLN, QID-Before Meals, PRN Blood Gluc ose Results, Start date: 01/10/14 14:50:00, Duration: 30 day, Stop date: 14:49:00 Notes: Roll in palms of hands gently; Do not shake vigorously. (Same as: Mookie Olvera)"single patient use only" Stable for 28 days at room temperature.Expires in _ ____ days from Date Start Date: 01/10/14 Stop Date: 01/15/14 Status: Discontinued NovoLOG FlexPen 1 unit, 0.01 mL, Route: SUB-Q, Drug form: SOLN, QID-Before Meals, PRN Blood Gluc ose Results, Start date: 01/10/14 14:52:00, Duration: 30 day, Stop date: 14:51:00 Notes: Roll in palms of hands gently; Do not shake vigorously. (Same as: NovoLO G)"single patient use only" Stable for 28 days at room temperature.Expires in _ ____ days from Date Start Date: 01/10/14 Stop Date: 01/15/14 Status: Discontinued NovoLOG FlexPen 5 unit, 0.05 mL, Route: SUB-Q, Drug form: SOLN, QID-Before Meals, PRN Blood Gluc ose Results, Start date: 01/10/14 14:52:00, Duration: 30 day, Stop date: 14:51:00 Notes: Roll in palms of hands gently; Do not shake vigorously. (Same as: Mookie Olvera)"single patient use only" Stable for 28 days at room temperature.Expires in _ ____ days from Date Start Date: 01/10/14 Stop Date: 01/15/14 Status: Discontinued NovoLOG FlexPen 6 unit, 0.06 mL, Route: SUB-Q, Drug form: SOLN, QID-Before Meals, PRN Blood Gluc ose Results, Start date: 01/10/14 14:51:00, Duration: 30 day, Stop date: 14:50:00 Notes: Roll in palms of hands gently; Do not shake vigorously. (Same as: NovoCAROLINE G)"single patient use only" Stable for 28 days at room temperature.Expires in _ ____ days from Date Start Date: 01/10/14 Stop Date: 01/15/14 Status: Discontinued NS 1,000 mL 1,000 mL, Rate: 64 ml/hr, Infuse over: 15.6 hr, Route: IV, Dosing Weight 69.545 kg, Total Volume: 1,000, Start date: 01/12/14 19:53:00, Duration: 30 day, Stop d ate: 02/11/14 19:52:00 Start Date: 01/12/14 Stop Date: 01/14/14 Status: Discontinued pantoprazole 40 mg, 1 tab, Route: PO, Drug form: ECTAB, Before Dinner, Dosing Weight 69.545, kg, Start date: 01/11/14 16:30:00, Duration: 30 day, Stop date: 02/09/14 16:30:0 0 Notes: Tablet should not be chewed or crushed.(Same as: Protonix) Start Date: 01/11/14 Stop Date: 01/15/14 Status: Discontinued predniSONE 60 mg, 3 tab, Route: PO, Drug form: TAB, Daily, Dosing Weight 69.545, kg, Start date: 01/16/14 9:00:00, Duration: 30 day, Stop date: 02/14/14 9:00:00 Notes: Take with food. Start Date: 01/16/14 Stop Date: 01/15/14 Status: Canceled predniSONE 60 mg, 3 tab, Route: PO, Drug form: TAB, ONCE, Dosing Weight 69.545, kg, Start d ate: 01/15/14 9:03:00, Stop date: 01/15/14 9:03:00 Notes: Take with food. Start Date: 01/15/14 Stop Date: 01/15/14 Status: Completed predniSONE 20 mg oral tablet 60 mg, PO, Daily, 0 Refill(s) Start Date: 01/15/14 Status: Ordered Slow Release Iron 45 mg oral tablet, extended release 45 mg, 1 tab, Route: PO, Drug form: ERTAB, Daily, Dosing Weight 69.545, kg, Star t date: 01/12/14 9:00:00, Duration: 30 day, Stop date: 02/10/14 9:00:00 Start Date: 01/12/14 Stop Date: 01/11/14 Status: Deleted Sodium Chloride 0.9% IV 500 mL 500 mL, Rate: 64 ml/hr, Infuse over: 7.8 hr, Route: IV, Dosing Weight 69.545 kg, Total Volume: 500, Start date: 01/12/14 15:28:00, Stop date: 02/09/14 14:47:00 Start Date: 01/12/14 Stop Date: 01/12/14 Status: Discontinued Sodium Chloride 0.9% IV 500 mL 500 mL, Rate: 64 ml/hr, Infuse over: 7.8 hr, Route: IV, Dosing Weight 69.545 kg, Total Volume: 500, Start date: 01/10/14 14:49:00, Duration: 30 day, Stop date: 02/09/14 14:48:00 Start Date: 01/10/14 Stop Date: 01/12/14 Status: Discontinued spironolactone 25 mg, 1 tab, Route: PO, Drug form: TAB, Q12H, Dosing Weight 69.545, kg, Start d ate: 01/11/14 21:00:00, Duration: 30 day, Stop date: 02/10/14 9:00:00 Notes: (Same As: Aldactone) Start Date: 01/11/14 Stop Date: 01/15/14 Status: Discontinued spironolactone 25 mg oral tablet 25 mg=1 tab, PO, BID, # 60 tab, 0 Refill(s) Start Date: 01/10/14 Status: Ordered tramadol 50 mg oral tablet 50 mg=1 tab, PO, Q4H, Pain, # 60 tab, 0 Refill(s) Start Date: 01/10/14 Stop Date: 01/20/14 Status: Ordered Results ELECTROLYTES 1 2 3 Most recent to oldest [Reference Range]: 141 mEq/L (01/13/14 5:41 AM) 137 mEq/L (01/12/14 3:40 AM) 134 mEq/L *LOW* (01/11/14 5:43 AM) Sodium Lvl [135-145 mEq/L] 3.9 mEq/L (01/13/14 5:41 AM) 4.0 mEq/L (01/12/14 3:40 AM) 4.2 mEq/L (01/11/14 5:43 AM) Potassium Lvl [3.5-5.1 mEq/L] 111 mEq/L *HI* (01/13/14 5:41 AM) 111 mEq/L *HI* (01/12/14 3:40 AM) 109 mEq/L (01/11/14 5:43 AM) Chloride Lvl [95-109 mEq/L] 20 mEq/L *LOW* (01/13/14 5:41 AM) 18 mEq/L *LOW* (01/12/14 3:40 AM) 15 mEq/L *NA* (01/11/14 5:43 AM) CO2 [24-32 mEq/L] 13.9 mEq/L (01/13/14 5:41 AM) 12.0 mEq/L (01/12/14 3:40 AM) 13.0 mEq/L (01/10/14 2:52 PM) AGAP [10.0-20.0 mEq/L] CHEM PANEL 1 2 3 Most recent to oldest [Reference Range]: 0.8 mg/dL (01/13/14 5:41 AM) 0.8 mg/dL (01/12/14 3:40 AM) 0.9 mg/dL (01/11/14 1:00 PM) Creatinine Lvl [0.5-1.4 mg/dL] 73 mL/min/1.73m2 1 *NA* (01/13/14 5:41 AM) 73 mL/min/1.73m2 2 *NA* (01/12/14 3:40 AM) 64 mL/min/1.73m2 3 *NA* (01/11/14 1:00 PM) eGFR 22 mg/dL (01/13/14 5:41 AM) 22 mg/dL (01/12/14 3:40 AM) 13 mg/dL (01/11/14 5:43 AM) BUN [7-22 mg/dL] 28 *HI* (01/13/14 5:41 AM) 28 *HI* (01/12/14 3:40 AM) 16 (01/11/14 5:43 AM) B/C Ratio [6-25] 184 mg/dL 4 *HI* (01/13/14 5:41 AM) 189 mg/dL 5 *HI* (01/12/14 3:40 AM) 261 mg/dL 6 *HI* (01/11/14 5:43 AM) Glucose Lvl [70-99 mg/dL] 5.3 g/dL *LOW* (01/15/14 6:41 AM) 5.6 g/dL *LOW* (01/14/14 4:10 AM) 5.2 g/dL *LOW* (01/13/14 5:41 AM) Total Protein [6.4-8.4 g/dL] 2.1 g/dL *LOW* (01/15/14 6:41 AM) 2.1 g/dL *LOW* (01/14/14 4:10 AM) 2.1 g/dL *LOW* (01/13/14 5:41 AM) Albumin Lvl [3.5-5.0 g/dL] 3.2 g/dL (01/15/14 6:41 AM) 3.5 g/dL (01/14/14 4:10 AM) 3.1 g/dL (01/13/14 5:41 AM) Globulin [2.0-4.0 g/dL] 0.7 (01/15/14 6:41 AM) 0.6 *LOW* (01/14/14 4:10 AM) 0.7 (01/13/14 5:41 AM) A/G Ratio [0.7-1.6] 7.2 mg/dL *LOW* (01/13/14 5:41 AM) 7.5 mg/dL *LOW* (01/12/14 3:40 AM) 8.1 mg/dL *LOW* (01/11/14 5:43 AM) Calcium Lvl [8.5-10.5 mg/dL] 398 unit/L *HI* (01/15/14 6:41 AM) 460 unit/L *HI* (01/14/14 4:10 AM) 540 unit/L *HI* (01/13/14 5:41 AM) ALT [0-65 unit/L] 143 unit/L *HI* (01/15/14 6:41 AM) 186 unit/L *HI* (01/14/14 4:10 AM) 246 unit/L *HI* (01/13/14 5:41 AM) AST [0-37 unit/L] 201 unit/L *HI* (01/15/14 6:41 AM) 199 unit/L *HI* (01/14/14 4:10 AM) 210 unit/L *HI* (01/13/14 5:41 AM) Alk Phos [39-136 unit/L] 12.1 mg/dL *HI* (01/15/14 6:41 AM) 12.6 mg/dL *HI* (01/14/14 4:10 AM) 13.3 mg/dL *HI* (01/13/14 5:41 AM) Bili Total [0.2-1.3 mg/dL] 9.6 mg/dL *HI* (01/15/14 6:41 AM) 9.9 mg/dL *HI* (01/14/14 4:10 AM) Bili Direct [0.0-0.3 mg/dL] 2.5 mg/dL *HI* (01/15/14 6:41 AM) 2.7 mg/dL *HI* (01/14/14 4:10 AM) Bili Indirect [0.0-1.0 mg/dL] 1Result Comment: The eGFR is calculated using the [...] be mul tiplied by the estimated BMI. 2Result Comment: The eGFR is calculated using [...] be mul tiplied by the estimated BMI. 4Interpretive Data: Adult reference range values reflect the clinical guidelines of the [employer]. 5Interpretive Data: Adult reference range values reflect the clinical guidelines of the [employer]. 6Interpretive Data: Adult reference range values reflect the clinical guidelines of the [employer]. HEMATOLOGY 1 2 3 Most recent to oldest [Reference Range]: 9.5 K/CMM (01/10/14 2:52 PM) WBC [3.7-10.4 K/CMM] 3.63 M/CMM *LOW* (01/10/14 2:52 PM) RBC [4.20-5.40 M/CMM] 11.5 g/dL *LOW* (01/10/14 2:52 PM) Hgb [12.0-16.0 g/dL] 34.0 % *LOW* (01/10/14 2:52 PM) Hct [36.0-48.0 %] 93.8 fL (01/10/14 2:52 PM) MCV [80.0-98.0 fL] 31.6 pg *HI* (01/10/14 2:52 PM) MCH [27.0-31.0 pg] 33.7 g/dL (01/10/14 2:52 PM) MCHC [32.0-36.0 g/dL] 16.4 % *HI* (01/10/14 2:52 PM) RDW [11.5-14.5 %] 138 K/CMM (01/11/14 1:00 PM) 153 K/CMM (01/10/14 2:52 PM) Platelet [133-450 K/CMM] 10.1 fL (01/10/14 2:52 PM) MPV [7.4-10.4 fL] 53.3 % (01/10/14 2:52 PM) Segs [45.0-75.0 %] 26.7 % (01/10/14 2:52 PM) Lymphocytes [20.0-40.0 %] 17.9 % *HI* (01/10/14 2:52 PM) Monocytes [2.0-12.0 %] 0.8 % (01/10/14 2:52 PM) Eosinophils [0.0-4.0 %] 1.3 % *HI* (01/10/14 2:52 PM) Basophils [0.0-1.0 %] 5.1 K/CMM (01/10/14 2:52 PM) Segs-Bands # [1.5-8.1 K/CMM] 2.5 K/CMM (01/10/14 2:52 PM) Lymphocytes # [1.0-5.5 K/CMM] 1.7 K/CMM *HI* (01/10/14 2:52 PM) Monocytes # [0.0-0.8 K/CMM] 0.1 K/CMM (01/10/14 2:52 PM) Eosinophils # [0.0-0.5 K/CMM] 0.1 K/CMM (01/10/14 2:52 PM) Basophils # [0.0-0.2 K/CMM] 36.3 seconds 7 *HI* (01/11/14 1:00 PM) PTT [22.9-35.8 seconds] 7Interpretive Data: Heparin Therapeutic Range: 57 - 92 Seconds TUMOR MARKERS 1 2 3 Most recent to oldest [Reference Range]: 36.2 unit/mL *HI* (01/10/14 2:52 PM) CA 19-9 [0.0-35.0 unit/mL] Medications Administered During Your Visit No data available for this section Immunizations Vaccine Date Refusal Reason Hx influenza vaccine-unspecified 10/18/13 tuberculin purified protein derivative 07/17/12 Social History Social History Type Response Smoking Status Former smoker, Type: Cigarettes, Exposure to Tobacco Smoke None, Cigarette Smoking Last 365 Days No, Reg Smoking Cessation Counseling No Assessment and Plan Extracted from: Title: Clinical Document Author: Rafi Sage DO Date: 01/14/14 Progress Daily [facility] SUBJECTIVE Pt is feeling better with no pain in her left eye which is still red. denies fever or chills OBJECTIVE Vital Signs (last 24 hrs) Last Charted Minimum Maximum Temp98 (JAN 14 08:00)97.5 (JAN 13 11:48)98.2 (JAN 13 20:15) Heart Rate79 (JAN 14 08:00)73 (JAN 14 00:51)79 (JAN 14 08:00) Resp Rate 18 (JAN 14 08:00)18 (JAN 13 11:48)18 (JAN 13 11:48) SBPH 148 (JAN 14 08:00)127 (JAN 13 11:48)H 148 (JAN 14 08:00) DBP79 (JAN 14 08:00)64 (JAN 13 15:48)79 (JAN 13 20:15) Labs (Last four charted values) WBC 9.5(JAN 10) Hgb L 11.5(JAN 10) Hct L 34.0(JAN 10) Plt 138(JAN 11)153(JAN 10) Na 141(JAN 13)137(JAN 12)L 134(JAN 11)135(JAN 10) K 3.9(JAN 13)4.0(JAN 12)4.2(JAN 11)4.0(JAN 10) CO2 L 20(JAN 13)L 18(JAN 12)15(JAN 11)L 17(JAN 10) Cl H 111(JAN 13)H 111(JAN 12)109(JAN 11)109(JAN 10) Cr 0.8(JAN 13)0.8(JAN 12)0.9(JAN 11)0.8(JAN 11) BUN 22(JAN 13)22(JAN 12)13(JAN 11)11(JAN 10) Glucose Random H 184(JAN 13)H 189(JAN 12)H 261(JAN 11)L 61(JAN 10) Ca L 7.2(JAN 13)L 7.5(JAN 12)L 8.1(JAN 11)L 8.1(JAN 10) PTT H 36.3(JAN 11) Input/Output RecordInOutBal 01/924hr Tot 302 0 302 01/824hr Tot 2442 0 2442 ASSESSMENT & EXAM Gen. Pt is AOX4 in no acute distress HEET: Normocephalic, nontraumatic.left eye hemorrhage with sclera icterus NECK: Supple, no JVD or Lymphadenopathy LUNGS: Clear on auscultation B/l with no wheezing or crackles HEART: S1, S2.RRR with no murmurs ABDOMEN: Soft, NT/ND with good BS CENTRAL NERVOUS SYSTEM: Patient moving all extremities grossly well. LOWER EXTREMITIES: No C/C/E PLAN & TREATMENT Pt with a hx id Autoimmune hepatitis admitted with jaundice with elevated LFT -Appreciated input from GI -C/w IV steroid at a redused dose -LFTs are improving -Monitor blood glucose closely -D/C IVF -Monitor left eye hemorrhage closely -Pt will need Ophthalmology f/u as out pt DIAGNOSES & PROBLEMS Jaundice Autoimmune hepatitis Anorexia Lupus Rheumothoid [...]
--- OUTSIDE RECORDS SUMMARY | 2018-08-19 12:36 | XMS REPORT | Summary of Care ---
Author Organization Unknown Address Unknown Phone Unavailable Encounter [facility] Obeyr_chase(GARCIA) [id number] Date(s): 12/25/13 - 12/25/13 [facility] [address] Discharge Disposition: Home Physician Attending: Zay Troncoso MD Physician_Referring: Zay Troncoso MD Reason for Visit SCREENING Problem List Condition Effective Dates Status Health [...]
--- OUTSIDE RECORDS SUMMARY | 2018-08-19 12:37 | XMS REPORT | Summary of Care ---
Author Author [facility] Organization [facility] Address Unknown Phone Unavailable Encounter DEONDRE Crane(GARCIA) [id number] Date(s): 04/21/15 - 04/21/15 [facility] [address] [place] [address]- Discharge Disposition: Home Attending Physician: Zay Troncoso MD Referring Physician: Zay Troncoso MD Vital Signs No data available for this section Problem List Condition Effective Dates Status Health [...] Adverse Reactions, Alerts Substance Reaction Severity Status codeine1 Active Demerol Active meperidine2 Active 1Data migrated from [employer] on 04/08/15. Originally documented as CODEINE. 2Data migrated from [employer] on 06/05/14. Originally documented as DEMEROL. Medications No data available for this section Results No data available for this section Immunizations [...] Smoking Cessation Counseling No Assessment and Plan No data available for this section
== END 2018-08-19 12:50 | disposition home or self-care (01) ==
LOC: FSED 12:24
DX: H11.31 Conjunctival hemorrhage, right eye (principal)
CPT/HCPCS: 99283